=== PATIENT | female | born 1955 ===

== ENCOUNTER 2018-06-09 15:05 | Inpatient (IN) | payer OTHER ==
[2018-06-09] MEDS ORDERED: Naloxone 0.4 mg/ml Inj (Adult) ONE (15:16)
[2018-06-09 15:29] VITALS: BMI 24.1
--- NOTE | 2018-06-09 15:31 | CT ---
Date of service: 06/09/2018 PROCEDURE: CT HEAD WITHOUT CONTRAST. HISTORY: CODE STROKE COMPARISON: None available. TECHNIQUE: Axial computed tomography images were obtained through the head/brain without intravenous contrast. Radiation dose: Total exam DLP = 81.09 mGy-cm. This CT exam was performed using one or more of the following dose reduction techniques: Automated exposure control, adjustment of the mA and/or kV according to patient size, and/or use of iterative reconstruction technique. FINDINGS: HEMORRHAGE: No intracranial hemorrhage. BRAIN: No mass effect or edema. Mild diffuse atrophy. Moderate patchy and confluent periventricular and deep/subcortical white matter lucency consistent with microvascular ischemic change. Old bilateral basal ganglia lacunar infarcts. Old bilateral thalamic lacunar infarcts. Old left cerebellar hemispheric infarct. VENTRICLES: Unremarkable. No hydrocephalus. CALVARIUM: Unremarkable. PARANASAL SINUSES: Unremarkable as visualized. No significant inflammatory changes. MASTOID AIR CELLS: Unremarkable as visualized. No inflammatory changes. OTHER FINDINGS: None. IMPRESSION: No evidence of acute infarct. Old left cerebellar infarct and bilateral basal ganglia and thalamic lacunar infarcts. Moderate chronic white matter ischemic change. The findings in this report were discussed by telephone with Dr. Cruz at 3:20 p.m. on 06/09/2018.
--- NOTE | 2018-06-09 15:33 | RAD ---
Date of service: 06/09/2018 HISTORY: Code Stroke COMPARISON: No prior. FINDINGS: LUNGS: No active pulmonary disease. PLEURA: No significant pleural effusion identified, no pneumothorax apparent. CARDIOVASCULAR: Normal heart size. No congestive change. Right PICC catheter terminating in the region of the superior vena cava. OSSEOUS STRUCTURES: No significant abnormalities. VISUALIZED UPPER ABDOMEN: Normal. OTHER FINDINGS: None. IMPRESSION: No infiltrate. Right PICC catheter.
[2018-06-09 15:38] LABS: VENOUS BLOOD GAS BASE EXCESS -4.4 mmol/L (0.0-2.0); VENOUS BLOOD GAS PCO2 45 mmHg (40-60); VENOUS BLOOD GAS PO2 39 mm/Hg (30-55)
[2018-06-09 15:40] LABS: BASO # 0.1 K/uL (0.0-0.2); BASO % 0.6 % (0.0-2.0); EOS # 0.5 K/uL (0.0-0.7); EOS % 4.6 % (0.0-4.0); HEMOGLOBIN 12.5 g/dL (12.0-16.0); LYMPH # 2.2 K/uL (1.0-4.3); LYMPH % 19.4 % (20.0-40.0); MEAN CELL VOLUME 88.1 fl (81.0-99.0); MEAN CORPUSCULAR HEMOGLOBIN 28.3 pg (27.0-31.0); MEAN CORPUSCULAR HGB CONC 32.1 g/dL (33.0-37.0); MEAN PLATELET VOLUME 11.3 fl (7.2-11.7); MONO # 0.7 K/uL (0.0-0.8); MONO % 6.1 % (0.0-10.0); NEUT % 69.3 % (50.0-75.0); RBC 4.41 Mil/uL (3.80-5.20); RED CELL DISTRIBUTION WIDTH 18.2 % (11.5-14.5); WHITE BLOOD COUNT 11.5 K/uL (4.8-10.8)
[2018-06-09 15:46] LABS: INR 1.5; PROTHROMBIN TIME 17.2 Seconds (9.8-13.1)
[2018-06-09 15:48] LABS: PARTIAL THROMBOPLASTIN TIME 36.4 Seconds (25.6-37.1)
[2018-06-09] MEDS: Sodium Chloride 0.9% 1,000 ML IV SCH (15:52)
[2018-06-09 15:53] LABS: ALB/GLOB RATIO 0.8 (1.0-2.1); ALBUMIN 3.1 g/dL (3.5-5.0); ALT/SGPT 24 U/L (9-52); AST/SGOT 18 U/L (14-36); BLOOD UREA NITROGEN 16 mg/dl (7-17); GFR NON-AFRICAN AMERICAN 56; HDL CHOLESTEROL 31 MG/DL (30-70)
[2018-06-09 16:03] LABS: LDL CHOLESTEROL 45 mg/dL (0-129)
--- NOTE | 2018-06-09 16:04 | ED PDOC ---
HPI: Altered Mental Status Time Seen by Provider: 06/09/18 15:07 Chief Complaint (Nursing): Altered Mental Status Chief Complaint (Provider): Altered Mental Status History Per: EMS History/Exam Limitations: Clinical Condition Onset/Duration Of Symptoms: Hrs Onset Of Symptoms: Cannot Confirm Onset Current Symptoms Are (Timing): Still Present Additional Complaint(s): Barbara Miles is a 62 year old female with a past medical history of diabetes who was brought to the ED by EMS for evaluation of altered mental status. Patient is unable to give any history, but according to EMS, they were called to her home after she activated her life alert system. She was unable to open the door so they had to break into her apartment, where they found the patient on the ground poorly responsive. Patient at the scene was breathing with normal vital signs. PMD: Dr. Abdi (obtained later) Past Medical History Reviewed: Historical Data, Nursing Documentation, Vital Signs, Unable To Obtain Vital Signs: Last Vital Signs Temp 98.3 F 06/09/18 15:51 Pulse 67 06/09/18 15:57 Resp 20 06/09/18 15:57 BP 161/76 H 06/09/18 15:57 Pulse Ox 100 06/09/18 15:57 - Medical History PMH: CAD, Dementia, Diabetes, Deep Vein Thrombosis, GERD, HTN, Chronic Kidney Disease Other PMH: neuropathy, legally blind, recently treated osteomyelitis diabetic foot ulc - Surgical History Surgical History: Other surgeries: previous debridement of bilateral feet - Family History Family History: States: Unknown Family Hx - Social History Current smoker - smoking cessation education provided: Yes - Home Medications Home Medications: Ambulatory Orders Medication Instructions Recorded Apixaban [Eliquis] 5 mg PO Q12 06/09/18 Atorvastatin [Lipitor] 10 mg PO HS 06/09/18 Famotidine [Pepcid] 20 mg PO DAILY 06/09/18 Insulin Detemir [Levemir] 20 unit SC QAM 06/09/18 Insulin Detemir [Levemir] 30 unit SC HS 06/09/18 Insulin Lispro [humALOG] unit SC ASDIR 06/09/18 Lactobacillus Acidophilus 1 tab PO DAILY 06/09/18 [Acidophilus Probiotic] Pantoprazole Sodium [Protonix] 40 mg PO DAILY 06/09/18 RX: Aspirin [Ecotrin] 81 mg PO DAILY 06/09/18 RX: Atenolol [Tenormin] 50 mg PO DAILY 06/09/18 RX: Donepezil [Aricept] 10 mg PO DAILY 06/09/18 RX: Gabapentin [Neurontin] 400 mg PO Q8 06/09/18 RX: Losartan [Cozaar] 100 mg PO DAILY 06/09/18 RX: traMADol [Ultram] 50 mg PO Q6 PRN 06/09/18 cycloSPORINE [Restasis] 1 drop EACHEYE Q12 06/09/18 - Allergies Allergies/Adverse Reactions: Allergies Allergy/AdvReac Type Severity Reaction Status Date / Time acetaminophen [From Percocet] Allergy SWELLING Verified 06/09/18 16:17 oxycodone [From Percocet] Allergy SWELLING Verified 06/09/18 16:17 hydromorphone [From Dilaudid] AdvReac SHORTNESS Verified 06/09/18 16:17 OF BREATH Review of Systems ROS Statement: Except As Marked, All Systems Reviewed And Found Negative Review Of Systems: ROS cannot be obtained secondary to pt's inabilty to answer questions. Physical Exam - Reviewed Nursing Documentation Reviewed: Yes Vital Signs Reviewed: Yes - Physical Exam Appears: Positive for: In Acute Distress (neurologic) Head Exam: Positive for: ATRAUMATIC, NORMOCEPHALIC Skin: Positive for: Warm, Dry Eye Exam: Positive for: EOMI, PERRL, Other (no gaze deviation, abnormal light reflex in right eye possible surgical lens) ENT: Positive for: Other (dry mucus membranes) Neck: Positive for: Painless ROM, Supple Cardiovascular/Chest: Positive for: Regular Rate, Rhythm. Negative for: Murmur Respiratory: Positive for: Normal Breath Sounds. Negative for: Respiratory Distress Extremity: Positive for: Other (Picc Line in place in right upper extremity, right lower extremity BKA, left foot dressing in place, left foot edema; bilateral upper extremity: equal movement) Lymphatic: Negative for: Adenopathy Neurologic/Psych: Negative for: Other (lethargic, responsive to painful stimuli and withdrawing appropriately to pain; gag reflex intact (ontesting gag, patient coughed and suddnely said, "I want to go home"), minially verbal ) - Laboratory Results Result Diagrams: 06/10/18 04:22 06/10/18 04:22 - ECG O2 Sat by Pulse Oximetry: 100 (RA) Pulse Ox Interpretation: Normal Medical Decision Making Medical Decision Making: Time: 15:13 Impression: Altered Mental Status Differentials (including but not limited to): Stroke, Metabolic encephalopathy, drug and alcohol intoxication, sepsis, dehydration, medication adverse reaction Plan: --Blood Type and Screen --VBG Shock Panel --CT Head --EKG --Alcohol Serum --Ammonia --CMP --Drug Screen --Hemoglobin A1C --Lipid Panel --Magnesium --Phosphorous --TSH --Troponin --CBC --Coags --Chest X-ray --IV Fluids --Blood Culture --Urine Culture --Urinalysis --Patient found to be known patient to Hospital system named Barbara Miles: MR Number: [id number] --Patient has a history of: diabetes, chronic kidney disease, neuropathy, hypertension, legally blind, dementia, and recently treated osteomyelitis diabetic foot ulcer, CAD, GERD, and DVT --Surgical history: , previous debridement of bilateral --Patient is a smoker. --PMD: Dr. Abdi 15:59 --On reevaluation, patient continues to request to go home asking where her sister Graciela Miles is and her son Chidi Johnson. --Phone number available Graciela Miles: voicemail left [address] Orellana covering for Dr Abdi. Pt to be hospitalized for observation for possible syncope. Pt's family in ER. Pt now even more alert. Family in ER with patient and report that she sometimes episodes like this. No specific cause elucidated. Made aware of plan of care. Scribe Attestation: Documented by Mojgan Givens, acting as a scribe for Rebecca Cruz MD. Provider Scribe Attestation: All medical record entries made by the Scribe were at my direction and pers onally dictated by me. I have reviewed the chart and agree that the record accurately reflects my personal performance of the history, physical exam, medical decision making, and the department course for this patient. I have also personally directed, reviewed, and agree with the discharge instructions and disposition. Disposition - Clinical Impression Clinical Impression: Altered mental status - Disposition Disposition Time: 18:00 Condition: FAIR - Pt Status Changed To: Hospital Disposition Of: Observation - POA Present On Arrival: None
[2018-06-09 18:48] LABS: SQUAMOUS EPITHIAL 6 /hpf (0-5); URINE BACTERIA RARE (<OCC); URINE BILIRUBIN NEGATIVE (NEGATIVE); URINE BLOOD SMALL (NEGATIVE); URINE CLARITY SLIGHTY-CLOUDY (Clear); URINE COLOR YELLOW (YELLOW); URINE GLUCOSE (UA) 50 mg/dL (Normal); URINE LEUKOCYTE ESTERASE NEG Leu/uL (Negative); URINE PROTEIN >=500 mg/dL (NEGATIVE); URINE UROBILINOGEN 0.2-1.0 mg/dL (0.2-1.0)
[2018-06-09 19:10] LABS: BARBITURATES, UR NEGATIVE (NEGATIVE); BENZODIAZEPINES, UR NEGATIVE (NEGATIVE); OPIATES, UR NEGATIVE (NEGATIVE); PHENCYCLIDINE, UR NEGATIVE (NEGATIVE)
[2018-06-09] MEDS ORDERED: Cefepime 2 GM in Sodium Chloride 0.9% 100 ML IVPB STA (20:33)
[2018-06-10] MEDS: Sodium Chloride 0.9% 1,000 ML IV SCH ×3 (02:18→23:15)
[2018-06-10 05:33] LABS: HEMOGLOBIN 11.6 g/dL (12.0-16.0); MEAN CELL VOLUME 87.9 fl (81.0-99.0); MEAN CORPUSCULAR HEMOGLOBIN 28.1 pg (27.0-31.0); MEAN CORPUSCULAR HGB CONC 31.9 g/dL (33.0-37.0); RBC 4.14 Mil/uL (3.80-5.20); RED CELL DISTRIBUTION WIDTH 18.2 % (11.5-14.5); WHITE BLOOD COUNT 9.9 K/uL (4.8-10.8)
[2018-06-10 05:42] LABS: BLOOD UREA NITROGEN 13 mg/dl (7-17); CALCIUM 8.4 mg/dL (8.4-10.2); GFR NON-AFRICAN AMERICAN > 60
[2018-06-10] MEDS: Insulin Lispro (humaLOG) 100 Units/ml Inj SC SCH ×4 (08:56→23:09)
[2018-06-10] MEDS ORDERED: Pantoprazole 40 mg EC Tab PO SCH (09:00)
[2018-06-10] MEDS: Insulin Detemir 100 Units/ml Inj SC SCH ×2 (09:12→23:10)
--- NOTE | 2018-06-10 10:49 | CT ---
APPROVED REPORT Date of service: 06/09/2018 EKG Measurement Heart [id number] CA [id number] <Conclusion> Sinus rhythm with 1st degree AV block Otherwise normal ECG
[2018-06-10] MEDS: Lactobacillus Acidophilus 500 MU Cap PO SCH (11:13)
--- NOTE | 2018-06-10 12:58 | CP.PCM.CON ---
Addendum entered and electronically signed by Dima Nieto DPM 06/10/18 13:10: Ordered Left foot 3 views X-ray. Original Note: History of Present Illness - History of Present Illness History of Present Illness: Podiatry Consult note for Dr. Houston 62 y/o F with PMH diabetes, right BKA, and chronic left foot wounds seen and evaluated at the bedside for left heel ulcer. Patient is poor historian at this moment due to he current medical condition. Patient is oriented with persons but she looks confused. All the patient data obtained from her chart and her nurse. Patient was brought yesterday to the ED for AMS and probably CVS. Patient got admitted to ICU and Rosemarie Bates got consulted for her left heel ulcer. Patient is well known to the podiatry service for her long standing history of left foot ulcerations and PAD. Patient is currently on 6 weeks of IV ABx for her left foot acute OM and has a PICC line. Her nurse denies any overnight N/V/F/C/CP/SOB/D. PMH diabetes, right BKA, and chronic left foot wounds PSH: R leg BKA, multiple b/l foot wound debridements Allergies: Hydromorphone, shrimp Social Hx: Tobacco use with 40 pack/ year history, No Hx of ETOH/illicit drug use Review of Systems - Review of Systems Review of Systems: As per HPI Past Patient History - Past Social History Smoking Status: Former Smoker - CARDIAC Hx Cardiac Disorders: Yes (HTN, high cholesterol) Hx Hypercholesterolemia: Yes Hx Hypertension: Yes - PULMONARY Hx Respiratory Disorders: No - NEUROLOGICAL Hx Neurological Disorder: Yes (CVA) HX Cerebrovascular Accident: Yes Hx Dementia: Yes - RENAL Hx Chronic Kidney Disease: Yes - ENDOCRINE/METABOLIC Hx Endocrine Disorders: Yes (DM) Hx Diabetes Mellitus Type 2: Yes - HEMATOLOGICAL/ONCOLOGICAL Hx Blood Disorders: No - INTEGUMENTARY Hx Dermatological Problems: No - MUSCULOSKELETAL/RHEUMATOLOGICAL Hx Musculoskeletal Disorders: Yes (arthritis, RT BKA, osetomylitis left heel) Hx Arthritis: Yes Hx Falls: Yes Hx Osteomyelitis: Yes - GASTROINTESTINAL Hx Gastrointestinal Disorders: Yes Hx Gastroesophageal Reflux: Yes Hx Nausea: Yes Hx Ulcer: Yes - GENITOURINARY/GYNECOLOGICAL Hx Genitourinary Disorders: Yes (incontinence) Hx Incontinence: Yes - PSYCHIATRIC Hx Psychophysiologic Disorder: Yes (anxiety) Hx Anxiety: Yes Hx Substance Use: No - SURGICAL HISTORY Hx Surgeries: Yes (RBKA) Hx Amputation: Yes - ANESTHESIA Hx Anesthesia: Yes Hx Anesthesia Reactions: No Hx Malignant Hyperthermia: No Has any member of the family had a problem w/ anesthesia?: No Meds Allergies/Adverse Reactions: Allergies Allergy/AdvReac Type Severity Reaction Status Date / Time acetaminophen [From Percocet] Allergy SWELLING Verified 06/09/18 16:17 oxycodone [From Percocet] Allergy SWELLING Verified 06/09/18 16:17 hydromorphone [From Dilaudid] AdvReac SHORTNESS Verified 06/09/18 16:17 OF BREATH - Medications Medications: Current Medications Apixaban (Eliquis) 5 mg PO Q12 [facility]; Protocol Last Admin: 06/10/18 08:54 Dose: 5 mg Aspirin (Aspirin Chewable) 81 mg PO DAILY [facility] Last Admin: 06/10/18 11:13 Dose: 81 mg Atorvastatin Calcium (Lipitor) 10 mg PO HS [facility] Donepezil HCl (Aricept) 10 mg PO DAILY [facility] Last Admin: 06/10/18 08:52 Dose: 10 mg Famotidine (Pepcid) 20 mg PO DAILY [facility] Gabapentin (Neurontin) 400 mg PO Q8H [facility] Last Admin: 06/10/18 08:53 Dose: 400 mg Sodium Chloride (Sodium Chloride 0.9%) 1,000 mls @ 100 mls/hr IV .Q10H [facility] Last Admin: 06/10/18 12:22 Dose: 100 mls/hr Insulin Detemir (Levemir) 20 units SC QAM [facility] Last Admin: 06/10/18 09:12 Dose: Not Given Insulin Detemir (Levemir) 30 units SC [facility] Insulin Human Lispro (Humalog) 0 units SC [facility]; Protocol Last Admin: 06/10/18 08:56 Dose: Not Given Lactobacillus Acidophilus (Bacid Acidophilus) 1 cap PO DAILY [facility] Last Admin: 06/10/18 11:13 Dose: 1 cap Losartan Potassium (Cozaar) 100 mg PO DAILY [facility] Last Admin: 06/10/18 08:51 Dose: 100 mg Pantoprazole Sodium (Protonix Ec Tab) 40 mg PO DAILY [facility] Last Admin: 06/10/18 08:53 Dose: 40 mg Tramadol HCl (Ultram) 50 mg PO Q6 PRN PRN Reason: Other Last Admin: 06/10/18 08:46 Dose: 50 mg Physical Exam - Constitutional Appears: Non-toxic - Head Exam Head Exam: ATRAUMATIC, NORMOCEPHALIC - Extremities Exam Additional comments: Left LE focused exam, R LE BKA Vasc: DP/PT pulses faintly palpable 1/4. Temp gradient warm to cool from pr oximal to distal. Cap refill < 3 seconds to all digits. No edema or erythema noted. Neuro: Couldn't be assessed due to the patient current mental status. Derm: Approx. 3 cm x 2 cm X0.2 cm Oval ulceration noted to plantar/posterior left heel. Wound have fibrous and granular base 70:30.Positive probe to bone. no malodor. No drainage. No tracking, tunneling or undermining appreciated. No erythema MSK: Rigid contractures of all digits 1-5. Limited ROM at all major joints and diffuse arthritic changes. Muscle power couldn't be assessed due to the patient current mental status. No pain on palpating the abby-ulcerative area. Results - Vital Signs Recent Vital Signs: Last Vital Signs Temp 98.4 F 06/10/18 08:00 Pulse 66 06/10/18 10:00 Resp 14 06/10/18 10:00 BP 174/73 H 06/10/18 10:00 Pulse Ox 100 06/10/18 10:00 - Labs Result Diagrams: 06/10/18 04:22 06/10/18 04:22 Labs: Laboratory Results - last 24 hr 06/09/18 06/09/18 06/09/18 15:05 15:20 15:35 WBC 11.5 H RBC 4.41 Hgb 12.5 Hct 38.8 MCV 88.1 MCH 28.3 MCHC 32.1 L RDW 18.2 H Plt Count 286 MPV 11.3 Neut % (Auto) 69.3 Lymph % (Auto) 19.4 L [place] % (Auto) 6.1 Eos % (Auto) 4.6 H Baso % (Auto) 0.6 Neut # (Auto) 8.0 H Lymph # (Auto) 2.2 [place] # (Auto) 0.7 Eos # (Auto) 0.5 Baso # (Auto) 0.1 PT INR APTT pO2 39 VBG pH 7.30 L VBG pCO2 45 VBG HCO3 20.7 VBG Total CO2 23.5 VBG O2 Sat (Calc) 77.1 H VBG Base Excess -4.4 L VBG Potassium 3.8 Sodium 138.0 Chloride 109.0 H Glucose 144 H Lactate 1.7 FiO2 21.0 Potassium Carbon Dioxide Anion Gap BUN Creatinine Est GFR ( Amer) Est GFR (Non-Af Amer) POC Glucose (mg/dL) Random Glucose Hemoglobin A1c Calcium Phosphorus Magnesium Total Bilirubin AST ALT Alkaline Phosphatase Troponin I Total Protein Albumin Globulin Albumin/Globulin Ratio Triglycerides Cholesterol LDL Cholesterol Direct HDL Cholesterol TSH 3rd Generation Venous Blood Potassium 3.8 Urine Color Urine Clarity Urine pH Ur Specific [place] Urine Protein Urine Glucose (UA) Urine Ketones Urine Blood Urine Nitrate Urine Bilirubin Urine Urobilinogen Ur Leukocyte Esterase Urine RBC (Auto) Urine Microscopic WBC Ur Squamous Epith Cells Urine Bacteria Urine Opiates Screen Urine Methadone Screen Ur Barbiturates Screen Ur Phencyclidine Scrn Ur Amphetamines Screen U Benzodiazepines Scrn U Oth Cocaine Metabols U Cannabinoids Screen Alcohol, Quantitative Blood Type A POSITIVE Blood Type Confirm Antibody Screen Negative BBK History Checked No verified bt 06/09/18 06/09/18 06/09/18 15:35 15:35 15:35 WBC RBC Hgb Hct MCV MCH MCHC RDW Plt Count MPV Neut % (Auto) Lymph % (Auto) [place] % (Auto) Eos % (Auto) Baso % (Auto) Neut # (Auto) Lymph # (Auto) [place] # (Auto) Eos # (Auto) Baso # (Auto) PT 17.2 H INR 1.5 APTT 36.4 pO2 VBG pH VBG pCO2 VBG HCO3 VBG Total CO2 VBG O2 Sat (Calc) VBG Base Excess VBG Potassium Sodium 142 Chloride 113 H Glucose Lactate FiO2 Potassium 3.8 Carbon Dioxide 21 L Anion Gap 12 BUN 16 Creatinine 1.0 Est GFR ( Amer) > 60 Est GFR (Non-Af Amer) 56 POC Glucose (mg/dL) Random Glucose 134 H Hemoglobin A1c 6.5 Calcium 9.0 Phosphorus 3.0 Magnesium 1.9 Total Bilirubin 0.2 AST 18 ALT 24 Alkaline Phosphatase 117 Troponin I 0.0120 Total Protein 7.0 Albumin 3.1 L Globulin 3.9 Albumin/Globulin Ratio 0.8 L Triglycerides 199 H Cholesterol 115 LDL Cholesterol Direct 45 HDL Cholesterol 31 TSH 3rd Generation 0.74 Venous Blood Potassium Urine Color Urine Clarity Urine pH Ur Specific [place] Urine Protein Urine Glucose (UA) Urine Ketones Urine Blood Urine Nitrate Urine Bilirubin Urine Urobilinogen Ur Leukocyte Esterase Urine RBC (Auto) Urine Microscopic WBC Ur Squamous Epith Cells Urine Bacteria Urine Opiates Screen Urine Methadone Screen Ur Barbiturates Screen Ur Phencyclidine Scrn Ur Amphetamines Screen U Benzodiazepines Scrn U Oth Cocaine Metabols U Cannabinoids Screen Alcohol, Quantitative < 10 Blood Type Blood Type Confirm Antibody Screen BBK History Checked 06/09/18 06/09/18 06/09/18 17:14 18:34 18:34 WBC RBC Hgb Hct MCV MCH MCHC RDW Plt Count MPV Neut % (Auto) Lymph % (Auto) [place] % (Auto) Eos % (Auto) Baso % (Auto) Neut # (Auto) Lymph # (Auto) [place] # (Auto) Eos # (Auto) Baso # (Auto) PT INR APTT pO2 VBG pH VBG pCO2 VBG HCO3 VBG Total CO2 VBG O2 Sat (Calc) VBG Base Excess VBG Potassium Sodium Chloride Glucose Lactate FiO2 Potassium Carbon Dioxide Anion Gap BUN Creatinine Est GFR ( Amer) Est GFR (Non-Af Amer) POC Glucose (mg/dL) Random Glucose Hemoglobin A1c Calcium Phosphorus Magnesium Total Bilirubin AST ALT Alkaline Phosphatase Troponin I Total Protein Albumin Globulin Albumin/Globulin Ratio Triglycerides Cholesterol LDL Cholesterol Direct HDL Cholesterol TSH 3rd Generation Venous Blood Potassium Urine Color Yellow Urine Clarity Slighty-cloudy Urine pH 6.0 Ur Specific [place] 1.010 Urine Protein >=500 Urine Glucose (UA) 50 Urine Ketones Negative Urine Blood Small Urine Nitrate Negative Urine Bilirubin Negative Urine Urobilinogen 0.2-1.0 Ur Leukocyte Esterase Neg Urine RBC (Auto) 4 H Urine Microscopic WBC 1 Ur Squamous Epith Cells 6 H Urine Bacteria Rare Urine Opiates Screen Negative Urine Methadone Screen Negative Ur Barbiturates Screen Negative Ur Phencyclidine Scrn Negative Ur Amphetamines Screen Negative U Benzodiazepines Scrn Negative U Oth Cocaine Metabols Negative U Cannabinoids Screen Negative Alcohol, Quantitative Blood Type Blood Type Confirm A POSITIVE Antibody Screen BBK History Checked 06/10/18 06/10/18 06/10/18 01:43 04:22 04:22 WBC 9.9 RBC 4.14 Hgb 11.6 L Hct 36.4 MCV 87.9 MCH 28.1 MCHC 31.9 L RDW 18.2 H Plt Count 262 MPV Neut % (Auto) Lymph % (Auto) [place] % (Auto) Eos % (Auto) Baso % (Auto) Neut # (Auto) Lymph # (Auto) [place] # (Auto) Eos # (Auto) Baso # (Auto) PT INR APTT pO2 VBG pH VBG pCO2 VBG HCO3 VBG Total CO2 VBG O2 Sat (Calc) VBG Base Excess VBG Potassium Sodium 143 Chloride 115 H Glucose Lactate FiO2 Potassium 3.7 Carbon Dioxide 22 Anion Gap 10 BUN 13 Creatinine 0.9 Est GFR ( Amer) > 60 Est GFR (Non-Af Amer) > 60 POC Glucose (mg/dL) 149 H Random Glucose 116 H Hemoglobin A1c Calcium 8.4 Phosphorus Magnesium Total Bilirubin AST ALT Alkaline Phosphatase Troponin I Total Protein Albumin Globulin Albumin/Globulin Ratio Triglycerides Cholesterol LDL Cholesterol Direct HDL Cholesterol TSH 3rd Generation Venous Blood Potassium Urine Color Urine Clarity Urine pH Ur Specific [place] Urine Protein Urine Glucose (UA) Urine Ketones Urine Blood Urine Nitrate Urine Bilirubin Urine Urobilinogen Ur Leukocyte Esterase Urine RBC (Auto) Urine Microscopic WBC Ur Squamous Epith Cells Urine Bacteria Urine Opiates Screen Urine Methadone Screen Ur Barbiturates Screen Ur Phencyclidine Scrn Ur Amphetamines Screen U Benzodiazepines Scrn U Oth Cocaine Metabols U Cannabinoids Screen Alcohol, Quantitative Blood Type Blood Type Confirm Antibody Screen BBK History Checked Assessment & Plan - Assessment and Plan (Free Text) Assessment: 62 y/o F patient seen and evaluated for an ulcer of the L heel Plan: Patient seen and evaluated at the bedside with Dr. Houston. Plan discussed with Dr. Houston Charts, Labs and vitals reviewed: Afebrile, WBC 9.9 Patient received a stat dose of Cefepime 2 gms in the ED. LE MRI (05/02): possible early acute and or developing acute osteomyelitis with possible underlying cellulitis Multipodus boot ordered to be worn at all times while in bed Wound dressed with xeroform, DSD Ordered Bactroban to be added to the dressing starting tomorrow No plan for surgical intervention at this time Podiatry will continue to follow while patient in house. - Date & Time Date: 06/10/18 Time: 12:58
--- NOTE | 2018-06-10 14:16 | CARD ---
APPROVED REPORT Date of service: 06/10/2018 EXAM: Two-dimensional and M-mode echocardiogram with Doppler and color Doppler. Other Information Quality : AverageGoodRhythm : NSR Technically limited study due to body habitus. INDICATION BRADYCARDIA 2D DIMENSIONS IVSd1.71 (0.7-1.1cm)LVDd3.15 (3.9-5.9cm) LVOT Diameter1.69 (1.8-2.4cm)PWd0.97 (0.7-1.1cm) IVSs2.10 (0.8-1.2cm)LVDs2.23 (2.5-4.0cm) FS (%) 29.3 %PWs1.12 (0.8-1.2cm) M-Mode DIMENSIONS Left Atrium (MM)3.80 (2.5-4.0cm)Aortic Root2.40 (2.2-3.7cm) Aortic Valve AoV Peak Yqgnanyq487.5cm/sAoV VTI28.4cmAO Peak GR.5mmHg LVOT Peak Nuwtiscy23.3cm/sLVOT VTI18.62cmAO Mean GR.3mmHg MARILU (VMAX)0.84pq4HQG (VTI)0.85cm2 Mitral Valve MV E Cmqnpojb71.4cm/sMV DECEL [id number] A Reycxbpn12.0cm/s MV BDS23nyA/A ratio0.6MVA (PHT)3.16cm2 TDI Lateral E' Peak V6.60cm/sMedial E' Peak V6.17cm/sE/Lateral E'8.1 E/Medial E'8.7 Pulmonary Valve RVOT VTI21.4cm LEFT VENTRICLE The left ventricle is normal size. There is normal left ventricular wall thickness. The left ventricular systolic function is normal. The estimated ejection fraction is 60-65% No regional wall motion abnormalities noted.. Transmitral Doppler flow pattern is Grade I-abnormal relaxation pattern. No left ventricle thrombus noted on this study. There is no ventricular septal defect visualized. There is no left ventricular aneurysm. There is no mass noted in the left ventricle. RIGHT VENTRICLE The right ventricle is normal size. There is normal right ventricular wall thickness. The right ventricular systolic function is normal. ATRIA The left atrium is mildly dilated. The right atrium size is normal. The interatrial septum is intact with no evidence for an atrial septal defect. AORTIC VALVE The aortic valve is normal in structure. No aortic regurgitation is present. There is no aortic valvular stenosis. There is no aortic valvular vegetation. MITRAL VALVE The mitral valve is normal in structure. There is no evidence of mitral valve prolapse. There is no mitral valve stenosis. There is no mitral valve regurgitation noted. TRICUSPID VALVE The tricuspid valve is normal in structure. There is trace tricuspid regurgitation. There is no tricuspid valve prolapse or vegetation. There is no tricuspid valve stenosis. PULMONIC VALVE The pulmonary valve is normal in structure. There is no pulmonic valvular regurgitation. There is no pulmonic valvular stenosis. GREAT VESSELS The aortic root is normal in size. The ascending aorta is normal in size. The pulmonary artery is normal. The IVC is normal in size and collapses >50% with inspiration. PERICARDIAL EFFUSION There is no pericardial effusion. There is no pleural effusion. <Conclusion> Technically difficult study. The estimated ejection fraction is 60-65% Transmitral Doppler flow pattern is Grade I-abnormal relaxation pattern. The left atrium is mildly dilated. There is trace tricuspid regurgitation.
--- NOTE | 2018-06-10 14:29 | CP.PCM.CON ---
History of Present Illness - History of Present Illness History of Present Illness: Infectious Disease Consultation Note. asked to see this patient at the request of for high wbc and h/o OM and help with antibiotic management. HPI- History obtained from khushbu obrien her sister who is at bedside and the medical chart. Patient is a 62 year old female with pmh of HTN, DM II, CAD with recent cardiac cath , GERD, Dementia, DVT Chronic Kidney disease , Neuropathy, right BKA for OM who was recently hospitalized at [facility] and was being treated by ID doctor there for left heel diabetic nonhealing wound/ulcer and OM. reviewd the notes from [facility] and as per medical records she had debridement of her left heel nonhealing ulcer on 05/09/2018 . did not find OR bone culture or bone biopsy report( not sure if this was done or not at [facility]) pt. had pseudomonal positive wound cx and was on IV cefepime and daptomycin as per Id doctor there and she was d/c home with right arm picc line to complete her IV abx for left heel Om/pseudomoas. As pr pt. her right arm picc line was placed more than 4 weeks ago. Pt. was admitted to [facility] bc she states she slipped at home as she was going to the bathroom. Apparently pt. was initially confused when EMS brought her but currently she is awake, alert and answers all questions. Review of Systems - Review of Systems Review of Systems: ROS- denies any fever or chills, denies any NAJERA, denies any cough or sob, denies any chest pain, denies any nausea or vomiting, denies any abd. pain, denies any diarrhea , denies any dysurea, c/o itching uner b/l breasts and in the buttock region Past Patient History - Past Social History Smoking Status: Former Smoker Alcohol: None Drugs: Denies Home Situation {Lives}: Alone - CARDIAC Hx Cardiac Disorders: Yes (HTN, high cholesterol) Hx Hypercholesterolemia: Yes Hx Hypertension: Yes - PULMONARY Hx Respiratory Disorders: No - NEUROLOGICAL Hx Neurological Disorder: Yes (CVA) HX Cerebrovascular Accident: Yes Hx Dementia: Yes - RENAL Hx Chronic Kidney Disease: Yes - ENDOCRINE/METABOLIC Hx Endocrine Disorders: Yes (DM) Hx Diabetes Mellitus Type 2: Yes - HEMATOLOGICAL/ONCOLOGICAL Hx Blood Disorders: No - INTEGUMENTARY Hx Dermatological Problems: No - MUSCULOSKELETAL/RHEUMATOLOGICAL Hx Musculoskeletal Disorders: Yes (arthritis, RT BKA, osetomylitis left heel) Hx Arthritis: Yes Hx Falls: Yes Hx Osteomyelitis: Yes - GASTROINTESTINAL Hx Gastrointestinal Disorders: Yes Hx Gastroesophageal Reflux: Yes Hx Nausea: Yes Hx Ulcer: Yes - GENITOURINARY/GYNECOLOGICAL Hx Genitourinary Disorders: Yes (incontinence) Hx Incontinence: Yes - PSYCHIATRIC Hx Psychophysiologic Disorder: Yes (anxiety) Hx Anxiety: Yes Hx Substance Use: No - SURGICAL HISTORY Hx Surgeries: Yes (RBKA) Hx Amputation: Yes - ANESTHESIA Hx Anesthesia: Yes Hx Anesthesia Reactions: No Hx Malignant Hyperthermia: No Has any member of the family had a problem w/ anesthesia?: No Meds Allergies/Adverse Reactions: Allergies Allergy/AdvReac Type Severity Reaction Status Date / Time acetaminophen [From Percocet] Allergy SWELLING Verified 06/09/18 16:17 oxycodone [From Percocet] Allergy SWELLING Verified 06/09/18 16:17 hydromorphone [From Dilaudid] AdvReac SHORTNESS Verified 06/09/18 16:17 OF BREATH - Medications Medications: Current Medications Apixaban (Eliquis) 5 mg PO Q12 [facility]; Protocol Last Admin: 06/10/18 08:54 Dose: 5 mg Aspirin (Aspirin Chewable) 81 mg PO DAILY [facility] Last Admin: 06/10/18 11:13 Dose: 81 mg Atorvastatin Calcium (Lipitor) 10 mg PO HS [facility] Donepezil HCl (Aricept) 10 mg PO DAILY [facility] Last Admin: 06/10/18 08:52 Dose: 10 mg Famotidine (Pepcid) 20 mg PO DAILY [facility] Gabapentin (Neurontin) 400 mg PO Q8H [facility] Last Admin: 06/10/18 08:53 Dose: 400 mg Sodium Chloride (Sodium Chloride 0.9%) 1,000 mls @ 100 mls/hr IV .Q10H [facility] Last Admin: 06/10/18 12:22 Dose: 100 mls/hr Insulin Detemir (Levemir) 20 units SC QAM [facility] Last Admin: 06/10/18 09:12 Dose: Not Given Insulin Detemir (Levemir) 30 units SC HS [facility] Insulin Human Lispro (Humalog) 0 units SC ACHS [facility]; Protocol Last Admin: 06/10/18 13:40 Dose: 1 units Lactobacillus Acidophilus (Bacid Acidophilus) 1 cap PO DAILY [facility] Last Admin: 06/10/18 11:13 Dose: 1 cap Losartan Potassium (Cozaar) 100 mg PO DAILY [facility] Last Admin: 06/10/18 08:51 Dose: 100 mg Mupirocin (Bactroban Cream) 1 applic TOP BID [facility] Pantoprazole Sodium (Protonix Ec Tab) 40 mg PO DAILY [facility] Last Admin: 06/10/18 08:53 Dose: 40 mg Tramadol HCl (Ultram) 50 mg PO Q6 PRN PRN Reason: Other Last Admin: 06/10/18 08:46 Dose: 50 mg Physical Exam - Constitutional Appears: No Acute Distress - Head Exam Head Exam: ATRAUMATIC - ENT Exam ENT Exam: Normal Oropharynx - Neck Exam Neck exam: Positive for: Full Rom - Respiratory Exam Respiratory Exam: Clear to Auscultation Bilateral, NORMAL BREATHING PATTERN - Cardiovascular Exam Cardiovascular Exam: RRR, +S1, +S2 - GI/Abdominal Exam GI & Abdominal Exam: Normal Bowel Sounds, Soft Additional comments: NT, ND - Extremities Exam Additional comments: Right BKA site clean/dry/Intact left heel about 4 x 6 cm wound without any malodor, minimal clear/discharge no surrounding erythema - Neurological Exam Neurological exam: Alert, Oriented x3 - Skin Additional comments: fungal rash under b/l breast and b/l groin region and b/l gluteus region and b/l axilla extensive and pruritic (intertrigo) - Additional Findings Additional findings: Lines- right aarm PICC line wuth erythema in the region and minimal tenderness to palpation Results - Vital Signs Recent Vital Signs: Last Vital Signs Temp 98.4 F 06/10/18 08:00 Pulse 66 06/10/18 10:00 Resp 14 06/10/18 10:00 BP 174/73 H 06/10/18 10:00 Pulse Ox 100 06/10/18 10:00 - Labs Result Diagrams: 06/10/18 04:22 06/10/18 04:22 Labs: Laboratory Results - last 24 hr 06/09/18 06/09/18 06/09/18 15:05 15:20 15:35 WBC 11.5 H RBC 4.41 Hgb 12.5 Hct 38.8 MCV 88.1 MCH 28.3 MCHC 32.1 L RDW 18.2 H Plt Count 286 MPV 11.3 Neut % (Auto) 69.3 Lymph % (Auto) 19.4 L [place] % (Auto) 6.1 Eos % (Auto) 4.6 H Baso % (Auto) 0.6 Neut # (Auto) 8.0 H Lymph # (Auto) 2.2 [place] # (Auto) 0.7 Eos # (Auto) 0.5 Baso # (Auto) 0.1 PT INR APTT pO2 39 VBG pH 7.30 L VBG pCO2 45 VBG HCO3 20.7 VBG Total CO2 23.5 VBG O2 Sat (Calc) 77.1 H VBG Base Excess -4.4 L VBG Potassium 3.8 Sodium 138.0 Chloride 109.0 H Glucose 144 H Lactate 1.7 FiO2 21.0 Potassium Carbon Dioxide Anion Gap BUN Creatinine Est GFR ( Amer) Est GFR (Non-Af Amer) POC Glucose (mg/dL) Random Glucose Hemoglobin A1c Calcium Phosphorus Magnesium Total Bilirubin AST ALT Alkaline Phosphatase Troponin I Total Protein Albumin Globulin Albumin/Globulin Ratio Triglycerides Cholesterol LDL Cholesterol Direct HDL Cholesterol TSH 3rd Generation Venous Blood Potassium 3.8 Urine Color Urine Clarity Urine pH Ur Specific [place] Urine Protein Urine Glucose (UA) Urine Ketones Urine Blood Urine Nitrate Urine Bilirubin Urine Urobilinogen Ur Leukocyte Esterase Urine RBC (Auto) Urine Microscopic WBC Ur Squamous Epith Cells Urine Bacteria Urine Opiates Screen Urine Methadone Screen Ur Barbiturates Screen Ur Phencyclidine Scrn Ur Amphetamines Screen U Benzodiazepines Scrn U Oth Cocaine Metabols U Cannabinoids Screen Alcohol, Quantitative Blood Type A POSITIVE Blood Type Confirm Antibody Screen Negative BBK History Checked No verified bt 06/09/18 06/09/18 06/09/18 15:35 15:35 15:35 WBC RBC Hgb Hct MCV MCH MCHC RDW Plt Count MPV Neut % (Auto) Lymph % (Auto) [place] % (Auto) Eos % (Auto) Baso % (Auto) Neut # (Auto) Lymph # (Auto) [place] # (Auto) Eos # (Auto) Baso # (Auto) PT 17.2 H INR 1.5 APTT 36.4 pO2 VBG pH VBG pCO2 VBG HCO3 VBG Total CO2 VBG O2 Sat (Calc) VBG Base Excess VBG Potassium Sodium 142 Chloride 113 H Glucose Lactate FiO2 Potassium 3.8 Carbon Dioxide 21 L Anion Gap 12 BUN 16 Creatinine 1.0 Est GFR ( Amer) > 60 Est GFR (Non-Af Amer) 56 POC Glucose (mg/dL) Random Glucose 134 H Hemoglobin A1c 6.5 Calcium 9.0 Phosphorus 3.0 Magnesium 1.9 Total Bilirubin 0.2 AST 18 ALT 24 Alkaline Phosphatase 117 Troponin I 0.0120 Total Protein 7.0 Albumin 3.1 L Globulin 3.9 Albumin/Globulin Ratio 0.8 L Triglycerides 199 H Cholesterol 115 LDL Cholesterol Direct 45 HDL Cholesterol 31 TSH 3rd Generation 0.74 Venous Blood Potassium Urine Color Urine Clarity Urine pH Ur Specific [place] Urine Protein Urine Glucose (UA) Urine Ketones Urine Blood Urine Nitrate Urine Bilirubin Urine Urobilinogen Ur Leukocyte Esterase Urine RBC (Auto) Urine Microscopic WBC Ur Squamous Epith Cells Urine Bacteria Urine Opiates Screen Urine Methadone Screen Ur Barbiturates Screen Ur Phencyclidine Scrn Ur Amphetamines Screen U Benzodiazepines Scrn U Oth Cocaine Metabols U Cannabinoids Screen Alcohol, Quantitative < 10 Blood Type Blood Type Confirm Antibody Screen BBK History Checked 06/09/18 06/09/18 06/09/18 17:14 18:34 18:34 WBC RBC Hgb Hct MCV MCH MCHC RDW Plt Count MPV Neut % (Auto) Lymph % (Auto) [place] % (Auto) Eos % (Auto) Baso % (Auto) Neut # (Auto) Lymph # (Auto) [place] # (Auto) Eos # (Auto) Baso # (Auto) PT INR APTT pO2 VBG pH VBG pCO2 VBG HCO3 VBG Total CO2 VBG O2 Sat (Calc) VBG Base Excess VBG Potassium Sodium Chloride Glucose Lactate FiO2 Potassium Carbon Dioxide Anion Gap BUN Creatinine Est GFR ( Amer) Est GFR (Non-Af Amer) POC Glucose (mg/dL) Random Glucose Hemoglobin A1c Calcium Phosphorus Magnesium Total Bilirubin AST ALT Alkaline Phosphatase Troponin I Total Protein Albumin Globulin Albumin/Globulin Ratio Triglycerides Cholesterol LDL Cholesterol Direct HDL Cholesterol TSH 3rd Generation Venous Blood Potassium Urine Color Yellow Urine Clarity Slighty-cloudy Urine pH 6.0 Ur Specific [place] 1.010 Urine Protein >=500 Urine Glucose (UA) 50 Urine Ketones Negative Urine Blood Small Urine Nitrate Negative Urine Bilirubin Negative Urine Urobilinogen 0.2-1.0 Ur Leukocyte Esterase Neg Urine RBC (Auto) 4 H Urine Microscopic WBC 1 Ur Squamous Epith Cells 6 H Urine Bacteria Rare Urine Opiates Screen Negative Urine Methadone Screen Negative Ur Barbiturates Screen Negative Ur Phencyclidine Scrn Negative Ur Amphetamines Screen Negative U Benzodiazepines Scrn Negative U Oth Cocaine Metabols Negative U Cannabinoids Screen Negative Alcohol, Quantitative Blood Type Blood Type Confirm A POSITIVE Antibody Screen BBK History Checked 06/10/18 06/10/18 06/10/18 01:43 04:22 04:22 WBC 9.9 RBC 4.14 Hgb 11.6 L Hct 36.4 MCV 87.9 MCH 28.1 MCHC 31.9 L RDW 18.2 H Plt Count 262 MPV Neut % (Auto) Lymph % (Auto) [place] % (Auto) Eos % (Auto) Baso % (Auto) Neut # (Auto) Lymph # (Auto) [place] # (Auto) Eos # (Auto) Baso # (Auto) PT INR APTT pO2 VBG pH VBG pCO2 VBG HCO3 VBG Total CO2 VBG O2 Sat (Calc) VBG Base Excess VBG Potassium Sodium 143 Chloride 115 H Glucose Lactate FiO2 Potassium 3.7 Carbon Dioxide 22 Anion Gap 10 BUN 13 Creatinine 0.9 Est GFR ( Amer) > 60 Est GFR (Non-Af Amer) > 60 POC Glucose (mg/dL) 149 H Random Glucose 116 H Hemoglobin A1c Calcium 8.4 Phosphorus Magnesium Total Bilirubin AST ALT Alkaline Phosphatase Troponin I Total Protein Albumin Globulin Albumin/Globulin Ratio Triglycerides Cholesterol LDL Cholesterol Direct HDL Cholesterol TSH 3rd Generation Venous Blood Potassium Urine Color Urine Clarity Urine pH Ur Specific [place] Urine Protein Urine Glucose (UA) Urine Ketones Urine Blood Urine Nitrate Urine Bilirubin Urine Urobilinogen Ur Leukocyte Esterase Urine RBC (Auto) Urine Microscopic WBC Ur Squamous Epith Cells Urine Bacteria Urine Opiates Screen Urine Methadone Screen Ur Barbiturates Screen Ur Phencyclidine Scrn Ur Amphetamines Screen U Benzodiazepines Scrn U Oth Cocaine Metabols U Cannabinoids Screen Alcohol, Quantitative Blood Type Blood Type Confirm Antibody Screen BBK History Checked Laboratory Results - last 72 hr 06/09/18 06/09/18 06/09/18 15:05 15:20 15:35 WBC 11.5 H RBC 4.41 Hgb 12.5 Hct 38.8 MCV 88.1 MCH 28.3 MCHC 32.1 L RDW 18.2 H Plt Count 286 MPV 11.3 Neut % (Auto) 69.3 Lymph % (Auto) 19.4 L [place] % (Auto) 6.1 Eos % (Auto) 4.6 H Baso % (Auto) 0.6 Neut # (Auto) 8.0 H Lymph # (Auto) 2.2 [place] # (Auto) 0.7 Eos # (Auto) 0.5 Baso # (Auto) 0.1 PT INR APTT pO2 39 VBG pH 7.30 L VBG pCO2 45 VBG HCO3 20.7 VBG Total CO2 23.5 VBG O2 Sat (Calc) 77.1 H VBG Base Excess -4.4 L VBG Potassium 3.8 Sodium 138.0 Chloride 109.0 H Glucose 144 H Lactate 1.7 FiO2 21.0 Potassium Carbon Dioxide Anion Gap BUN Creatinine Est GFR ( Amer) Est GFR (Non-Af Amer) POC Glucose (mg/dL) Random Glucose Hemoglobin A1c Calcium Phosphorus Magnesium Total Bilirubin AST ALT Alkaline Phosphatase Troponin I Total Protein Albumin Globulin Albumin/Globulin Ratio Triglycerides Cholesterol LDL Cholesterol Direct HDL Cholesterol TSH 3rd Generation Venous Blood Potassium 3.8 Urine Color Urine Clarity Urine pH Ur Specific [place] Urine Protein Urine Glucose (UA) Urine Ketones Urine Blood Urine Nitrate Urine Bilirubin Urine Urobilinogen Ur Leukocyte Esterase Urine RBC (Auto) Urine Microscopic WBC Ur Squamous Epith Cells Urine Bacteria Urine Opiates Screen Urine Methadone Screen Ur Barbiturates Screen Ur Phencyclidine Scrn Ur Amphetamines Screen U Benzodiazepines Scrn U Oth Cocaine Metabols U Cannabinoids Screen Alcohol, Quantitative Blood Type A POSITIVE Blood Type Confirm Antibody Screen Negative BBK History Checked No verified bt 06/09/18 06/09/18 06/09/18 15:35 15:35 15:35 WBC RBC Hgb Hct MCV MCH MCHC RDW Plt Count MPV Neut % (Auto) Lymph % (Auto) [place] % (Auto) Eos % (Auto) Baso % (Auto) Neut # (Auto) Lymph # (Auto) [place] # (Auto) Eos # (Auto) Baso # (Auto) PT 17.2 H INR 1.5 APTT 36.4 pO2 VBG pH VBG pCO2 VBG HCO3 VBG Total CO2 VBG O2 Sat (Calc) VBG Base Excess VBG Potassium Sodium 142 Chloride 113 H Glucose Lactate FiO2 Potassium 3.8 Carbon Dioxide 21 L Anion Gap 12 BUN 16 Creatinine 1.0 Est GFR ( Amer) > 60 Est GFR (Non-Af Amer) 56 POC Glucose (mg/dL) Random Glucose 134 H Hemoglobin A1c 6.5 Calcium 9.0 Phosphorus 3.0 Magnesium 1.9 Total Bilirubin 0.2 AST 18 ALT 24 Alkaline Phosphatase 117 Troponin I 0.0120 Total Protein 7.0 Albumin 3.1 L Globulin 3.9 Albumin/Globulin Ratio 0.8 L Triglycerides 199 H Cholesterol 115 LDL Cholesterol Direct 45 HDL Cholesterol 31 TSH 3rd Generation 0.74 Venous Blood Potassium Urine Color Urine Clarity Urine pH Ur Specific [place] Urine Protein Urine Glucose (UA) Urine Ketones Urine Blood Urine Nitrate Urine Bilirubin Urine Urobilinogen Ur Leukocyte Esterase Urine RBC (Auto) Urine Microscopic WBC Ur Squamous Epith Cells Urine Bacteria Urine Opiates Screen Urine Methadone Screen Ur Barbiturates Screen Ur Phencyclidine Scrn Ur Amphetamines Screen U Benzodiazepines Scrn U Oth Cocaine Metabols U Cannabinoids Screen Alcohol, Quantitative < 10 Blood Type Blood Type Confirm Antibody Screen BBK History Checked 06/09/18 06/09/18 06/09/18 17:14 18:34 18:34 WBC RBC Hgb Hct MCV MCH MCHC RDW Plt Count MPV Neut % (Auto) Lymph % (Auto) [place] % (Auto) Eos % (Auto) Baso % (Auto) Neut # (Auto) Lymph # (Auto) [place] # (Auto) Eos # (Auto) Baso # (Auto) PT INR APTT pO2 VBG pH VBG pCO2 VBG HCO3 VBG Total CO2 VBG O2 Sat (Calc) VBG Base Excess VBG Potassium Sodium Chloride Glucose Lactate FiO2 Potassium Carbon Dioxide Anion Gap BUN Creatinine Est GFR ( Amer) Est GFR (Non-Af Amer) POC Glucose (mg/dL) Random Glucose Hemoglobin A1c Calcium Phosphorus Magnesium Total Bilirubin AST ALT Alkaline Phosphatase Troponin I Total Protein Albumin Globulin Albumin/Globulin Ratio Triglycerides Cholesterol LDL Cholesterol Direct HDL Cholesterol TSH 3rd Generation Venous Blood Potassium Urine Color Yellow Urine Clarity Slighty-cloudy Urine pH 6.0 Ur Specific [place] 1.010 Urine Protein >=500 Urine Glucose (UA) 50 Urine Ketones Negative Urine Blood Small Urine Nitrate Negative Urine Bilirubin Negative Urine Urobilinogen 0.2-1.0 Ur Leukocyte Esterase Neg Urine RBC (Auto) 4 H Urine Microscopic WBC 1 Ur Squamous Epith Cells 6 H Urine Bacteria Rare Urine Opiates Screen Negative Urine Methadone Screen Negative Ur Barbiturates Screen Negative Ur Phencyclidine Scrn Negative Ur Amphetamines Screen Negative U Benzodiazepines Scrn Negative U Oth Cocaine Metabols Negative U Cannabinoids Screen Negative Alcohol, Quantitative Blood Type Blood Type Confirm A POSITIVE Antibody Screen BBK History Checked 1006/10/18 06/10/18 01:43 04:22 04:22 WBC 9.9 RBC 4.14 Hgb 11.6 L Hct 36.4 MCV 87.9 MCH 28.1 MCHC 31.9 L RDW 18.2 H Plt Count 262 MPV Neut % (Auto) Lymph % (Auto) [place] % (Auto) Eos % (Auto) Baso % (Auto) Neut # (Auto) Lymph # (Auto) [place] # (Auto) Eos # (Auto) Baso # (Auto) PT INR APTT pO2 VBG pH VBG pCO2 VBG HCO3 VBG Total CO2 VBG O2 Sat (Calc) VBG Base Excess VBG Potassium Sodium 143 Chloride 115 H Glucose Lactate FiO2 Potassium 3.7 Carbon Dioxide 22 Anion Gap 10 BUN 13 Creatinine 0.9 Est GFR ( Amer) > 60 Est GFR (Non-Af Amer) > 60 POC Glucose (mg/dL) 149 H Random Glucose 116 H Hemoglobin A1c Calcium 8.4 Phosphorus Magnesium Total Bilirubin AST ALT Alkaline Phosphatase Troponin I Total Protein Albumin Globulin Albumin/Globulin Ratio Triglycerides Cholesterol LDL Cholesterol Direct HDL Cholesterol TSH 3rd Generation Venous Blood Potassium Urine Color Urine Clarity Urine pH Ur Specific [place] Urine Protein Urine Glucose (UA) Urine Ketones Urine Blood Urine Nitrate Urine Bilirubin Urine Urobilinogen Ur Leukocyte Esterase Urine RBC (Auto) Urine Microscopic WBC Ur Squamous Epith Cells Urine Bacteria Urine Opiates Screen Urine Methadone Screen Ur Barbiturates Screen Ur Phencyclidine Scrn Ur Amphetamines Screen U Benzodiazepines Scrn U Oth Cocaine Metabols U Cannabinoids Screen Alcohol, Quantitative Blood Type Blood Type Confirm Antibody Screen BBK History Checked Assessment & Plan (1) Non-healing wound of left heel Status: Acute (2) Status post below knee amputation of right lower extremity Status: Acute (3) Diabetes Status: Acute (4) Intertrigo Status: Acute (5) Intertrigo Status: Acute - Assessment and Plan (Free Text) Assessment: A/P- 62 year old female with multiple medical conditions including DM II, CAd, HTN, h/o OM of right leg s/p right leg BKA, left heel nonhealing diabetic wound s/p debridement at [facility] a month ago has been on IV abx for pseudomoal infection of the left heel wound for past month as per Id doc at the other hospital who is now admitted for ? syncopal epsiode . pt. not septic. she is afebrile minimal leukocytosis only right arm picc line site erythematous extensive intertrigo b/l groin/axailla, gluteal and Under b/l breast Plan- advise to d/c right arm picc line and place either peripheral IVL or central line for now. check blood cx x 2. advise to continue with IV cefepime as pt. has responded well to this. advise to apply nystatin powder along with clotrimazole ointment to affected areas . check ESR. advise to check MRI of left foot r/o OM. All labs and imaging and notes reviewed. all above d/w patient and she verbalizes full understanding of all above and agrees with above plan of care. Thank you for allowing me to take part in the care of this patient.
--- NOTE | 2018-06-10 14:42 | CON ---
DATE: 06/10/2018 CARDIOLOGY CONSULTATION REASON FOR CONSULTATION: Syncopal episode and symptomatic bradycardia. HISTORY OF PRESENT ILLNESS: The patient is 62-year-old female who has a history of longstanding diabetes mellitus with diabetic retinopathy, history of peripheral vascular disease, status post right below-knee amputation last year, according to the patient, at [facility]; however, no obtainable records on the [employer] database to substantiate that she was at [facility]. The patient also has chronic left heel ulcer for which the patient is receiving intravenous antibiotics at home. The patient had a PICC line for that and the patient's sister administered the antibiotics to her. The patient stated that she collapsed at home as she was trying to go to a sofa near the kitchen. She stated that she slid into the floor, did not sustain any injuries. She started to activate the emergency medical service with a pendant. Later on, apparently the police was able to come through the first floor window and the patient was brought to the emergency room. The patient does not recall the event until she was in the emergency room. In the ICU, the patient was noted to have periods of 2:1 AV block with the heart rate around 45 and at one point, she did have a complete AV block with a heart rate about 36 beats per minute. The patient denies experiencing dizziness while in the ICU. SOCIAL HISTORY: Nonsmoker. She lives with her sister. MEDICATIONS: Aricept 10 mg once a day, aspirin 81 mg once a day, lactobacillus one tablet daily, Cozaar 100 mg daily, Eliquis 500 mg twice a day, Lipitor 10 mg once a day, Pepcid 20 mg once a day, Protonix 40 mg once a day, normal saline 100 mL an hour, Ultram 50 mg every 6 hours. REVIEW OF SYSTEMS: The patient denies any fever or chills. Denies any headache or retrosternal chest pain and does not recall experiencing palpitation. PHYSICAL EXAMINATION: GENERAL: The patient is a middle-aged female, who does not appear to be in acute distress. VITAL SIGNS: On admission, blood pressure was 161/76, heart rate 66, temperature 98.3, and respirations 18. HEENT: Poor visual acuity. NECK: No JVD. CHEST: Clear. HEART: S1 and S2, regular. ABDOMEN: Soft. EXTREMITIES: Right below-knee amputation and dressings applied to the left heel. LABORATORY DATA: SMA-7: Sodium 143, potassium 3.7, chloride 115, CO2 22, glucose 116, BUN 16, creatinine 0.9. TSH level is within normal limits. Triglycerides 199 and the rest of lipid profile is within normal limits. Hemoglobin and hematocrit 11.6 and 36.4, white count and platelet count are within normal limits. Urine drug screen is negative. EKG: Sinus rhythm at the rate of 67, first-degree AV block. Head CT scan without contrast. No evidence of acute infarct or left cerebellar infarct and bilateral basal ganglia and thalamic lacunar infarcts, moderate chronic white matter ischemic changes. ASSESSMENT: 1. Syncopal episode. 2. Symptomatic bradycardia. 3. Diabetes mellitus with diabetic retinopathy and peripheral vascular disease. 4. Status post right below-knee amputation and chronic left heel ulcer, possibly osteomyelitis. 5. Questionable history of atrial fibrillation as the patient was on Eliquis. RECOMMENDATIONS: I discontinued atenolol. Continue current Aricept 10 mg once a day, Cozaar 100 mg once a day, Eliquis 5 mg twice a day, Lipitor 10 mg once a day, Neurontin 400 mg every 8 hours, normal saline 100 mL an hour. We will obtain medical history from the patient's sister when she is available. The patient's only available visit on [employer] database is this time only. I did request electrophysiology evaluation from Dr. Hoang Miller. Obtain an echocardiogram which has been already ordered. Tommy Willett MD
--- NOTE | 2018-06-10 16:02 | RAD ---
Date of service: 06/10/2018 PROCEDURE: Left Foot Radiographs. HISTORY: L heel ulcer. OM. COMPARISON: None. FINDINGS: BONES: Three views of the left foot were performed for left foot and heel pain and ulcer. No prior studies are available for comparison. No acute fracture is seen. Degenerative changes are seen in the foot. There appears to be the suggestion of some mild soft tissue ulceration along the lateral aspect of the foot posteriorly, as well as some heterogeneous soft tissue density in the heel region of the left foot. No definite periosteal reaction or bone destruction or cortical regularity is noted to suggest osteomyelitis. No periosteal reaction is seen. There appears to be evidence of prior surgery to the left 1st metatarsal distally consistent with osteotomy. JOINTS: See above SOFT TISSUES: See above OTHER FINDINGS: None. IMPRESSION: Soft tissue thickening in the heel pad region of the left foot. No definite plain film evidence of bone destruction or osteomyelitis. Further clinical follow-up is suggested. MRI may prove helpful if there is strong clinical concern.
[2018-06-10] MEDS: Mupirocin 2% Cream TOP SCH (16:55)
--- NOTE | 2018-06-10 18:07 | CP.PCM.CON ---
History of Present Illness - History of Present Illness History of Present Illness: Neurology Consultation Note: Mrs. Mcnair is a 62-year-old woman with a past medical history of CAD, Dementia, Diabetes, Deep Vein Thrombosis, GERD, HTN, Chronic Kidney Disease, neuropathy, legally blind, recently treated osteomyelitis diabetic foot, right lower extremity BKA, who had a syncopal episode while transferring from chair to bed. She was found by EMS to be confused initially. Today, she is back to baseline, pleasant and conversant. Review of Systems - Review of Systems All systems: reviewed and no additional remarkable complaints except Past Patient History - Past Social History Smoking Status: Former Smoker - CARDIAC Hx Hypertension: Yes - PULMONARY Hx Respiratory Disorders: No - NEUROLOGICAL Hx Dementia: Yes - RENAL Hx Chronic Kidney Disease: Yes - ENDOCRINE/METABOLIC Hx Endocrine Disorders: Yes (DM) Hx Diabetes Mellitus Type 2: Yes - HEMATOLOGICAL/ONCOLOGICAL Hx Blood Disorders: No - INTEGUMENTARY Hx Dermatological Problems: No - MUSCULOSKELETAL/RHEUMATOLOGICAL Hx Musculoskeletal Disorders: Yes (arthritis, RT BKA, osetomylitis left heel) Hx Arthritis: Yes Hx Falls: Yes Hx Osteomyelitis: Yes - GASTROINTESTINAL Hx Gastrointestinal Disorders: Yes Hx Gastroesophageal Reflux: Yes Hx Nausea: Yes Hx Ulcer: Yes - GENITOURINARY/GYNECOLOGICAL Hx Genitourinary Disorders: Yes (incontinence) Hx Incontinence: Yes - PSYCHIATRIC Hx Psychophysiologic Disorder: Yes (anxiety) Hx Anxiety: Yes Hx Substance Use: No - SURGICAL HISTORY Hx Surgeries: Yes (RBKA) Hx Amputation: Yes - ANESTHESIA Hx Anesthesia: Yes Hx Anesthesia Reactions: No Hx Malignant Hyperthermia: No Has any member of the family had a problem w/ anesthesia?: No Meds Allergies/Adverse Reactions: Allergies Allergy/AdvReac Type Severity Reaction Status Date / Time acetaminophen [From Percocet] Allergy SWELLING Verified 06/09/18 16:17 oxycodone [From Percocet] Allergy SWELLING Verified 06/09/18 16:17 hydromorphone [From Dilaudid] AdvReac SHORTNESS Verified 06/09/18 16:17 OF BREATH - Medications Medications: Current Medications Apixaban (Eliquis) 5 mg PO Q12 [facility]; Protocol Last Admin: 06/10/18 08:54 Dose: 5 mg Aspirin (Aspirin Chewable) 81 mg PO DAILY [facility] Last Admin: 06/10/18 11:13 Dose: 81 mg Atorvastatin Calcium (Lipitor) 10 mg PO HS [facility] Donepezil HCl (Aricept) 10 mg PO DAILY [facility] Last Admin: 06/10/18 08:52 Dose: 10 mg Famotidine (Pepcid) 20 mg PO DAILY [facility] Last Admin: 06/10/18 17:00 Dose: 20 mg Gabapentin (Neurontin) 400 mg PO Q8H [facility] Last Admin: 06/10/18 16:53 Dose: 400 mg Home Med (Cyclosporine [Restasis]) 1 drop EACHEYE Q12 [facility] Sodium Chloride (Sodium Chloride 0.9%) 1,000 mls @ 100 mls/hr IV .Q10H [facility] Last Admin: 06/10/18 12:22 Dose: 100 mls/hr Insulin Detemir (Levemir) 20 units SC QAM [facility] Last Admin: 06/10/18 09:12 Dose: Not Given Insulin Detemir (Levemir) 30 units SC [facility] Insulin Human Lispro (Humalog) 0 units SC [facility]; Protocol Last Admin: 06/10/18 16:53 Dose: 1 units Lactobacillus Acidophilus (Bacid Acidophilus) 1 cap PO DAILY [facility] Last Admin: 06/10/18 11:13 Dose: 1 cap Losartan Potassium (Cozaar) 100 mg PO DAILY [facility] Last Admin: 06/10/18 08:51 Dose: 100 mg Mupirocin (Bactroban Cream) 1 applic TOP BID [facility] Last Admin: 06/10/18 16:55 Dose: Not Given Pantoprazole Sodium (Protonix Ec Tab) 40 mg PO DAILY [facility] Last Admin: 06/10/18 08:53 Dose: 40 mg Tramadol HCl (Ultram) 50 mg PO Q6 PRN PRN Reason: Other Last Admin: 06/10/18 08:46 Dose: 50 mg Physical Exam - Constitutional Appears: Well - Head Exam Head Exam: ATRAUMATIC, NORMAL INSPECTION, NORMOCEPHALIC - Eye Exam Eye Exam: EOMI, Normal appearance, PERRL - ENT Exam ENT Exam: Mucous Membranes Moist, Normal Exam - Neck Exam Neck exam: Positive for: Normal Inspection - Respiratory Exam Respiratory Exam: Clear to Auscultation Bilateral, NORMAL BREATHING PATTERN - Cardiovascular Exam Cardiovascular Exam: REGULAR RHYTHM - GI/Abdominal Exam GI & Abdominal Exam: Normal Bowel Sounds, Soft. absent: Tenderness - Rectal Exam Rectal Exam: Deferred - Extremities Exam Additional comments: right BKA, bilateral ulcers. - Neurological Exam Neurological exam: Alert, CN II-XII Intact, Oriented x3, Reflexes Normal Additional comments: Unable to ambulate (BKA and wheelchair bound), memory deficits noted, sensation is intact. No focal deficits noted. Results - Vital Signs Recent Vital Signs: Last Vital Signs Temp 98.4 F 06/10/18 16:00 Pulse 63 06/10/18 16:00 Resp 22 06/10/18 16:00 BP 149/77 06/10/18 16:00 Pulse Ox 100 06/10/18 18:01 - Labs Result Diagrams: 06/10/18 04:22 06/10/18 04:22 Labs: Laboratory Results - last 24 hr 06/09/18 06/09/18 06/09/18 15:35 17:14 18:34 WBC RBC Hgb Hct MCV MCH MCHC RDW Plt Count Sodium Potassium Chloride Carbon Dioxide Anion Gap BUN Creatinine Est GFR ( Amer) Est GFR (Non-Af Amer) POC Glucose (mg/dL) Random Glucose Hemoglobin A1c 6.5 Calcium Urine Color Urine Clarity Urine pH Ur Specific [place] Urine Protein Urine Glucose (UA) Urine Ketones Urine Blood Urine Nitrate Urine Bilirubin Urine Urobilinogen Ur Leukocyte Esterase Urine RBC (Auto) Urine Microscopic WBC Ur Squamous Epith Cells Urine Bacteria Urine Opiates Screen Negative Urine Methadone Screen Negative Ur Barbiturates Screen Negative Ur Phencyclidine Scrn Negative Ur Amphetamines Screen Negative U Benzodiazepines Scrn Negative U Oth Cocaine Metabols Negative U Cannabinoids Screen Negative Blood Type Confirm A POSITIVE 06/09/18 06/10/18 06/10/18 18:34 01:43 04:22 WBC 9.9 RBC 4.14 Hgb 11.6 L Hct 36.4 MCV 87.9 MCH 28.1 MCHC 31.9 L RDW 18.2 H Plt Count 262 Sodium Potassium Chloride Carbon Dioxide Anion Gap BUN Creatinine Est GFR ( Amer) Est GFR (Non-Af Amer) POC Glucose (mg/dL) 149 H Random Glucose Hemoglobin A1c Calcium Urine Color Yellow Urine Clarity Slighty-cloudy Urine pH 6.0 Ur Specific [place] 1.010 Urine Protein >=500 Urine Glucose (UA) 50 Urine Ketones Negative Urine Blood Small Urine Nitrate Negative Urine Bilirubin Negative Urine Urobilinogen 0.2-1.0 Ur Leukocyte Esterase Neg Urine RBC (Auto) 4 H Urine Microscopic WBC 1 Ur Squamous Epith Cells 6 H Urine Bacteria Rare Urine Opiates Screen Urine Methadone Screen Ur Barbiturates Screen Ur Phencyclidine Scrn Ur Amphetamines Screen U Benzodiazepines Scrn U Oth Cocaine Metabols U Cannabinoids Screen Blood Type Confirm 06/10/18 04:22 WBC RBC Hgb Hct MCV MCH MCHC RDW Plt Count Sodium 143 Potassium 3.7 Chloride 115 H Carbon Dioxide 22 Anion Gap 10 BUN 13 Creatinine 0.9 Est GFR ( Amer) > 60 Est GFR (Non-Af Amer) > 60 POC Glucose (mg/dL) Random Glucose 116 H Hemoglobin A1c Calcium 8.4 Urine Color Urine Clarity Urine pH Ur Specific [place] Urine Protein Urine Glucose (UA) Urine Ketones Urine Blood Urine Nitrate Urine Bilirubin Urine Urobilinogen Ur Leukocyte Esterase Urine RBC (Auto) Urine Microscopic WBC Ur Squamous Epith Cells Urine Bacteria Urine Opiates Screen Urine Methadone Screen Ur Barbiturates Screen Ur Phencyclidine Scrn Ur Amphetamines Screen U Benzodiazepines Scrn U Oth Cocaine Metabols U Cannabinoids Screen Blood Type Confirm Assessment & Plan (1) Syncope Assessment and Plan: Likely due to bradycardia as the patient's heart rate had dropped to 37 earlier with heart block. Will defer to cardiology. Status: Acute (2) Altered mental status Assessment and Plan: Likely due to toxic-metabolic causes based on infections and history of DM, etc. Currently she is at baseline. No further neurological recommendations at this time. Thank you for this consultation. Status: Acute
[2018-06-10] MEDS: Cefepime 1 GM in Sodium Chloride 0.9% 100 ML IVPB SCH (22:06)
[2018-06-10] MEDS: Patient's Own Med (Cyclosporine [Restasis] 1 DROP) EACHEYE SCH (22:07)
--- NOTE | 2018-06-11 02:17 | HP ---
HISTORY OF PRESENT ILLNESS: This is a 62-year-old female with history of multiple medical problems including type 2 diabetes mellitus, peripheral vascular disease, status post right BKA, and left foot ulcer. The patient is currently on IV antibiotics, treating right foot ulcer infection and diabetic foot. On the day of admission, the patient has pressed the alert system after a fall. The patient does not recall if she lost consciousness or not. Ambulance came and they entered through the door, and found the patient in the floor. The patient was brought to emergency room for evaluation and admitted for further management. Overnight, the patient had high-grade AV block and beta-alexa was stopped and electrophysiology consult was called. Other review of systems is negative. ALLERGIES: POSITIVE FOR ACETAMINOPHEN, OXYCODONE, AND HYDROMORPHONE. PAST MEDICAL HISTORY: As above. SOCIAL HISTORY: No history of smoking, EtOH, or substance abuse. FAMILY HISTORY: Noncontributory. PHYSICAL EXAMINATION: GENERAL: The patient is in bed, not in any cardiopulmonary distress. VITAL SIGNS: Blood pressure 159/86, temperature 98.6, respiratory rate 20, and pulse 63. HEENT: Pupils equal and reactive to light. Normal appearing mucosa of the conjunctivae, oropharynx, and nasal membrane mucosa. NECK: Supple. No JVD. No carotid bruit. No lymph node. No thyromegaly. CHEST AND LUNGS: Bilateral symmetrical expansion. Good air exchange. No rales, no rhonchi. CARDIOVASCULAR SYSTEM: PMI not localized. S1, S2. No additional sounds. ABDOMEN: Normoactive bowel sounds. No tenderness. No organomegaly. No masses. EXTREMITIES: No cyanosis, no clubbing. There is a left foot ulcer, status post right below-knee amputation. PIPE JEEPER: Alert, awake, oriented x3; and moves all extremities equally. ASSESSMENT: Fall with undetermined etiology, possible syncope; type 2 diabetes mellitus; diabetic neuropathy; peripheral vascular disease, status post right below knee amputation; diabetic foot, currently on intravenous antibiotics. PLAN: Continue the IV antibiotics and cardiology consult and follow recommendations. Resume the patient's home medications including the anticoagulant. Continue IV antibiotics. Cyndie Orellana MD [facility] # [id number]
[2018-06-11 06:01] LABS: BLOOD UREA NITROGEN 13 mg/dl (7-17); CALCIUM 8.3 mg/dL (8.4-10.2); GFR NON-AFRICAN AMERICAN 56
[2018-06-11] MEDS ORDERED: Potassium Chloride 20 mEq ER Tab PO ONE (07:22)
[2018-06-11] MEDS: Insulin Lispro (humaLOG) 100 Units/ml Inj SC SCH ×4 (08:26→22:00)
[2018-06-11] MEDS: Sodium Chloride 0.9% 1,000 ML IV SCH ×2 (08:28→19:01)
[2018-06-11] MEDS: Insulin Detemir 100 Units/ml Inj SC SCH ×3 (08:34→21:40)
[2018-06-11] MEDS: Patient's Own Med (Cyclosporine [Restasis] 1 DROP) EACHEYE SCH ×2 (08:37→21:40)
[2018-06-11] MEDS: Lactobacillus Acidophilus 500 MU Cap PO SCH (08:37)
[2018-06-11] MEDS: Cefepime 1 GM in Sodium Chloride 0.9% 100 ML IVPB SCH ×2 (09:00→20:40)
[2018-06-11 10:42] LABS: HEMOGLOBIN 10.9 g/dL (12.0-16.0); MEAN CELL VOLUME 87.4 fl (81.0-99.0); RBC 3.82 Mil/uL (3.80-5.20); WHITE BLOOD COUNT 8.4 K/uL (4.8-10.8)
[2018-06-11 10:43] LABS: MEAN CORPUSCULAR HEMOGLOBIN 28.6 pg (27.0-31.0); MEAN CORPUSCULAR HGB CONC 32.7 g/dL (33.0-37.0); RED CELL DISTRIBUTION WIDTH 17.9 % (11.5-14.5)
[2018-06-11] MEDS: Mupirocin 2% Cream TOP SCH (11:12)
--- NOTE | 2018-06-11 12:34 | CP.PCM.PN ---
Subjective - Date & Time of Evaluation Date of Evaluation: 06/11/18 Time of Evaluation: 12:27 - Subjective Subjective: Podiatry progress note for Dr. Houston 62 y/o F patient seen and evaluated at the bedside for left heel ulcer. Patient still confused but her level of consciousness is better than yesterday. Patient states that she has pain in her left leg. Patient denies any pain in her heel ulceration. Patient denies any other pedal complaint at this time.. Patient is currently on 6 weeks of IV ABx for her left foot acute OM and has a PICC line. Patient denies any overnight N/V/F/C or SOB. Objective - Vital Signs/Intake and Output Vital Signs (last 24 hours): Temp Pulse Resp BP Pulse Ox 97.7 F 63 14 171/69 H 100 06/11/18 08:00 06/11/18 08:38 06/11/18 08:00 06/11/18 08:38 06/11/18 08:00 Intake and Output: 06/11/18 06/11/18 06:59 18:59 Intake Total 1200 300 Output Total 900 500 Balance 300 -200 - Medications Medications: Current Medications Apixaban (Eliquis) 5 mg PO Q12 [facility]; Protocol Last Admin: 06/11/18 08:39 Dose: 5 mg Aspirin (Aspirin Chewable) 81 mg PO DAILY [facility] Last Admin: 06/11/18 08:33 Dose: 81 mg Atorvastatin Calcium (Lipitor) 10 mg PO HS [facility] Last Admin: 06/10/18 23:08 Dose: 10 mg Clotrimazole (Lotrimin Af 1%) 1 applic TOP BID [facility] Last Admin: 06/11/18 08:34 Dose: 1 applic Donepezil HCl (Aricept) 10 mg PO DAILY [facility] Last Admin: 06/11/18 08:33 Dose: 10 mg Famotidine (Pepcid) 20 mg PO DAILY [facility] Last Admin: 06/11/18 08:36 Dose: 20 mg Gabapentin (Neurontin) 400 mg PO Q8H [facility] Last Admin: 06/11/18 08:36 Dose: 400 mg Home Med (Cyclosporine [Restasis]) 1 drop EACHEYE Q12 [facility] Last Admin: 06/11/18 08:37 Dose: 1 drop Sodium Chloride (Sodium Chloride 0.9%) 1,000 mls @ 100 mls/hr IV .Q10H [facility] Last Admin: 06/11/18 08:28 Dose: 100 mls/hr Cefepime HCl 1 gm/ Sodium (Chloride) 100 mls @ 100 mls/hr IVPB Q12 [facility]; Protocol Last Admin: 06/11/18 09:00 Dose: 100 mls/hr Insulin Detemir (Levemir) 20 units SC QAM [facility] Last Admin: 06/11/18 09:02 Dose: 20 units Insulin Detemir (Levemir) 30 units SC HS [facility] Last Admin: 06/10/18 23:10 Dose: 30 units Insulin Human Lispro (Humalog) 0 units SC ACHS [facility]; Protocol Last Admin: 06/11/18 11:47 Dose: Not Given Lactobacillus Acidophilus (Bacid Acidophilus) 1 cap PO DAILY [facility] Last Admin: 06/11/18 08:37 Dose: 1 cap Losartan Potassium (Cozaar) 100 mg PO DAILY [facility] Last Admin: 06/11/18 08:38 Dose: 100 mg Mupirocin (Bactroban Cream) 1 applic TOP BID [facility] Last Admin: 06/11/18 11:12 Dose: Not Given Tramadol HCl (Ultram) 50 mg PO Q6 PRN PRN Reason: Other Last Admin: 06/11/18 11:15 Dose: 50 mg - Labs Labs: 06/11/18 04:25 06/11/18 04:25 PT 17.2 Seconds (9.8-13.1) H 06/09/18 15:35 INR 1.5 06/09/18 15:35 APTT 36.4 Seconds (25.6-37.1) 06/09/18 15:35 - Constitutional Appears: Well, Non-toxic, No Acute Distress - Head Exam Head Exam: ATRAUMATIC, NORMOCEPHALIC - Extremities Exam Additional comments: Left LE focused exam, R LE BKA Vasc: DP/PT pulses faintly palpable 1/4. Temp gradient warm to cool from proximal to distal. Cap refill < 3 seconds to all digits. No edema or erythema noted. Neuro: Protective sensation grossly diminished. Derm: Approximatly 3 cm x 2 cm X0.2 cm Oval ulceration noted to plantar/po sterior left heel. Wound have fibrous and granular base 70:30.Positive probe to bone. no malodor. No drainage. No tracking, tunneling or undermining appreciated. No erythema MSK: Rigid contractures of all digits 1-5. Limited ROM at all major joints and diffuse arthritic changes. Muscle power 5/5 in all groups. No pain on palpating the abby-ulcerative area. - Neurological Exam Neurological Exam: Alert, Awake Assessment and Plan - Assessment and Plan (Free Text) Assessment: 62 y/o F patient seen and evaluated for an ulcer of the L heel Plan: Patient seen and evaluated at the bedside. Plan discussed with Dr. Houston Charts, Labs and vitals reviewed: Afebrile, WBC 8.4 LE MRI (05/02): possible early acute and or developing acute osteomyelitis with possible underlying cellulitis Multipodus boot to be worn at all times while in bed Wound dressed with bactroban, DSD No plan for surgical intervention at this time. According her ty doctor chart the caus of her confusion might be a metabolic cause. Her CT didn't show signs suggestive of recent stroke. Patient might be discharged soon from the hospital. Patient to follow up with Dr. Houston in his office center upon discharge. Podiatry will continue to follow while patient in house.
--- NOTE | 2018-06-11 19:03 | PN ---
DATE: 06/11/2018 SUBJECTIVE: The patient denies any dizziness, no reported bradycardia and denies chest pain. PHYSICAL EXAMINATION: VITAL SIGNS: Blood pressure 171/69, heart rate 63, temperature 97.7, and respiration 14. HEENT: Normocephalic. CHEST: Clear. HEART: S1 and S2 regular. EXTREMITIES: Right below-knee amputation and dressing is applied today. Left heel ulcer. LABORATORY DATA: Hemoglobin and hematocrit 10.9 and 33.4. White count and platelet count are within normal limits. SMA-7: Sodium 140, potassium 3.4, chloride 115, CO2 of 22, glucose 136, BUN 13, creatinine 1. Blood culture is negative after 24 hours. Echocardiographic study revealed no normal ejection fraction, grade 1 abnormal relaxation pattern and mildly elevated left atrium. ASSESSMENT: 1. bradycardia. 2. Status post syncopal episode. 3. Peripheral vascular disease, status post right below-knee amputation. 4. Left heel cellulitis and osteomyelitis. 5. Uncontrolled diabetes. 6. History of deep vein thrombosis. RECOMMENDATIONS: Continue Aricept mg once day, aspirin 81 mg once a day, IV cefepime at 1 g every 12 hours, Cozaar 100 mg once a day, Eliquis at 5 mg twice a day, Lipitor 80 mg once a day. The patient did receive K-Dur 20 mEq as a single dose today for her hypokalemia and we will follow up with the electrophysiology evaluation by Dr. Miller. Tommy Willett MD
--- NOTE | 2018-06-11 21:36 | CARD ---
APPROVED REPORT Date of service: 06/09/2018 EKG Measurement Heart [id number] <Conclusion> Sinus rhythm with 1st degree AV block Otherwise normal ECG
--- NOTE | 2018-06-12 02:33 | CON ---
DATE: 06/11/2018 INPATIENT ELECTROPHYSIOLOGY CONSULTATION REFERRING PHYSICIAN: Tommy Willett MD REASON FOR EVALUATION: 1. Heart block. 2. Bradycardia. 3. Fall. Thank you very much for this consult. HISTORY OF PRESENT ILLNESS: Mrs. Barbara Mcnair is a very pleasant 62-year-old female with past medical history significant for diabetes; diabetic neuropathy; severe peripheral vascular disease, status post right [id number] amputation last year; left heel ulcer, on IV antibiotics at home, who was brought in after she "collapsed" at home trying to go to a sofa near the kitchen. The patient did not sustain any injuries. She was subsequently brought to [facility] for further evaluation and management. The patient was noted to have episodic heart rates in the 40s as a result of what is documented as 2:1 heart block. The patient does have a history of dementia. Therefore, available history is limited. She denies any dizziness, lightheadedness, or syncope. PAST MEDICAL HISTORY: As mentioned in the history of present illness. PAST SURGICAL HISTORY: As mentioned in the history of present illness. SOCIAL HISTORY: The patient is a nonsmoker and lives with her sister. MEDICATIONS: At the time of admission include, Aricept 10 mg p.o. daily, aspirin 81 mg p.o. daily, Cozaar 100 mg p.o. b.i.d., Eliquis 5 mg twice a day, Lipitor 10 mg p.o. daily, Pepcid 20 mg p.o. daily. REVIEW OF SYSTEMS: Pertinent positives as I had mentioned in the history of present illness. PHYSICAL EXAMINATION: GENERAL: The patient is a middle-aged female in no acute distress, able to speak in complete sentences, did not appear significantly altered at this time. VITAL SIGNS: As follows, temperature is 98.3, pulse is 65, blood pressure is 148/72, this is last evening. This morning, pulse is 63, blood pressure is 171/69. HEENT: Head is normocephalic, atraumatic. There is no dennis facial asymmetry. Mucous membranes appear moist. She does have some degree of loss of visual acuity. NECK: Supple. No jugular venous distention. CHEST: Clear to auscultation bilaterally. CARDIOVASCULAR: Regular rate and rhythm. S1, S2. No S3 or S4. ABDOMEN: Soft, nontender, nondistended. Positive for bowel sounds. LABORATORY DATA: On review of relevant lab work, the patient has a white count of 8.4, H and H of 10.9 and 33.4, platelets of 227. Potassium is somewhat low at 3.4, BUN and creatinine are 13 and 1, calcium is 8.3. Review of echocardiogram shows left ventricle of normal size, normal wall thickness, ejection fraction was 60% to 65%. No evidence of thrombus. RV is also of normal size and function. Atrium on the left side appears mildly dilated, right atrium is within normal limits. Pulmonic valve is normal in structure. Aortic valve also appears to be normal. Pericardial effusion is not noted. Study overall is technically limited in terms of image quality. On review of telemetry, the patient currently is in normal sinus rhythm without any significant disturbance. Telemetry strips from 06/09/2018 at 11:23 p.m. did show initially periods of 2:1 block, which is more consistent with Wenckebach physiology with fixed conduction of conducted waves. There is also some degree of sinus slowing indicative of increased vagus tone as well. ASSESSMENT AND PLAN: 1. Heart block which appeared to be transient in the setting of beta-alexa therapy. Beta-blockers have been held. There has been no recurrence of heart block, 2:1 conduction was less consistent with infranodal conduction issues than more atrioventricular floridalma conduction issues. At this point, the patient has poor functional status. If there is recurrence of bradycardia with related symptoms, the patient may be a candidate for further evaluation, management, and possible permanent pacemaker implantation. At this point, there has been no evidence of such episodes. 2. Bradycardia which at this point may have caused some of her unclear symptoms. At this point, the patient appears to be asymptomatic. 3. Status post falls, unclear if this represents any change in mentation or rather secondary to her overall condition/neuropathy. 4. Hypokalemia which should be replaced if potassium greater than 4. Thank you for allowing me to participate in the care of your patient. Please do not hesitate to call if you have any questions in regards to her care or if there is any significant recurrent symptomatic bradycardia. Hoang Miller MD [facility] # [id number]
[2018-06-12 05:55] LABS: BASO # 0.1 K/uL (0.0-0.2); BASO % 0.7 % (0.0-2.0); EOS # 0.5 K/uL (0.0-0.7); EOS % 5.5 % (0.0-4.0); HEMOGLOBIN 11.3 g/dL (12.0-16.0); LYMPH # 2.2 K/uL (1.0-4.3); LYMPH % 25.8 % (20.0-40.0); MEAN CELL VOLUME 87.1 fl (81.0-99.0); MEAN CORPUSCULAR HGB CONC 32.2 g/dL (33.0-37.0); MEAN PLATELET VOLUME 11.5 fl (7.2-11.7); MONO # 0.5 K/uL (0.0-0.8); MONO % 5.4 % (0.0-10.0); NEUT # 5.4 K/uL (1.8-7.0); NEUT % 62.6 % (50.0-75.0); NRBC % 0.1 % (0.0-0.0); RBC 4.05 Mil/uL (3.80-5.20); RED CELL DISTRIBUTION WIDTH 17.8 % (11.5-14.5); WHITE BLOOD COUNT 8.6 K/uL (4.8-10.8)
--- NOTE | 2018-06-12 06:09 | CP.PCM.PN ---
Subjective - Date & Time of Evaluation Date of Evaluation: 06/12/18 Time of Evaluation: 10:49 - Subjective Subjective: Podiatry progress note for Dr. Houston 62 y/o F patient seen and evaluated at the bedside for left heel ulcer. Patient still confused but her level of consciousness is better than yesterday. Patient states that her pain in the left leg is worse today. She states that she has headache today. Patient denies any pain in her heel ulceration. Patient denies any other pedal complaint at this time.. Patient is currently on 6 weeks of IV ABx for her left foot acute OM and has a PICC line. Patient denies any overnight N/V/F/C or SOB. Objective - Vital Signs/Intake and Output Vital Signs (last 24 hours): Temp Pulse Resp BP Pulse Ox 98.4 F 64 17 149/67 100 06/12/18 01:00 06/12/18 01:00 06/12/18 01:00 06/12/18 01:00 06/12/18 01:00 Intake and Output: 06/11/18 06/12/18 18:59 06:59 Intake Total 690 500 Output Total 1350 950 Balance -660 -450 - Medications Medications: Current Medications Apixaban (Eliquis) 5 mg PO Q12 [facility]; Protocol Last Admin: 06/11/18 21:40 Dose: 5 mg Aspirin (Aspirin Chewable) 81 mg PO DAILY [facility] Last Admin: 06/11/18 08:33 Dose: 81 mg Atorvastatin Calcium (Lipitor) 10 mg PO HS [facility] Last Admin: 06/11/18 21:40 Dose: 10 mg Clotrimazole (Lotrimin Af 1%) 1 applic TOP BID [facility] Last Admin: 06/11/18 16:31 Dose: 1 applic Donepezil HCl (Aricept) 10 mg PO DAILY [facility] Last Admin: 06/11/18 08:33 Dose: 10 mg Famotidine (Pepcid) 20 mg PO DAILY [facility] Last Admin: 06/11/18 08:36 Dose: 20 mg Gabapentin (Neurontin) 400 mg PO Q8H [facility] Last Admin: 06/12/18 01:48 Dose: 400 mg Home Med (Cyclosporine [Restasis]) 1 drop EACHEYE Q12 [facility] Last Admin: 06/11/18 21:40 Dose: 1 drop Sodium Chloride (Sodium Chloride 0.9%) 1,000 mls @ 100 mls/hr IV .Q10H [facility] Last Admin: 06/11/18 19:01 Dose: 100 mls/hr Cefepime HCl 1 gm/ Sodium (Chloride) 100 mls @ 100 mls/hr IVPB Q12 [facility]; Protocol Last Admin: 06/11/18 20:40 Dose: 100 mls/hr Insulin Detemir (Levemir) 20 units SC QAM [facility] Last Admin: 06/11/18 09:02 Dose: 20 units Insulin Detemir (Levemir) 30 units SC HS [facility] Last Admin: 06/11/18 21:40 Dose: 30 units Insulin Human Lispro (Humalog) 0 units SC ACHS [facility]; Protocol Last Admin: 06/11/18 22:00 Dose: Not Given Lactobacillus Acidophilus (Bacid Acidophilus) 1 cap PO DAILY [facility] Last Admin: 06/11/18 08:37 Dose: 1 cap Losartan Potassium (Cozaar) 100 mg PO DAILY [facility] Last Admin: 06/11/18 08:38 Dose: 100 mg Mupirocin (Bactroban Cream) 1 applic TOP BID [facility] Last Admin: 06/11/18 11:12 Dose: Not Given Mupirocin (Bactroban Ointment) 1 applic TOP BID [facility] Stop: 06/14/18 09:01 Last Admin: 06/11/18 20:43 Dose: 1 applic Tramadol HCl (Ultram) 50 mg PO Q6 PRN PRN Reason: Other Last Admin: 06/11/18 23:45 Dose: 50 mg - Labs Labs: 06/12/18 04:20 06/11/18 04:25 PT 17.2 Seconds (9.8-13.1) H 06/09/18 15:35 INR 1.5 06/09/18 15:35 APTT 36.4 Seconds (25.6-37.1) 06/09/18 15:35 - Constitutional Appears: Well, Non-toxic, No Acute Distress - Head Exam Head Exam: ATRAUMATIC, NORMOCEPHALIC - Extremities Exam Additional comments: Left LE focused exam, R LE BKA Vasc: DP/PT pulses faintly palpable 1/4. Temp gradient warm to cool from proximal to distal. Cap refill < 3 seconds to all digits. No edema or erythema noted. Neuro: Protective sensation grossly diminished. Derm: Approximatly 3 cm x 2 cm X0.2 cm Oval ulceration noted to plantar/post erior left heel. Wound have fibrous and granular base 70:30.Positive probe to bone. no malodor. No drainage. No tracking, tunneling or undermining appreciated. No erythema MSK: Rigid contractures of all digits 1-5. Limited ROM at all major joints and diffuse arthritic changes. Muscle power 5/5 in all groups. No pain on palpating the abby-ulcerative area. - Neurological Exam Neurological Exam: Alert, Awake Assessment and Plan - Assessment and Plan (Free Text) Assessment: 62 y/o F patient seen and evaluated for an ulcer of the L heel Plan: Patient seen and evaluated at the bedside with Dr. Houston. Plan discussed with Dr. Houston Charts, Labs and vitals reviewed: Afebrile, WBC 8.6 LE MRI (05/02): possible early acute and or developing acute osteomyelitis with possible underlying cellulitis Multipodus boot to be worn at all times while in bed Wound dressed with bactroban, DSD No plan for surgical intervention at this time. According her ty doctor chart the caus of her confusion might be a metabolic cause. Her CT didn't show signs suggestive of recent stroke. Orderd Vascular consult. Orderd Morphine 2 mg IV Q4 PRN Patient to follow up with Dr. Houston in his office center upon discharge. Podiatry will continue to follow while patient in house.
[2018-06-12 06:19] LABS: BLOOD UREA NITROGEN 11 mg/dl (7-17); CALCIUM 8.6 mg/dL (8.4-10.2); GFR NON-AFRICAN AMERICAN > 60
[2018-06-12] MEDS: Sodium Chloride 0.9% 1,000 ML IV SCH (06:21)
[2018-06-12] MEDS: Insulin Lispro (humaLOG) 100 Units/ml Inj SC SCH ×4 (06:52→21:13)
--- NOTE | 2018-06-12 07:51 | PN ---
DATE: 06/11/2018 SUBJECTIVE: The patient is seen today on 06/11/2018. She is not in any cardiopulmonary distress. PHYSICAL EXAMINATION: VITAL SIGNS: Blood pressure 144/69, temperature 97.7, respiratory rate 14, and pulse 16. HEENT: Pupils equal and reactive to light. Normoactive mucosa of the conjunctivae, oropharyngeal and nasal membrane mucosa. NECK: Supple. No JVD. No carotid bruit. No lymph node. No thyromegaly. CHEST AND LUNGS: Bilateral symmetrical expansion. Quick air exchange. No rales. No rhonchi. CARDIOVASCULAR SYSTEM: PMI not localized. S1 and S2. No additional sounds. ABDOMEN: Normoactive bowel sounds. No tenderness. No organomegaly. No masses. EXTREMITIES: Right BKA and left foot ulcer. [employer] OPERATOR: Alert, awake, and oriented x2. No neurological deficit could be appreciated. ASSESSMENT: 1. Status post fall with paroxysmal syncope. 2. Hypertension. 3. Type 2 diabetes mellitus. 4. Bradycardia likely secondary to beta blockers. PLAN: Beta blockers were stopped by Cardiology, and we are still monitoring the patient on telemetry, and continue IV antibiotics, treating diabetic foot. Cyndie Orellana MD
[2018-06-12] MEDS: Cefepime 1 GM in Sodium Chloride 0.9% 100 ML IVPB SCH ×2 (09:51→21:25)
[2018-06-12] MEDS: Patient's Own Med (Cyclosporine [Restasis] 1 DROP) EACHEYE SCH ×2 (09:51→21:26)
[2018-06-12] MEDS: Lactobacillus Acidophilus 500 MU Cap PO SCH (09:56)
--- NOTE | 2018-06-12 10:03 | CP.PCM.PN ---
Subjective - Date & Time of Evaluation Date of Evaluation: 06/12/18 Time of Evaluation: 10:03 - Subjective Subjective: ID Note- Pt. seen and examined today. pt. awake and answers all questions. She denies any fever or chills. states her itching from her intertrigo rashes have improved. no diarrhea as per nurse. she also denies any pain at her right arm pic line now . Objective - Vital Signs/Intake and Output Vital Signs (last 24 hours): Temp Pulse Resp BP Pulse Ox 98 F 68 15 147/77 100 06/12/18 05:00 06/12/18 09:47 06/12/18 05:00 06/12/18 09:47 06/12/18 05:00 Intake and Output: 06/12/18 06/12/18 06:59 18:59 Intake Total 1100 Output Total 1425 Balance -325 - Medications Medications: Current Medications Apixaban (Eliquis) 5 mg PO Q12 [facility]; Protocol Last Admin: 06/12/18 09:50 Dose: 5 mg Aspirin (Aspirin Chewable) 81 mg PO DAILY [facility] Last Admin: 06/12/18 09:51 Dose: 81 mg Atorvastatin Calcium (Lipitor) 10 mg PO HS [facility] Last Admin: 06/11/18 21:40 Dose: 10 mg Clotrimazole (Lotrimin Af 1%) 1 applic TOP BID [facility] Last Admin: 06/11/18 16:31 Dose: 1 applic Donepezil HCl (Aricept) 10 mg PO DAILY [facility] Last Admin: 06/12/18 09:50 Dose: 10 mg Famotidine (Pepcid) 20 mg PO DAILY [facility] Last Admin: 06/12/18 09:47 Dose: 20 mg Gabapentin (Neurontin) 400 mg PO Q8H [facility] Last Admin: 06/12/18 09:50 Dose: 400 mg Home Med (Cyclosporine [Restasis]) 1 drop EACHEYE Q12 [facility] Last Admin: 06/12/18 09:51 Dose: 1 drop Sodium Chloride (Sodium Chloride 0.9%) 1,000 mls @ 100 mls/hr IV .Q10H [facility] Last Admin: 06/12/18 06:21 Dose: 100 mls/hr Cefepime HCl 1 gm/ Sodium (Chloride) 100 mls @ 100 mls/hr IVPB Q12 [facility]; Protocol Last Admin: 06/12/18 09:51 Dose: 100 mls/hr Insulin Detemir (Levemir) 20 units SC QAM [facility] Last Admin: 06/11/18 09:02 Dose: 20 units Insulin Detemir (Levemir) 30 units SC HS [facility] Last Admin: 06/11/18 21:40 Dose: 30 units Insulin Human Lispro (Humalog) 0 units SC ACHS [facility]; Protocol Last Admin: 06/12/18 06:52 Dose: Not Given Lactobacillus Acidophilus (Bacid Acidophilus) 1 cap PO DAILY [facility] Last Admin: 06/11/18 08:37 Dose: 1 cap Losartan Potassium (Cozaar) 100 mg PO DAILY [facility] Last Admin: 06/12/18 09:47 Dose: 100 mg Mupirocin (Bactroban Cream) 1 applic TOP BID [facility] Last Admin: 06/11/18 11:12 Dose: Not Given Mupirocin (Bactroban Ointment) 1 applic TOP BID [facility] Stop: 06/14/18 09:01 Last Admin: 06/12/18 09:49 Dose: 1 applic Tramadol HCl (Ultram) 50 mg PO Q6 PRN PRN Reason: Other Last Admin: 06/12/18 09:43 Dose: 50 mg - Labs Labs: - Additional Findings Additional findings: - Constitutional Appears: No Acute Distress - Head Exam Head Exam: ATRAUMATIC - ENT Exam ENT Exam: Normal Oropharynx - Neck Exam Neck exam: Positive for: Full Rom - Respiratory Exam Respiratory Exam: Clear to Auscultation Bilateral, NORMAL BREATHING PATTERN - Cardiovascular Exam Cardiovascular Exam: RRR, +S1, +S2 - GI/Abdominal Exam GI & Abdominal Exam: Normal Bowel Sounds, Soft Additional comments: NT, ND - Extremities Exam Additional comments: Right BKA site clean/dry/Intact left heel about 4 x 6 cm wound without any malodor, minimal clear/discharge no surrounding erythema - Neurological Exam Neurological exam: Alert, Oriented x3 - Skin Additional comments: fungal rash under b/l breast and b/l groin region and b/l gluteus region and b/l axilla extensive but less indurated now and much less pruritic as per pt. (intertrigo) - Additional Findings Additional findings: Lines- right aarm PICC line without any tenderness, no swelling, erythema much less and as per nurse seemed like rash from the tape and is less now. Laboratory Results - last 72 hr 06/09/18 06/09/18 06/09/18 15:05 15:20 15:35 WBC 11.5 H RBC 4.41 Hgb 12.5 Hct 38.8 MCV 88.1 MCH 28.3 MCHC 32.1 L RDW 18.2 H Plt Count 286 MPV 11.3 Neut % (Auto) 69.3 Lymph % (Auto) 19.4 L Toombs % (Auto) 6.1 Eos % (Auto) 4.6 H Baso % (Auto) 0.6 Neut # (Auto) 8.0 H Lymph # (Auto) 2.2 Toombs # (Auto) 0.7 Eos # (Auto) 0.5 Baso # (Auto) 0.1 ESR PT INR APTT pO2 39 VBG pH 7.30 L VBG pCO2 45 VBG HCO3 20.7 VBG Total CO2 23.5 VBG O2 Sat (Calc) 77.1 H VBG Base Excess -4.4 L VBG Potassium 3.8 Sodium 138.0 Chloride 109.0 H Glucose 144 H Lactate 1.7 FiO2 21.0 Potassium Carbon Dioxide Anion Gap BUN Creatinine Est GFR ( Amer) Est GFR (Non-Af Amer) POC Glucose (mg/dL) Random Glucose Hemoglobin A1c Calcium Phosphorus Magnesium Total Bilirubin AST ALT Alkaline Phosphatase Troponin I Total Protein Albumin Globulin Albumin/Globulin Ratio Triglycerides Cholesterol LDL Cholesterol Direct HDL Cholesterol TSH 3rd Generation Venous Blood Potassium 3.8 Urine Color Urine Clarity Urine pH Ur Specific Brea Urine Protein Urine Glucose (UA) Urine Ketones Urine Blood Urine Nitrate Urine Bilirubin Urine Urobilinogen Ur Leukocyte Esterase Urine RBC (Auto) Urine Microscopic WBC Ur Squamous Epith Cells Urine Bacteria Urine Opiates Screen Urine Methadone Screen Ur Barbiturates Screen Ur Phencyclidine Scrn Ur Amphetamines Screen U Benzodiazepines Scrn U Oth Cocaine Metabols U Cannabinoids Screen Alcohol, Quantitative Blood Type A POSITIVE Blood Type Confirm Antibody Screen Negative BBK History Checked No verified bt 06/09/18 06/09/18 06/09/18 15:35 15:35 15:35 WBC RBC Hgb Hct MCV MCH MCHC RDW Plt Count MPV Neut % (Auto) Lymph % (Auto) Toombs % (Auto) Eos % (Auto) Baso % (Auto) Neut # (Auto) Lymph # (Auto) [place]ombs # (Auto) Eos # (Auto) Baso # (Auto) ESR PT 17.2 H INR 1.5 APTT 36.4 pO2 VBG pH VBG pCO2 VBG HCO3 VBG Total CO2 VBG O2 Sat (Calc) VBG Base Excess VBG Potassium Sodium 142 Chloride 113 H Glucose Lactate FiO2 Potassium 3.8 Carbon Dioxide 21 L Anion Gap 12 BUN 16 Creatinine 1.0 Est GFR ( Amer) > 60 Est GFR (Non-Af Amer) 56 POC Glucose (mg/dL) Random Glucose 134 H Hemoglobin A1c 6.5 Calcium 9.0 Phosphorus 3.0 Magnesium 1.9 Total Bilirubin 0.2 AST 18 ALT 24 Alkaline Phosphatase 117 Troponin I 0.0120 Total Protein 7.0 Albumin 3.1 L Globulin 3.9 Albumin/Globulin Ratio 0.8 L Triglycerides 199 H Cholesterol 115 LDL Cholesterol Direct 45 HDL Cholesterol 31 TSH 3rd Generation 0.74 Venous Blood Potassium Urine Color Urine Clarity Urine pH Ur Specific Brea Urine Protein Urine Glucose (UA) Urine Ketones Urine Blood Urine Nitrate Urine Bilirubin Urine Urobilinogen Ur Leukocyte Esterase Urine RBC (Auto) Urine Microscopic WBC Ur Squamous Epith Cells Urine Bacteria Urine Opiates Screen Urine Methadone Screen Ur Barbiturates Screen Ur Phencyclidine Scrn Ur Amphetamines Screen U Benzodiazepines Scrn U Oth Cocaine Metabols U Cannabinoids Screen Alcohol, Quantitative < 10 Blood Type Blood Type Confirm Antibody Screen BBK History Checked 06/09/18 06/09/18 06/09/18 17:14 18:34 18:34 WBC RBC Hgb Hct MCV MCH MCHC RDW Plt Count MPV Neut % (Auto) Lymph % (Auto) [place]ombs % (Auto) Eos % (Auto) Baso % (Auto) Neut # (Auto) Lymph # (Auto) [place]ombs # (Auto) Eos # (Auto) Baso # (Auto) ESR PT INR APTT pO2 VBG pH VBG pCO2 VBG HCO3 VBG Total CO2 VBG O2 Sat (Calc) VBG Base Excess VBG Potassium Sodium Chloride Glucose Lactate FiO2 Potassium Carbon Dioxide Anion Gap BUN Creatinine Est GFR ( Amer) Est GFR (Non-Af Amer) POC Glucose (mg/dL) Random Glucose Hemoglobin A1c Calcium Phosphorus Magnesium Total Bilirubin AST ALT Alkaline Phosphatase Troponin I Total Protein Albumin Globulin Albumin/Globulin Ratio Triglycerides Cholesterol LDL Cholesterol Direct HDL Cholesterol TSH 3rd Generation Venous Blood Potassium Urine Color Yellow Urine Clarity Slighty-cloudy Urine pH 6.0 Ur Specific Brea 1.010 Urine Protein >=500 Urine Glucose (UA) 50 Urine Ketones Negative Urine Blood Small Urine Nitrate Negative Urine Bilirubin Negative Urine Urobilinogen 0.2-1.0 Ur Leukocyte Esterase Neg Urine RBC (Auto) 4 H Urine Microscopic WBC 1 Ur Squamous Epith Cells 6 H Urine Bacteria Rare Urine Opiates Screen Negative Urine Methadone Screen Negative Ur Barbiturates Screen Negative Ur Phencyclidine Scrn Negative Ur Amphetamines Screen Negative U Benzodiazepines Scrn Negative U Oth Cocaine Metabols Negative U Cannabinoids Screen Negative Alcohol, Quantitative Blood Type Blood Type Confirm A POSITIVE Antibody Screen BBK History Checked 06/10/18 06/10/18 06/10/18 01:43 04:22 04:22 WBC 9.9 RBC 4.14 Hgb 11.6 L Hct 36.4 MCV 87.9 MCH 28.1 MCHC 31.9 L RDW 18.2 H Plt Count 262 MPV Neut % (Auto) Lymph % (Auto) [place]ombs % (Auto) Eos % (Auto) Baso % (Auto) Neut # (Auto) Lymph # (Auto) [place]ombs # (Auto) Eos # (Auto) Baso # (Auto) ESR PT INR APTT pO2 VBG pH VBG pCO2 VBG HCO3 VBG Total CO2 VBG O2 Sat (Calc) VBG Base Excess VBG Potassium Sodium 143 Chloride 115 H Glucose Lactate FiO2 Potassium 3.7 Carbon Dioxide 22 Anion Gap 10 BUN 13 Creatinine 0.9 Est GFR ( Amer) > 60 Est GFR (Non-Af Amer) > 60 POC Glucose (mg/dL) 149 H Random Glucose 116 H Hemoglobin A1c Calcium 8.4 Phosphorus Magnesium Total Bilirubin AST ALT Alkaline Phosphatase Troponin I Total Protein Albumin Globulin Albumin/Globulin Ratio Triglycerides Cholesterol LDL Cholesterol Direct HDL Cholesterol TSH 3rd Generation Venous Blood Potassium Urine Color Urine Clarity Urine pH Ur Specific Brea Urine Protein Urine Glucose (UA) Urine Ketones Urine Blood Urine Nitrate Urine Bilirubin Urine Urobilinogen Ur Leukocyte Esterase Urine RBC (Auto) Urine Microscopic WBC Ur Squamous Epith Cells Urine Bacteria Urine Opiates Screen Urine Methadone Screen Ur Barbiturates Screen Ur Phencyclidine Scrn Ur Amphetamines Screen U Benzodiazepines Scrn U Oth Cocaine Metabols U Cannabinoids Screen Alcohol, Quantitative Blood Type Blood Type Confirm Antibody Screen BBK History Checked 06/10/18 06/10/18 06/10/18 06:33 11:42 16:44 WBC RBC Hgb Hct MCV MCH MCHC RDW Plt Count MPV Neut % (Auto) Lymph % (Auto) [place]ombs % (Auto) Eos % (Auto) Baso % (Auto) Neut # (Auto) Lymph # (Auto) [place]ombs # (Auto) Eos # (Auto) Baso # (Auto) ESR PT INR APTT pO2 VBG pH VBG pCO2 VBG HCO3 VBG Total CO2 VBG O2 Sat (Calc) VBG Base Excess VBG Potassium Sodium Chloride Glucose Lactate FiO2 Potassium Carbon Dioxide Anion Gap BUN Creatinine Est GFR ( Amer) Est GFR (Non-Af Amer) POC Glucose (mg/dL) 120 H 170 H 175 H Random Glucose Hemoglobin A1c Calcium Phosphorus Magnesium Total Bilirubin AST ALT Alkaline Phosphatase Troponin I Total Protein Albumin Globulin Albumin/Globulin Ratio Triglycerides Cholesterol LDL Cholesterol Direct HDL Cholesterol TSH 3rd Generation Venous Blood Potassium Urine Color Urine Clarity Urine pH Ur Specific Brea Urine Protein Urine Glucose (UA) Urine Ketones Urine Blood Urine Nitrate Urine Bilirubin Urine Urobilinogen Ur Leukocyte Esterase Urine RBC (Auto) Urine Microscopic WBC Ur Squamous Epith Cells Urine Bacteria Urine Opiates Screen Urine Methadone Screen Ur Barbiturates Screen Ur Phencyclidine Scrn Ur Amphetamines Screen U Benzodiazepines Scrn U Oth Cocaine Metabols U Cannabinoids Screen Alcohol, Quantitative Blood Type Blood Type Confirm Antibody Screen BBK History Checked 06/10/18 06/11/18 06/11/18 22:57 04:25 04:25 WBC 8.4 RBC 3.82 Hgb 10.9 L Hct 33.4 L MCV 87.4 MCH 28.6 MCHC 32.7 L RDW 17.9 H Plt Count 227 MPV Neut % (Auto) Lymph % (Auto) [place]ombs % (Auto) Eos % (Auto) Baso % (Auto) Neut # (Auto) Lymph # (Auto) [place]ombs # (Auto) Eos # (Auto) Baso # (Auto) ESR 78 H PT INR APTT pO2 VBG pH VBG pCO2 VBG HCO3 VBG Total CO2 VBG O2 Sat (Calc) VBG Base Excess VBG Potassium Sodium Chloride Glucose Lactate FiO2 Potassium Carbon Dioxide Anion Gap BUN Creatinine Est GFR ( Amer) Est GFR (Non-Af Amer) POC Glucose (mg/dL) 92 Random Glucose Hemoglobin A1c Calcium Phosphorus Magnesium Total Bilirubin AST ALT Alkaline Phosphatase Troponin I Total Protein Albumin Globulin Albumin/Globulin Ratio Triglycerides Cholesterol LDL Cholesterol Direct HDL Cholesterol TSH 3rd Generation Venous Blood Potassium Urine Color Urine Clarity Urine pH Ur Specific Brea Urine Protein Urine Glucose (UA) Urine Ketones Urine Blood Urine Nitrate Urine Bilirubin Urine Urobilinogen Ur Leukocyte Esterase Urine RBC (Auto) Urine Microscopic WBC Ur Squamous Epith Cells Urine Bacteria Urine Opiates Screen Urine Methadone Screen Ur Barbiturates Screen Ur Phencyclidine Scrn Ur Amphetamines Screen U Benzodiazepines Scrn U Oth Cocaine Metabols U Cannabinoids Screen Alcohol, Quantitative Blood Type Blood Type Confirm Antibody Screen BBK History Checked 06/11/18 06/11/18 06/11/18 04:25 05:56 08:22 WBC RBC Hgb Hct MCV MCH MCHC RDW Plt Count MPV Neut % (Auto) Lymph % (Auto) [place]ombs % (Auto) Eos % (Auto) Baso % (Auto) Neut # (Auto) Lymph # (Auto) [place]ombs # (Auto) Eos # (Auto) Baso # (Auto) ESR PT INR APTT pO2 VBG pH VBG pCO2 VBG HCO3 VBG Total CO2 VBG O2 Sat (Calc) VBG Base Excess VBG Potassium Sodium 140 Chloride 115 H Glucose Lactate FiO2 Potassium 3.4 L Carbon Dioxide 22 Anion Gap 6 L BUN 13 Creatinine 1.0 Est GFR ( Amer) > 60 Est GFR (Non-Af Amer) 56 POC Glucose (mg/dL) 98 70 Random Glucose 136 H Hemoglobin A1c Calcium 8.3 L Phosphorus Magnesium Total Bilirubin AST ALT Alkaline Phosphatase Troponin I Total Protein Albumin Globulin Albumin/Globulin Ratio Triglycerides Cholesterol LDL Cholesterol Direct HDL Cholesterol TSH 3rd Generation Venous Blood Potassium Urine Color Urine Clarity Urine pH Ur Specific Brea Urine Protein Urine Glucose (UA) Urine Ketones Urine Blood Urine Nitrate Urine Bilirubin Urine Urobilinogen Ur Leukocyte Esterase Urine RBC (Auto) Urine Microscopic WBC Ur Squamous Epith Cells Urine Bacteria Urine Opiates Screen Urine Methadone Screen Ur Barbiturates Screen Ur Phencyclidine Scrn Ur Amphetamines Screen U Benzodiazepines Scrn U Oth Cocaine Metabols U Cannabinoids Screen Alcohol, Quantitative Blood Type Blood Type Confirm Antibody Screen BBK History Checked 06/11/18 06/11/18 06/11/18 11:20 16:02 21:39 WBC RBC Hgb Hct MCV MCH MCHC RDW Plt Count MPV Neut % (Auto) Lymph % (Auto) [place]ombs % (Auto) Eos % (Auto) Baso % (Auto) Neut # (Auto) Lymph # (Auto) [place]ombs # (Auto) Eos # (Auto) Baso # (Auto) ESR PT INR APTT pO2 VBG pH VBG pCO2 VBG HCO3 VBG Total CO2 VBG O2 Sat (Calc) VBG Base Excess VBG Potassium Sodium Chloride Glucose Lactate FiO2 Potassium Carbon Dioxide Anion Gap BUN Creatinine Est GFR ( Amer) Est GFR (Non-Af Amer) POC Glucose (mg/dL) 99 126 H 143 H Random Glucose Hemoglobin A1c Calcium Phosphorus Magnesium Total Bilirubin AST ALT Alkaline Phosphatase Troponin I Total Protein Albumin Globulin Albumin/Globulin Ratio Triglycerides Cholesterol LDL Cholesterol Direct HDL Cholesterol TSH 3rd Generation Venous Blood Potassium Urine Color Urine Clarity Urine pH Ur Specific Brea Urine Protein Urine Glucose (UA) Urine Ketones Urine Blood Urine Nitrate Urine Bilirubin Urine Urobilinogen Ur Leukocyte Esterase Urine RBC (Auto) Urine Microscopic WBC Ur Squamous Epith Cells Urine Bacteria Urine Opiates Screen Urine Methadone Screen Ur Barbiturates Screen Ur Phencyclidine Scrn Ur Amphetamines Screen U Benzodiazepines Scrn U Oth Cocaine Metabols U Cannabinoids Screen Alcohol, Quantitative Blood Type Blood Type Confirm Antibody Screen BBK History Checked 06/12/18 06/12/18 06/12/18 04:20 04:20 06:12 WBC 8.6 RBC 4.05 Hgb 11.3 L Hct 35.3 MCV 87.1 MCH 28.0 MCHC 32.2 L RDW 17.8 H Plt Count 236 MPV 11.5 Neut % (Auto) 62.6 Lymph % (Auto) 25.8 Toombs % (Auto) 5.4 Eos % (Auto) 5.5 H Baso % (Auto) 0.7 Neut # (Auto) 5.4 Lymph # (Auto) 2.2 [place]ombs # (Auto) 0.5 Eos # (Auto) 0.5 Baso # (Auto) 0.1 ESR PT INR APTT pO2 VBG pH VBG pCO2 VBG HCO3 VBG Total CO2 VBG O2 Sat (Calc) VBG Base Excess VBG Potassium Sodium 142 Chloride 113 H Glucose Lactate FiO2 Potassium 3.5 L Carbon Dioxide 27 Anion Gap 6 L BUN 11 Creatinine 0.9 Est GFR ( Amer) > 60 Est GFR (Non-Af Amer) > 60 POC Glucose (mg/dL) 76 Random Glucose 79 Hemoglobin A1c Calcium 8.6 Phosphorus Magnesium Total Bilirubin AST ALT Alkaline Phosphatase Troponin I Total Protein Albumin Globulin Albumin/Globulin Ratio Triglycerides Cholesterol LDL Cholesterol Direct HDL Cholesterol TSH 3rd Generation Venous Blood Potassium Urine Color Urine Clarity Urine pH Ur Specific Brea Urine Protein Urine Glucose (UA) Urine Ketones Urine Blood Urine Nitrate Urine Bilirubin Urine Urobilinogen Ur Leukocyte Esterase Urine RBC (Auto) Urine Microscopic WBC Ur Squamous Epith Cells Urine Bacteria Urine Opiates Screen Urine Methadone Screen Ur Barbiturates Screen Ur Phencyclidine Scrn Ur Amphetamines Screen U Benzodiazepines Scrn U Oth Cocaine Metabols U Cannabinoids Screen Alcohol, Quantitative Blood Type Blood Type Confirm Antibody Screen BBK History Checked Microbiology 06/09/18 15:05 Blood Blood Culture - Preliminary NO GROWTH AFTER 48 HOURS 06/09/18 15:20 Blood Blood Culture - Preliminary NO GROWTH AFTER 48 HOURS 06/10/18 05:00 Naris MRSA Culture (Admit) - Final MRSA DETECTED 06/09/18 18:34 Urine,Catheterized Urine Culture - Final No Growth (<1,000 CFU/ML) Assessment and Plan (1) Non-healing wound of left heel Status: Acute (2) Status post below knee amputation of right lower extremity Status: Acute (3) Diabetes Status: Acute (4) Intertrigo Status: Acute (5) Intertrigo Status: Acute - Assessment and Plan (Free Text) Assessment: A/P- 62 year old female with multiple medical conditions including DM II, CAd, HTN, h/o OM of right leg s/p right leg BKA, left heel nonhealing diabetic wound s/p debridement at [facility], [place] a month ago has been on IV abx for pseudomoal infection of the left heel wound for past month as per Id doc at the other hospital who is now admitted for ? syncopal epsiode . pt. not septic. she remains afebrile minimal leukocytosis has resolved. right arm picc line site erythema much less. extensive intertrigo b/l groin/axailla, gluteal and Under b/l breast improving. MRSA on nasal screening blood cx- neg x 2 urien cx- neg high ESR Plan- advise to continue with IV cefepime as pt. has responded well to this for the treatmen tof the left heel pseudomonas infection. has been on this for the past 4 weeks already. advise to continue to apply nystatin powder along with clotrimazole ointment to affected areas . advise to check MRI of the left foot heal and r/o OM since there is no evidence of bone biopsy from her last admission at . if patient develops any fever would advise to d/c the picc line. intranasl mupiricin ointment BID for 3 days + nares MRSA All labs and imaging and notes reviewed.
[2018-06-12] MEDS: Mupirocin 2% Cream TOP SCH (10:50)
[2018-06-12] MEDS: Insulin Detemir 100 Units/ml Inj SC SCH ×2 (11:16→21:26)
--- NOTE | 2018-06-12 13:41 | CP.PCM.CON ---
<Casey Ruiz - Last Filed: 06/12/18 14:08> History of Present Illness - History of Present Illness History of Present Illness: Cardiology Consult Note Casey Ruiz, PGY1 note for Dr. Israel This is a 62 year old female with PMH of DM, chronic left foot ulcers, right BKA, HTN, GERD, CAD, dementia, legally blind, and chronic kidney disease presenting with AMS and possible syncopal episode. Cardiology consulted for evaluation of left leg claudication. She is on 6 week antibiotic treatment for left foot osteomyelitis. She is now approximately in week 5 of treatment. Patient currently admits to left leg pain. She denies CP, SOB, numbness, tingling, and dizziness. 12 point ROS noted here, otherwise unremarkable. PMD: Dr. Abdi SH: extensive smoking history, no alcohol or drug use Sx: R leg BKA All: acetominophe, oxycodone, hydromorphone Past Patient History - Past Social History Smoking Status: Former Smoker Alcohol: None Drugs: Denies Home Situation {Lives}: Alone - CARDIAC Hx Cardiac Disorders: Yes (HTN, high cholesterol) Hx Hypercholesterolemia: Yes Hx Hypertension: Yes - PULMONARY Hx Respiratory Disorders: No - NEUROLOGICAL Hx Neurological Disorder: Yes (CVA) HX Cerebrovascular Accident: Yes Hx Dementia: Yes - RENAL Hx Chronic Kidney Disease: Yes - ENDOCRINE/METABOLIC Hx Endocrine Disorders: Yes (DM) Hx Diabetes Mellitus Type 2: Yes - HEMATOLOGICAL/ONCOLOGICAL Hx Blood Disorders: No - INTEGUMENTARY Hx Dermatological Problems: No - MUSCULOSKELETAL/RHEUMATOLOGICAL Hx Musculoskeletal Disorders: Yes (arthritis, RT BKA, osetomylitis left heel) Hx Arthritis: Yes Hx Falls: Yes Hx Osteomyelitis: Yes - GASTROINTESTINAL Hx Gastrointestinal Disorders: Yes Hx Gastroesophageal Reflux: Yes Hx Nausea: Yes Hx Ulcer: Yes - GENITOURINARY/GYNECOLOGICAL Hx Genitourinary Disorders: Yes (incontinence) Hx Incontinence: Yes - PSYCHIATRIC Hx Psychophysiologic Disorder: Yes (anxiety) Hx Anxiety: Yes Hx Substance Use: No - SURGICAL HISTORY Hx Surgeries: Yes (RBKA) Hx Amputation: Yes - ANESTHESIA Hx Anesthesia: Yes Hx Anesthesia Reactions: No Hx Malignant Hyperthermia: No Has any member of the family had a problem w/ anesthesia?: No Meds Allergies/Adverse Reactions: Allergies Allergy/AdvReac Type Severity Reaction Status Date / Time acetaminophen [From Percocet] Allergy SWELLING Verified 06/09/18 16:17 oxycodone [From Percocet] Allergy SWELLING Verified 06/09/18 16:17 hydromorphone [From Dilaudid] AdvReac SHORTNESS Verified 06/09/18 16:17 OF BREATH - Medications Medications: Current Medications Apixaban (Eliquis) 5 mg PO Q12 [facility]; Protocol Last Admin: 06/12/18 09:50 Dose: 5 mg Aspirin (Aspirin Chewable) 81 mg PO DAILY [facility] Last Admin: 06/12/18 09:51 Dose: 81 mg Atorvastatin Calcium (Lipitor) 10 mg PO HS [facility] Last Admin: 06/11/18 21:40 Dose: 10 mg Clotrimazole (Lotrimin Af 1%) 1 applic TOP BID [facility] Last Admin: 06/11/18 16:31 Dose: 1 applic Donepezil HCl (Aricept) 10 mg PO DAILY [facility] Last Admin: 06/12/18 09:50 Dose: 10 mg Famotidine (Pepcid) 20 mg PO DAILY [facility] Last Admin: 06/12/18 09:47 Dose: 20 mg Gabapentin (Neurontin) 400 mg PO Q8H [facility] Last Admin: 06/12/18 09:50 Dose: 400 mg Home Med (Cyclosporine [Restasis]) 1 drop EACHEYE Q12 [facility] Last Admin: 06/12/18 09:51 Dose: 1 drop Sodium Chloride (Sodium Chloride 0.9%) 1,000 mls @ 100 mls/hr IV .Q10H [facility] Last Admin: 06/12/18 06:21 Dose: 100 mls/hr Cefepime HCl 1 gm/ Sodium (Chloride) 100 mls @ 100 mls/hr IVPB Q12 [facility]; Protocol Last Admin: 06/12/18 09:51 Dose: 100 mls/hr Insulin Detemir (Levemir) 20 units SC QAM [facility] Last Admin: 06/12/18 11:16 Dose: Not Given Insulin Detemir (Levemir) 30 units SC HS [facility] Last Admin: 06/11/18 21:40 Dose: 30 units Insulin Human Lispro (Humalog) 0 units SC ACHS [facility]; Protocol Last Admin: 06/12/18 11:16 Dose: Not Given Lactobacillus Acidophilus (Bacid Acidophilus) 1 cap PO DAILY [facility] Last Admin: 06/12/18 09:56 Dose: 1 cap Losartan Potassium (Cozaar) 100 mg PO DAILY [facility] Last Admin: 06/12/18 09:47 Dose: 100 mg Morphine Sulfate (Morphine) 2 mg IVP Q4 PRN PRN Reason: Pain, severe (8-10) Last Admin: 06/12/18 11:17 Dose: 2 mg Mupirocin (Bactroban Cream) 1 applic TOP BID [facility] Last Admin: 06/12/18 10:50 Dose: 1 applic Mupirocin (Bactroban Ointment) 1 applic TOP BID [facility] Stop: 06/14/18 09:01 Last Admin: 06/12/18 09:49 Dose: 1 applic Tramadol HCl (Ultram) 50 mg PO Q6 PRN PRN Reason: Other Last Admin: 06/12/18 09:43 Dose: 50 mg Physical Exam - Constitutional Appears: No Acute Distress - Head Exam Head Exam: ATRAUMATIC - Eye Exam Eye Exam: EOMI Pupil Exam: PERRL - ENT Exam ENT Exam: Mucous Membranes Moist - Respiratory Exam Respiratory Exam: Clear to Auscultation Bilateral. absent: Respiratory Distress - Cardiovascular Exam Cardiovascular Exam: REGULAR RHYTHM, +S1, +S2 - GI/Abdominal Exam GI & Abdominal Exam: Normal Bowel Sounds. absent: Distended, Firm - Extremities Exam Additional comments: Right BKA area is non bleeding, no puss appreciated Left heel has wound present measuring approximately 5x5 cm, no erythematous borders noted. Pedal Pulse in left leg is +2. - Neurological Exam Neurological exam: Alert - Skin Skin Exam: Warm Additional comments: fungal rash under breasts, axilla and groin appreciated Results - Vital Signs Recent Vital Signs: Last Vital Signs Temp 98.3 F 06/12/18 09:00 Pulse 68 06/12/18 09:47 Resp 13 06/12/18 09:00 BP 147/77 06/12/18 09:47 Pulse Ox 100 06/12/18 09:00 - Labs Result Diagrams: 06/12/18 04:20 06/12/18 04:20 Labs: Laboratory Results - last 24 hr 06/11/18 06/11/18 06/11/18 05:56 08:22 11:20 WBC RBC Hgb Hct MCV MCH MCHC RDW Plt Count MPV Neut % (Auto) Lymph % (Auto) [place] % (Auto) Eos % (Auto) Baso % (Auto) Neut # (Auto) Lymph # (Auto) [place] # (Auto) Eos # (Auto) Baso # (Auto) Sodium Potassium Chloride Carbon Dioxide Anion Gap BUN Creatinine Est GFR ( Amer) Est GFR (Non-Af Amer) POC Glucose (mg/dL) 98 70 99 Random Glucose Calcium 06/11/18 06/11/18 06/12/18 16:02 21:39 04:20 WBC 8.6 RBC 4.05 Hgb 11.3 L Hct 35.3 MCV 87.1 MCH 28.0 MCHC 32.2 L RDW 17.8 H Plt Count 236 MPV 11.5 Neut % (Auto) 62.6 Lymph % (Auto) 25.8 [place] % (Auto) 5.4 Eos % (Auto) 5.5 H Baso % (Auto) 0.7 Neut # (Auto) 5.4 Lymph # (Auto) 2.2 [place] # (Auto) 0.5 Eos # (Auto) 0.5 Baso # (Auto) 0.1 Sodium Potassium Chloride Carbon Dioxide Anion Gap BUN Creatinine Est GFR ( Amer) Est GFR (Non-Af Amer) POC Glucose (mg/dL) 126 H 143 H Random Glucose Calcium 06/12/18 06/12/18 04:20 06:12 WBC RBC Hgb Hct MCV MCH MCHC RDW Plt Count MPV Neut % (Auto) Lymph % (Auto) [place] % (Auto) Eos % (Auto) Baso % (Auto) Neut # (Auto) Lymph # (Auto) [place] # (Auto) Eos # (Auto) Baso # (Auto) Sodium 142 Potassium 3.5 L Chloride 113 H Carbon Dioxide 27 Anion Gap 6 L BUN 11 Creatinine 0.9 Est GFR ( Amer) > 60 Est GFR (Non-Af Amer) > 60 POC Glucose (mg/dL) 76 Random Glucose 79 Calcium 8.6 Assessment & Plan - Assessment and Plan (Free Text) Assessment: This is a 62 year old female with PMH of DM, chronic left foot ulcers, right BKA, HTN, GERD, CAD, dementia, legally blind, and chronic kidney disease presenting with AMS and possible syncopal episode. Plan: Left foot Osteomyelitis/claudication -cardiology consulted for left leg pain and claudication -angiography abdomen ileofemoral CT pending -on 6 weeks antibiotic treatment for left foot osteomyelitis -history of chronic leg wounds and right leg BKA -continue ASA, lipitor, neurontin, cozaar -continue cefepime, clotrimazole Case reviewed with attending, further recommendations per Dr. Israel <Murali Israel - Last Filed: 06/19/18 10:02> Meds - Medications Medications: Current Medications Apixaban (Eliquis) 5 mg PO Q12 [facility]; Protocol Last Admin: 06/18/18 21:46 Dose: 5 mg Aspirin (Aspirin Chewable) 81 mg PO DAILY [facility] Last Admin: 06/18/18 10:25 Dose: 81 mg Atorvastatin Calcium (Lipitor) 10 mg PO HS [facility] Last Admin: 06/18/18 21:46 Dose: 10 mg Bacitracin (Bacitracin) 1 ea TOP TID [facility] Last Admin: 06/18/18 17:03 Dose: 1 ea Donepezil HCl (Aricept) 10 mg PO DAILY [facility] Last Admin: 06/18/18 10:25 Dose: 10 mg Famotidine (Pepcid) 20 mg PO DAILY [facility] Last Admin: 06/18/18 10:31 Dose: 20 mg Gabapentin (Neurontin) 400 mg PO Q8H [facility] Last Admin: 06/19/18 00:08 Dose: 400 mg Home Med (Cyclosporine [Restasis]) 1 drop EACHEYE Q12 [facility] Last Admin: 06/18/18 22:00 Dose: 1 drop Cefepime HCl 1 gm/ Sodium (Chloride) 100 mls @ 100 mls/hr IVPB Q12 [facility]; Protocol Last Admin: 06/18/18 21:43 Dose: 100 mls/hr Insulin Detemir (Levemir) 15 units SC HS [facility] Last Admin: 06/18/18 21:47 Dose: 15 units Insulin Detemir (Levemir) 10 units SC QAM [facility] Last Admin: 06/18/18 17:06 Dose: Not Given Insulin Human Lispro (Humalog) 0 units SC ACHS [facility]; Protocol Last Admin: 06/18/18 21:47 Dose: Not Given Ketorolac Tromethamine (Toradol) 15 mg IVP Q6 PRN PRN Reason: Pain, moderate (4-7) Last Admin: 06/18/18 18:20 Dose: 15 mg Lactobacillus Acidophilus (Bacid Acidophilus) 1 cap PO DAILY [facility] Last Admin: 06/18/18 10:44 Dose: 1 cap Losartan Potassium (Cozaar) 100 mg PO DAILY [facility] Last Admin: 06/18/18 10:28 Dose: 100 mg Mupirocin (Bactroban Ointment) 1 applic TOP BID [facility] Last Admin: 06/18/18 17:03 Dose: 1 applic Nystatin (Nystop Topical Powder) 1 applic TOP TID [facility] Last Admin: 06/18/18 17:07 Dose: 1 applic Potassium Chloride (Klor-Con 10) 10 meq PO DAILY [facility] Last Admin: 06/18/18 10:44 Dose: 10 meq Results - Vital Signs Recent Vital Signs: Last Vital Signs Temp 97.5 F L 06/19/18 08:13 Pulse 68 06/19/18 08:13 Resp 18 06/19/18 08:13 BP 180/85 H 06/19/18 08:13 Pulse Ox 100 06/19/18 08:13 - Labs Result Diagrams: 06/16/18 04:20 06/16/18 04:20 Labs: Laboratory Results - last 24 hr 06/18/18 06/18/18 06/18/18 12:22 16:16 21:39 POC Glucose (mg/dL) 377 H 204 H 180 H 06/19/18 05:28 POC Glucose (mg/dL) 134 H Assessment & Plan (1) PVD (peripheral vascular disease) Status: Acute (2) Gangrene of lower extremity Status: Acute (3) Non-healing wound of left heel Status: Acute (4) Status post below knee amputation of right lower extremity Status: Acute Attending/Attestation - Attestation I have personally seen and examined this patient.: Yes I have fully participated in the care of the patient.: Yes I have reviewed all pertinent clinical information: Yes Notes (Text): 06/19/18 10:00 CTA of b/l LE GDMT for PVD further titration based on results of CTA
[2018-06-12] MEDS ORDERED: Iodixanol 320 MG/ML 100 ML BOTTLE IV ONE (15:03)
[2018-06-12] MEDS ORDERED: Sodium Chloride 0.9% 100 ML ONE (15:03)
[2018-06-12] MEDS ORDERED: Iodixanol 320 mg/ml 50 ml Sol IV ONE (15:03)
[2018-06-12] MEDS: Potassium Chloride 10 mEq ER Tab PO SCH (18:10)
--- NOTE | 2018-06-12 19:57 | PN ---
DATE: 06/12/2018 SUBJECTIVE: No reported bradyarrhythmia. The patient denied any dizziness or palpitation. The patient has no shortness of breath or chest pain. PHYSICAL EXAMINATION: VITAL SIGNS: Blood pressure 150/78, heart rate 68, temperature 98.5, and respirations 19. HEENT: Normocephalic. CHEST: Clear. HEART: S1 and S2 regular. EXTREMITIES: Right below-knee amputation and dressings applied to the left heel. LABORATORY DATA: CBC: WBC 8.6, hemoglobin 11.3, hematocrit 35.3, platelet count 136,000. SMA-7: Sodium 142, potassium 3.5, chloride 115, CO2 27, glucose 79, BUN 11, and creatinine 0.9. Blood culture is negative after 24 hours. Abdominal angiography was performed; however, the report is still pending. ASSESSMENT: 1. Symptomatic bradycardia. 2. Status post syncopal episode. 3. Peripheral vascular disease with chronic left foot ulcer and right below-knee amputation. 4. History of coronary artery disease. RECOMMENDATIONS: Continue Aricept 10 mg once a day, aspirin 81 mg once a day, IV cefepime at 1 g every 12 hours, Cozaar at 100 mg daily, Eliquis 5 mg twice a day, Levemir 30 units subcutaneously nightly and 20 units in the a.m., Lipitor at 10 mg once a day, morphine sulfate 2 mg intravenously every 4 hours p.r.n., Neurontin 100 mg p.o. every 8 hours, normal saline at 100 mL an hour, Ultram at 50 mg every 6 hours. I will follow. Abnormal angiography report. Tommy Willett MD
--- NOTE | 2018-06-12 23:44 | PN ---
DATE: 06/12/2018 DAILY PROGRESS NOTE SUBJECTIVE: The patient is seen today, 06/12/2018. She was complaining of pain on the left foot as well as occasional headaches. PHYSICAL EXAMINATION: VITAL SIGNS: Blood pressure 150/74, temperature 98.5, respiratory rate 19, and pulse 68. HEENT: The patient is blind on the left eye. NECK: Supple. No JVD. No carotid bruit. No lymph node. No thyromegaly. CHEST AND LUNGS: Bilateral symmetrical expansion. Good air exchange. No rales. No rhonchi. CARDIOVASCULAR SYSTEM: PMI not localized. S1 and S2. No additional sounds. ABDOMEN: Normoactive bowel sounds. No tenderness. No organomegaly. No masses. EXTREMITIES: No cyanosis, no clubbing, no edema. The patient has right BKA and left foot ulcer. CENTRAL NERVOUS SYSTEM: Alert, awake, oriented x2. No neurological deficit could be appreciated. ASSESSMENT: 1. Status post fall with possible syncope. 2. Bradycardia, likely secondary to beta blockers which was stopped. 3. Complicated type 2 diabetes mellitus. 4. Diabetic foot. PLAN: Continue current antibiotics, podiatry consult and follow recommendations. Pain management. Accu-Cheks with insulin coverage. Cyndie Orellana MD
[2018-06-13] MEDS: Sodium Chloride 0.9% 1,000 ML IV SCH ×2 (03:28→22:38)
[2018-06-13 05:42] LABS: BASO # 0.1 K/uL (0.0-0.2); BASO % 0.6 % (0.0-2.0); EOS # 0.4 K/uL (0.0-0.7); EOS % 4.3 % (0.0-4.0); HEMOGLOBIN 11.2 g/dL (12.0-16.0); LYMPH # 2.3 K/uL (1.0-4.3); LYMPH % 24.7 % (20.0-40.0); MEAN CELL VOLUME 87.4 fl (81.0-99.0); MEAN CORPUSCULAR HEMOGLOBIN 28.3 pg (27.0-31.0); MEAN CORPUSCULAR HGB CONC 32.4 g/dL (33.0-37.0); MEAN PLATELET VOLUME 11.4 fl (7.2-11.7); MONO # 0.6 K/uL (0.0-0.8); MONO % 6.7 % (0.0-10.0); NEUT % 63.7 % (50.0-75.0); RBC 3.96 Mil/uL (3.80-5.20); RED CELL DISTRIBUTION WIDTH 17.5 % (11.5-14.5); WHITE BLOOD COUNT 9.4 K/uL (4.8-10.8)
[2018-06-13 05:48] LABS: ALB/GLOB RATIO 0.8 (1.0-2.1); ALBUMIN 2.6 g/dL (3.5-5.0); ALT/SGPT 23 U/L (9-52); AST/SGOT 17 U/L (14-36); BLOOD UREA NITROGEN 11 mg/dl (7-17); CALCIUM 8.3 mg/dL (8.4-10.2); GFR NON-AFRICAN AMERICAN 56
[2018-06-13] MEDS: Insulin Lispro (humaLOG) 100 Units/ml Inj SC SCH ×4 (06:32→22:31)
--- NOTE | 2018-06-13 07:26 | CP.PCM.PN ---
Subjective - Date & Time of Evaluation Date of Evaluation: 06/13/18 Time of Evaluation: 10:50 - Subjective Subjective: Podiatry progress note for Dr. Houston 62 y/o F patient seen and evaluated at the bedside for left heel ulcer. Patient still confused but her level of consciousness s getting better. Patient states that she doesn't have leg pain today. Patient denies any pain in her heel ulceration. Patient denies any other pedal complaint at this time. Patient is currently on 6 weeks of IV ABx for her left foot acute OM and has a PICC line. Patient denies any overnight N/V/F/C or SOB. Objective - Vital Signs/Intake and Output Vital Signs (last 24 hours): Temp Pulse Resp BP Pulse Ox 98.5 F 61 12 151/55 H 98 06/13/18 01:00 06/13/18 05:00 06/13/18 05:00 06/13/18 05:00 06/13/18 05:00 Intake and Output: 06/13/18 06/13/18 06:59 18:59 Intake Total 600 Output Total 400 Balance 200 - Medications Medications: Current Medications Apixaban (Eliquis) 5 mg PO Q12 [facility]; Protocol Last Admin: 06/12/18 21:26 Dose: 5 mg Aspirin (Aspirin Chewable) 81 mg PO DAILY [facility] Last Admin: 06/12/18 09:51 Dose: 81 mg Atorvastatin Calcium (Lipitor) 10 mg PO HS [facility] Last Admin: 06/12/18 21:26 Dose: 10 mg Clotrimazole (Lotrimin Af 1%) 1 applic TOP BID [facility] Last Admin: 06/12/18 18:11 Dose: 1 applic Donepezil HCl (Aricept) 10 mg PO DAILY [facility] Last Admin: 06/12/18 09:50 Dose: 10 mg Famotidine (Pepcid) 20 mg PO DAILY [facility] Last Admin: 06/12/18 09:47 Dose: 20 mg Gabapentin (Neurontin) 400 mg PO Q8H [facility] Last Admin: 06/13/18 00:15 Dose: 400 mg Home Med (Cyclosporine [Restasis]) 1 drop EACHEYE Q12 [facility] Last Admin: 06/12/18 21:26 Dose: 1 drop Sodium Chloride (Sodium Chloride 0.9%) 1,000 mls @ 100 mls/hr IV .Q10H [facility] Last Admin: 06/13/18 03:28 Dose: 100 mls/hr Cefepime HCl 1 gm/ Sodium (Chloride) 100 mls @ 100 mls/hr IVPB Q12 [facility]; Protocol Last Admin: 06/12/18 21:25 Dose: 100 mls/hr Insulin Detemir (Levemir) 20 units SC QAM [facility] Last Admin: 06/12/18 11:16 Dose: Not Given Insulin Detemir (Levemir) 30 units SC HS [facility] Last Admin: 06/12/18 21:26 Dose: Not Given Insulin Human Lispro (Humalog) 0 units SC ACHS [facility]; Protocol Last Admin: 06/13/18 06:32 Dose: Not Given Lactobacillus Acidophilus (Bacid Acidophilus) 1 cap PO DAILY [facility] Last Admin: 06/12/18 09:56 Dose: 1 cap Losartan Potassium (Cozaar) 100 mg PO DAILY [facility] Last Admin: 06/12/18 09:47 Dose: 100 mg Morphine Sulfate (Morphine) 2 mg IVP Q4 PRN PRN Reason: Pain, severe (8-10) Last Admin: 06/12/18 11:17 Dose: 2 mg Mupirocin (Bactroban Cream) 1 applic TOP BID [facility] Last Admin: 06/12/18 10:50 Dose: 1 applic Mupirocin (Bactroban Ointment) 1 applic TOP BID [facility] Stop: 06/14/18 09:01 Last Admin: 06/12/18 18:12 Dose: 1 applic Potassium Chloride (Klor-Con 10) 10 meq PO DAILY [facility] Last Admin: 06/12/18 18:10 Dose: 10 meq - Labs Labs: 06/13/18 04:45 06/13/18 04:45 PT 17.2 Seconds (9.8-13.1) H 06/09/18 15:35 INR 1.5 06/09/18 15:35 APTT 36.4 Seconds (25.6-37.1) 06/09/18 15:35 - Constitutional Appears: Well, Non-toxic, No Acute Distress - Head Exam Head Exam: ATRAUMATIC, NORMOCEPHALIC - Extremities Exam Additional comments: Left LE focused exam, R LE BKA Vasc: DP/PT pulses faintly palpable 1/4. Temp gradient warm to cool from proximal to distal. Cap refill < 3 seconds to all digits. No edema or erythema noted. Neuro: Protective sensation grossly diminished. Derm: Approximatly 2.8 cm x 2 cm X0.2 cm Oval ulceration noted to plantar/posterior left heel. Wound have fibrous and granular base 70:30.Positive probe to bone. no malodor. No drainage. No tracking, tunneling or undermining appreciated. No erythema MSK: Rigid contractures of all digits 1-5. Limited ROM at all major joints and diffuse arthritic changes. Muscle power 5/5 in all groups. No pain on palpating the abby-ulcerative area. - Neurological Exam Neurological Exam: Alert, Awake Assessment and Plan - Assessment and Plan (Free Text) Assessment: 62 y/o F patient seen and evaluated for an ulcer of the L heel Plan: Patient seen and evaluated at the bedside. Plan discussed with Dr. Houston. Charts, Labs and vitals reviewed: Afebrile, WBC 9.4 LE MRI (05/02): possible early acute and or developing acute osteomyelitis with possible underlying cellulitis Multipodus boot to be worn at all times while in bed Wound dressed with bactroban, DSD No plan for surgical intervention at this time.+ Vascular are onboard, Recommendations appreciated. LE CT angio ordered by the interventional vascular Pending official report. Patient to follow up with Dr. Houston in his office upon discharge. Podiatry will continue to follow while patient in house.
[2018-06-13] MEDS: Patient's Own Med (Cyclosporine [Restasis] 1 DROP) EACHEYE SCH ×2 (08:33→21:19)
[2018-06-13] MEDS: Insulin Detemir 100 Units/ml Inj SC SCH ×2 (08:34→22:39)
[2018-06-13] MEDS: Potassium Chloride 10 mEq ER Tab PO SCH (08:34)
[2018-06-13] MEDS: Cefepime 1 GM in Sodium Chloride 0.9% 100 ML IVPB SCH ×2 (08:35→21:33)
[2018-06-13] MEDS: Lactobacillus Acidophilus 500 MU Cap PO SCH (08:39)
--- NOTE | 2018-06-13 13:32 | CT ---
Date of service: 06/12/2018 PROCEDURE: CT Angiography Abdomen, Pelvis and Lower Extremity with Contrast HISTORY: left leg occlusion COMPARISON: None available. TECHNIQUE: Technique: CT angiography of the abdomen, pelvis and bilateral lower extremities performed in the arterial phase of enhancement. Coronal and sagittal reformats, and well as rotating MIP images of the vessels generated at the workstation. Intravenous contrast dose: Visipaque 320, 145 cc Radiation dose: Total exam DLP = 1434.94 mGy-cm. This CT exam was performed using one or more of the following dose reduction techniques: Automated exposure control, adjustment of the mA and/or kV according to patient size, and/or use of iterative reconstruction technique. FINDINGS: CT ANGIOGRAPHY: ABDOMINAL AORTA:: The abdominal aorta is widely patent from the diaphragmatic hiatus to its bifurcation only limited calcified atherosclerosis identified. MAJOR AORTIC BRANCHES: Celiac [place]: Widely patent. Superior mesenteric artery: Widely patent. Inferior mesenteric artery: Patent. Renal arteries: Patent, with solitary bilateral renal arteries identified PELVIC ARTERIES: Right Common Iliac: Fibc-rt-lazjqaad calcified atherosclerosis without significant stenosis, patent. Right External Iliac: Minimally atherosclerotic without significant stenosis appreciated. Right Internal Iliac: Mildly atherosclerotic with mild distal stenoses identified. Left Common Iliac: Knfe-fi-pkmppkdv calcified atherosclerosis without significant stenosis, widely patent. Left External Iliac: Widely patent without significant stenosis. Left Internal Iliac: Mild to moderately atherosclerotic with moderate proximal stenosis and otherwise widely patent. RIGHT LOWER EXTREMITY ARTERIES: Right Common Femoral: Widely patent without significant stenosis. Right Superficial Femoral: Moderate stenosis at its origin with multifocal partially calcified plaques scattered diffusely resulting and infrequent lhrh-rx-mpohbcmn stenoses with multiple segmental high-grade stenoses identified at the adductor canal level without definite occlusion. Right Profunda Femoris: Patent. Right Popliteal:Mild proximal stenosis with moderate mid and distal segmental stenoses with ultimate apparent occlusion distally, related to kkpda-apx-yfje amputation. Runoff not applicable. LEFT LOWER EXTREMITY ARTERIES: Left Common Femoral: Limited noncalcified atherosclerosis with minimal distal stenosis but patent to its bifurcation. Left Superficial Femoral: Infrequent mild a solitary moderate mid stenosis appreciate with variable predominantly noncalcified plaque identified along its course. Mild distal segmental stenoses are encountered as well though the artery is patent to its popliteal junction. Left Profunda Femoris: Patent. Left Popliteal: Bnng-xi-htoovfoo proximal stenosis with moderate to severe distal stenosis. Left Anterior Tibial: Appears patent to the ankle although high-grade stenosis is identified near the junction with the dorsalis pedis artery. Left Tibioperoneal Trunk: Patent. Left Posterior Tibial: Appears patent with segmental moderate stenoses scattered at its mid and distal segment with the overall caliber appearing somewhat small overall. Left Peroneal: Short segmental occlusions are identified at the proximal segment with complete occlusion noted at the mid leg level without distal reconstitution apparent. Left Dorsalis pedis: Appears patent. NON-ANGIOGRAPHIC ASPECT OF THE EXAM: (As seen in arterial phase of enhancement) LOWER THORAX: Hiatal hernia appreciated. LIVER: Dilatation of the central intrahepatic bile ducts is identified including common hepatic duct up to 18 mm. GALLBLADDER AND BILE DUCTS: Prior cholecystectomy apparent. Common bile duct is dilated left 25 mm proximally 12 mm at the mid segment a 9 mm distally without radiodense choledocholithiasis appreciated this is likely a function of prior cholecystectomy. Clinically correlate nevertheless. PANCREAS: Unremarkable. No gross lesion or ductal dilatation. SPLEEN: Unremarkable. ADRENALS: Unremarkable. No mass. KIDNEYS AND URETERS: No obstructive uropathy bilaterally. Small cortical defect identified at the mid and lower pole left kidney suspicious for small chronic infarcts. A cyst is seen at the upper pole left kidney measure 1.8 cm with several tiny cortical lucencies identified mid lower pole cyst too small to characterize. Similar tiny foci are also seen the upper pole right kidney. STOMACH AND BOWEL: No bowel obstruction appreciable. The stomach is mildly distend with fluid and retained air. Limited retained fecal material scattered throughout various large-bowel segments. APPENDIX: No CT evidence of appendicitis. PERITONEUM: Unremarkable. No free fluid. No free air. LYMPH NODES: Unremarkable. No enlarged lymph nodes. BLADDER: Largely collapsed urinary bladder difficult to evaluate. No radiodense urolithiasis in the lumen. REPRODUCTIVE: Unremarkable. BONES: No acute fracture. OTHER FINDINGS: Status post inferior vena cava filter placement. IMPRESSION: 1. Widely patent abdominal aorta and and bilateral iliac arterial system with tqfn-uo-knodmfln atherosclerotic changes partially calcified. 2. Moderate arterial disease right SFA and proximal and mid segments with moderate to severe distal disease. Only patent popliteal artery up to below the knee amputation. 3. Mild arterial disease left SFA with the vessel patent through its junction with the popliteal artery. Ezrk-nm-euiwxqtc proximal and moderate to severe distal popliteal artery stenoses. 4. 2 vessel left lower extremity runoff with the perineal occluded at its mid segment.
--- NOTE | 2018-06-13 13:37 | CP.PCM.PN ---
Subjective - Date & Time of Evaluation Date of Evaluation: 06/13/18 Time of Evaluation: 13:37 - Subjective Subjective: ID note- Pt. seen and examined today in med-surg floor. Patient in good spirits and denies any fever or chills. states her itchy rash under her breast and axilla is improving. Objective - Vital Signs/Intake and Output Vital Signs (last 24 hours): Temp Pulse Resp BP Pulse Ox 98.5 F 83 16 151/55 H 100 06/13/18 13:00 06/13/18 13:00 06/13/18 13:00 06/13/18 13:00 06/13/18 13:00 Intake and Output: 06/13/18 06/13/18 06:59 18:59 Intake Total 600 880 Output Total 400 900 Balance 200 -20 - Medications Medications: Current Medications Apixaban (Eliquis) 5 mg PO Q12 [facility]; Protocol Last Admin: 06/13/18 08:33 Dose: 5 mg Aspirin (Aspirin Chewable) 81 mg PO DAILY [facility] Last Admin: 06/13/18 08:31 Dose: 81 mg Atorvastatin Calcium (Lipitor) 10 mg PO HS [facility] Last Admin: 06/12/18 21:26 Dose: 10 mg Donepezil HCl (Aricept) 10 mg PO DAILY [facility] Last Admin: 06/13/18 08:31 Dose: 10 mg Famotidine (Pepcid) 20 mg PO DAILY [facility] Last Admin: 06/13/18 08:39 Dose: 20 mg Gabapentin (Neurontin) 400 mg PO Q8H [facility] Last Admin: 06/13/18 11:59 Dose: 400 mg Home Med (Cyclosporine [Restasis]) 1 drop EACHEYE Q12 [facility] Last Admin: 06/13/18 08:33 Dose: 1 drop Sodium Chloride (Sodium Chloride 0.9%) 1,000 mls @ 100 mls/hr IV .Q10H [facility] Last Admin: 06/13/18 03:28 Dose: 100 mls/hr Cefepime HCl 1 gm/ Sodium (Chloride) 100 mls @ 100 mls/hr IVPB Q12 [facility]; Protocol Last Admin: 06/13/18 08:35 Dose: 100 mls/hr Insulin Detemir (Levemir) 20 units SC QAM [facility] Last Admin: 06/13/18 08:34 Dose: Not Given Insulin Detemir (Levemir) 30 units SC [facility] Last Admin: 06/12/18 21:26 Dose: Not Given Insulin Human Lispro (Humalog) 0 units SC [facility]; Protocol Last Admin: 06/13/18 11:55 Dose: Not Given Lactobacillus Acidophilus (Bacid Acidophilus) 1 cap PO DAILY [facility] Last Admin: 06/13/18 08:39 Dose: 1 cap Losartan Potassium (Cozaar) 100 mg PO DAILY [facility] Last Admin: 06/13/18 08:32 Dose: 100 mg Morphine Sulfate (Morphine) 2 mg IVP Q4 PRN PRN Reason: Pain, severe (8-10) Last Admin: 06/13/18 11:59 Dose: 2 mg Mupirocin (Bactroban Cream) 1 applic TOP BID [facility] Last Admin: 06/12/18 10:50 Dose: 1 applic Mupirocin (Bactroban Ointment) 1 applic TOP BID [facility] Stop: 06/14/18 09:01 Last Admin: 06/13/18 08:32 Dose: 1 applic Nystatin (Nystop Topical Powder) 1 applic TOP TID [facility] Potassium Chloride (Klor-Con 10) 10 meq PO DAILY [facility] Last Admin: 06/13/18 08:34 Dose: 10 meq - Labs Labs: - Additional Findings Additional findings: - Constitutional Appears: No Acute Distress - Head Exam Head Exam: ATRAUMATIC - ENT Exam ENT Exam: Normal Oropharynx - Neck Exam Neck exam: Positive for: Full Rom - Respiratory Exam Respiratory Exam: Clear to Auscultation Bilateral, NORMAL BREATHING PATTERN - Cardiovascular Exam Cardiovascular Exam: RRR, +S1, +S2 - GI/Abdominal Exam GI & Abdominal Exam: Normal Bowel Sounds, Soft Additional comments: NT, ND - Extremities Exam Additional comments: Right BKA site clean/dry/Intact left heel about 4 x 6 cm wound without any malodor, minimal clear/discharge no surrounding erythema - Neurological Exam Neurological exam: Alert, Oriented x3 - Skin Additional comments: fungal rash under b/l breast and b/l groin region and b/l gluteus region and b/l axilla extensive but much less erythematous now and much less pruritic as per pt. (intertrigo) - Additional Findings Additional findings: Lines- right arm PICC line without any tenderness, no swelling, erythema almost resolved. Laboratory Results - last 72 hr 06/10/18 06/10/18 06/10/18 06:33 11:42 16:44 WBC RBC Hgb Hct MCV MCH MCHC RDW Plt Count MPV Neut % (Auto) Lymph % (Auto) Moca % (Auto) Eos % (Auto) Baso % (Auto) Neut # (Auto) Lymph # (Auto) Moca # (Auto) Eos # (Auto) Baso # (Auto) ESR Sodium Potassium Chloride Carbon Dioxide Anion Gap BUN Creatinine Est GFR ( Amer) Est GFR (Non-Af Amer) POC Glucose (mg/dL) 120 H 170 H 175 H Random Glucose Calcium Total Bilirubin AST ALT Alkaline Phosphatase Total Protein Albumin Globulin Albumin/Globulin Ratio 06/10/18 06/11/18 06/11/18 22:57 04:25 04:25 WBC 8.4 RBC 3.82 Hgb 10.9 L Hct 33.4 L MCV 87.4 MCH 28.6 MCHC 32.7 L RDW 17.9 H Plt Count 227 MPV Neut % (Auto) Lymph % (Auto) Moca % (Auto) Eos % (Auto) Baso % (Auto) Neut # (Auto) Lymph # (Auto) Moca # (Auto) Eos # (Auto) Baso # (Auto) ESR 78 H Sodium Potassium Chloride Carbon Dioxide Anion Gap BUN Creatinine Est GFR ( Amer) Est GFR (Non-Af Amer) POC Glucose (mg/dL) 92 Random Glucose Calcium Total Bilirubin AST ALT Alkaline Phosphatase Total Protein Albumin Globulin Albumin/Globulin Ratio 06/11/18 06/11/18 06/11/18 04:25 05:56 08:22 WBC RBC Hgb Hct MCV MCH MCHC RDW Plt Count MPV Neut % (Auto) Lymph % (Auto) Moca % (Auto) Eos % (Auto) Baso % (Auto) Neut # (Auto) Lymph # (Auto) Moca # (Auto) Eos # (Auto) Baso # (Auto) ESR Sodium 140 Potassium 3.4 L Chloride 115 H Carbon Dioxide 22 Anion Gap 6 L BUN 13 Creatinine 1.0 Est GFR ( Amer) > 60 Est GFR (Non-Af Amer) 56 POC Glucose (mg/dL) 98 70 Random Glucose 136 H Calcium 8.3 L Total Bilirubin AST ALT Alkaline Phosphatase Total Protein Albumin Globulin Albumin/Globulin Ratio 06/11/18 06/11/18 06/11/18 11:20 16:02 21:39 WBC RBC Hgb Hct MCV MCH MCHC RDW Plt Count MPV Neut % (Auto) Lymph % (Auto) Moca % (Auto) Eos % (Auto) Baso % (Auto) Neut # (Auto) Lymph # (Auto) Moca # (Auto) Eos # (Auto) Baso # (Auto) ESR Sodium Potassium Chloride Carbon Dioxide Anion Gap BUN Creatinine Est GFR ( Amer) Est GFR (Non-Af Amer) POC Glucose (mg/dL) 99 126 H 143 H Random Glucose Calcium Total Bilirubin AST ALT Alkaline Phosphatase Total Protein Albumin Globulin Albumin/Globulin Ratio 06/12/18 06/12/18 06/12/18 04:20 04:20 06:12 WBC 8.6 RBC 4.05 Hgb 11.3 L Hct 35.3 MCV 87.1 MCH 28.0 MCHC 32.2 L RDW 17.8 H Plt Count 236 MPV 11.5 Neut % (Auto) 62.6 Lymph % (Auto) 25.8 Moca % (Auto) 5.4 Eos % (Auto) 5.5 H Baso % (Auto) 0.7 Neut # (Auto) 5.4 Lymph # (Auto) 2.2 Moca # (Auto) 0.5 Eos # (Auto) 0.5 Baso # (Auto) 0.1 ESR Sodium 142 Potassium 3.5 L Chloride 113 H Carbon Dioxide 27 Anion Gap 6 L BUN 11 Creatinine 0.9 Est GFR ( Amer) > 60 Est GFR (Non-Af Amer) > 60 POC Glucose (mg/dL) 76 Random Glucose 79 Calcium 8.6 Total Bilirubin AST ALT Alkaline Phosphatase Total Protein Albumin Globulin Albumin/Globulin Ratio 06/12/18 06/12/18 06/12/18 11:09 16:52 20:58 WBC RBC Hgb Hct MCV MCH MCHC RDW Plt Count MPV Neut % (Auto) Lymph % (Auto) Moca % (Auto) Eos % (Auto) Baso % (Auto) Neut # (Auto) Lymph # (Auto) Moca # (Auto) Eos # (Auto) Baso # (Auto) ESR Sodium Potassium Chloride Carbon Dioxide Anion Gap BUN Creatinine Est GFR ( Amer) Est GFR (Non-Af Amer) POC Glucose (mg/dL) 110 82 110 Random Glucose Calcium Total Bilirubin AST ALT Alkaline Phosphatase Total Protein Albumin Globulin Albumin/Globulin Ratio 06/13/18 06/13/18 06/13/18 04:45 04:45 06:26 WBC 9.4 RBC 3.96 Hgb 11.2 L Hct 34.6 MCV 87.4 MCH 28.3 MCHC 32.4 L RDW 17.5 H Plt Count 242 MPV 11.4 Neut % (Auto) 63.7 Lymph % (Auto) 24.7 Moca % (Auto) 6.7 Eos % (Auto) 4.3 H Baso % (Auto) 0.6 Neut # (Auto) 6.0 Lymph # (Auto) 2.3 Moca # (Auto) 0.6 Eos # (Auto) 0.4 Baso # (Auto) 0.1 ESR Sodium 140 Potassium 3.7 Chloride 113 H Carbon Dioxide 22 Anion Gap 9 L BUN 11 Creatinine 1.0 Est GFR ( Amer) > 60 Est GFR (Non-Af Amer) 56 POC Glucose (mg/dL) 92 Random Glucose 87 Calcium 8.3 L Total Bilirubin 0.1 L AST 17 ALT 23 Alkaline Phosphatase 96 Total Protein 6.0 L Albumin 2.6 L Globulin 3.4 Albumin/Globulin Ratio 0.8 L 06/13/18 15:32 WBC RBC Hgb Hct MCV MCH MCHC RDW Plt Count MPV Neut % (Auto) Lymph % (Auto) Moca % (Auto) Eos % (Auto) Baso % (Auto) Neut # (Auto) Lymph # (Auto) Moca # (Auto) Eos # (Auto) Baso # (Auto) ESR Sodium Potassium Chloride Carbon Dioxide Anion Gap BUN Creatinine Est GFR ( Amer) Est GFR (Non-Af Amer) POC Glucose (mg/dL) 160 H Random Glucose Calcium Total Bilirubin AST ALT Alkaline Phosphatase Total Protein Albumin Globulin Albumin/Globulin Ratio Microbiology 06/09/18 15:05 Blood Blood Culture - Preliminary NO GROWTH AFTER 4 DAYS 06/09/18 15:20 Blood Blood Culture - Preliminary NO GROWTH AFTER 4 DAYS 06/10/18 05:00 Naris MRSA Culture (Admit) - Final MRSA DETECTED 06/09/18 18:34 Urine,Catheterized Urine Culture - Final No Growth (<1,000 CFU/ML) Assessment and Plan (1) Non-healing wound of left heel Status: Acute (2) Status post below knee amputation of right lower extremity Status: Acute (3) Diabetes Status: Acute (4) Intertrigo Status: Acute (5) Intertrigo Status: Acute - Assessment and Plan (Free Text) Assessment: A/P- 62 year old female with multiple medical conditions including DM II, CAd, HTN, h/o OM of right leg s/p right leg BKA, left heel nonhealing diabetic wound s/p debridement at [facility] a month ago has been on IV abx for pseudomoal infection of the left heel wound for past month as per Id doc at the other hospital who is now admitted for ? syncopal epsiode . she remains afebrile minimal leukocytosis has resolved. extensive intertrigo b/l groin/axailla, gluteal and Under b/l breast improving. MRSA on nasal screening blood cx- neg x 2 urien cx- neg high ESR Plan- advise to continue with IV cefepime as pt. has responded well to this for the treatment of the left heel pseudomonas infection. ? OM has been on this for the past 4 weeks already. advise to continue to apply nystatin powder along with clotrimazole ointment to affected areas . await vascular consult recs. All labs and imaging and notes reviewed.
[2018-06-13] MEDS: Mupirocin 2% Cream TOP SCH (16:32)
[2018-06-13] MEDS: Bacitracin 500 Units/gm Oint Foilpak UD TOP SCH (23:45)
--- NOTE | 2018-06-14 00:03 | PN ---
DATE: 06/13/2018 DAILY PROGRESS NOTE SUBJECTIVE: The patient is seen today, 06/13/2018. She is complaining of burning pain in the suprapubic area as well as in the gluteal areas and lower back. PHYSICAL EXAMINATION: VITAL SIGNS: Blood pressure 168/82, temperature 98, respiratory rate 20, and pulse 62. HEENT: Pupils equal and reactive to light. Normal-appearing mucosa of the conjunctivae. Positive blindness of the left eye. NECK: Supple. No JVD. No carotid bruit. No lymph node. No thyromegaly. CHEST AND LUNGS: Bilateral symmetrical expansion. Good air exchange. No rales. No rhonchi. CARDIOVASCULAR SYSTEM: PMI not localized. S1 and S2. No additional sounds. ABDOMEN: Normoactive bowel sounds. No tenderness. No organomegaly. No masses. EXTREMITIES: There is right BKA and left foot ulcer. SKIN: Suprapubic area, there are chronic skin changes with scales and suggestive of chronic fungal infection. ASSESSMENT: 1. Status post fall with possible syncope secondary to symptomatic bradycardia due to beta blockers. 2. Infected left foot (diabetic foot), on Maxipime. 3. 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 4. Type 2 diabetes mellitus. 5. Hypertension. PLAN: We will start the patient topical antifungal treatment. Continue the antibiotics. Follow vascular study that was done and interventional vascular specialist recommendations. Cyndie Orellana MD
[2018-06-14] MEDS ORDERED: Naloxone 0.4 mg/ml Inj (Adult) IVP ONE (01:43)
[2018-06-14] MEDS ORDERED: Naloxone 0.4 mg/ml Inj (Adult) IVP STA (01:52)
[2018-06-14 02:01] LABS: VENOUS BLOOD GAS PCO2 40 mmHg (40-60); VENOUS BLOOD GAS PO2 38 mm/Hg (30-55); VENOUS BLOOD PH 7.37 (7.32-7.43)
[2018-06-14 02:02] LABS: HEMOGLOBIN 10.8 g/dL (12.0-16.0); MEAN CELL VOLUME 86.4 fl (81.0-99.0); MEAN CORPUSCULAR HEMOGLOBIN 28.5 pg (27.0-31.0); RBC 3.8 Mil/uL (3.80-5.20); RED CELL DISTRIBUTION WIDTH 16.9 % (11.5-14.5); WHITE BLOOD COUNT 8.4 K/uL (4.8-10.8)
[2018-06-14 02:08] LABS: INR 1.6; PROTHROMBIN TIME 17.8 Seconds (9.8-13.1)
[2018-06-14 02:13] LABS: ALB/GLOB RATIO 0.7 (1.0-2.1); ALBUMIN 2.5 g/dL (3.5-5.0); ALT/SGPT 10 U/L (9-52); AST/SGOT 15 U/L (14-36); BLOOD UREA NITROGEN 14 mg/dl (7-17); CALCIUM 8.3 mg/dL (8.4-10.2); GFR NON-AFRICAN AMERICAN 56
--- NOTE | 2018-06-14 02:21 | PCM.RRT ---
<Thea Grubbs - Last Filed: 06/14/18 02:51> PROSTHETIST Nurse Assessment - Situation PROSTHETIST Responder Arrival Time: 12:06 Location: [facility] Room Number: 659 PROSTHETIST Reason for Call: Change in Mental Status PROSTHETIST Called By: RN - Respiratory Oxygen Delivery Method: Room Air - Diagnostic Test Ordered EKG: Yes (1:55am: 1st degree AVB, sinus rhythm, unchanged from previous) Chest X-Ray: No CT Scan: Yes (pending) - Stat Labs Ordered PROSTHETIST Stat Labs Ordered: CBC, BMP, PT/PTT, TROPONIN, LACTIC ACID PROSTHETIST Other Labs Ordered: VBG, prolactin CPR started during PROSTHETIST?: No - Recommendations PROSTHETIST Level of Care Recommendations: Transfer to Telemetry I.Reason for PROSTHETIST - A) Acute Change in Patient: (Select all that apply): Staff member or family is worried about patient, Acute change in mental status - Constitutional Appears: Non-toxic - Head Head Exam: ATRAUMATIC - Eyes Eye Exam: Normal appearance - Respiratory Exam Respiratory Exam: NORMAL BREATHING PATTERN - Cardiovascular Exam Cardiovascular Exam: REGULAR RHYTHM - Neurological Exam Neurological Exam: Altered. absent: Oriented x3 Plan - Assessment of Findings&Treatment Plan PROSTHETIST Time: 1:20 am 06/14 PROSTHETIST Location: Room 659 PROSTHETIST Arrival: 1:22 am 06/14 PROSTHETIST Reason: Nurse noticed acute altered mental status in patient S: Patient received morphine 2mg @ 12:13am and was at baseline prior. Nurse noticed bedside patient had an acute alteration of mental status - lethargic and unresponsive to verbal commands. O: PROSTHETIST Vitals: Arrival T: 98.3F BP: 185/72 HR: 65 RR: 20 Glucose: 149 General: Lethargic, non-responsive to verbal commands, responds to sternal rub HEENT: pupils reactive to light, patient legally blind Cardiac: RRR, EKG shows 1 degree AV block, sinus rhythm, unchanged since previous Resp: no labored breathing, no respiratory distress Extremities: no motor deficit, strength intact bilaterally A/P: 62-year-old woman with a past medical history of CAD, Dementia, Diabetes, Deep Vein Thrombosis, GERD, HTN, Chronic Kidney Disease, neuropathy, legally blind, recently treated osteomyelitis diabetic foot, and right lower extremity BKA was admitted on 06/09 (5 days prior to PROSTHETIST) for AMS/syncopal episode at home. She is currently receiving IV cefepime via PICC for treatment of a left heel pseudomonas infection (4 weeks completed). Earlier this evening she was alert and oriented x2 (as per RN) prior to the 2mg morphine she received at 12:13am. Nurse noticed shortly after that patient was lethargic and unresponsive and called PROSTHETIST at 1:20am. Upon arrival patient was responsive only to sternal rub until 1:32 when she became slightly more awake but still unable to answer questions. Narcan 0.4 mg given at 1:44am which made her more alert but still unable to answer any questions. Patient then complained of chest pain and an EKG was ordered STAT; showed no change from previous (1d AVB, sinus rhythm). Second dose of Narcan 0.4mg was given at 1:56am. Patient did not deteriorate any further and although was alert still remained oriented x0 and not at mental baseline. Able to answer minimal questions, continuously repeated that she wants to go home. No focal deficits noted. Patient strength and movement remained intact, at baseline. PROSTHETIST intervention: -Narcan 0.4mg 1:44 am -EKG 1:55 am -Narcan 0.4mg 1:56 am -CBC, CMP, CoAg, PT/INR, Troponin I, VBG, Prolactin -CT head with contrast pending -Transfer to telemetry for continuous monitoring -Aspiration precautions -EEG in am PROSTHETIST Outcome: Patient remained vitally stable throughout PROSTHETIST. She is improved since PROSTHETIST arrival but not yet back to baseline (as per RN). Alert, but not oriented. Not clear that morphine was cause of AMS as patient did not return to baseline after Narcan (2x 0.[address] CT head pending. EEG to be completed in am. Patient being transferred to telemetry for constant monitoring. Aspiration precautions. Follow up labs (CBC, CMP, CoAg, PT/INR, Troponin I, VBG, Prolactin) PROSTHETIST vitals: End: BP: 172/102 HR: 65 RR: 20 PROSTHETIST end: 2:05 am PROSTHETIST Leader: Dr. Quinn Romero MD PROSTHETIST residents: Dr. Pryor, Dr. Grubbs <Quinn Romero P - Last Filed: 06/14/18 07:03> PROSTHETIST Nurse Assessment - Vital Signs Vital Signs: Rapid Response Vital Sign Blood Pressure 172/102 Pulse Rate 63 Respiratory Rate 25 Temperature 98.2 F Oxygen Saturation 100 - Vital Signs at end of PROSTHETIST Vital Signs at end of PROSTHETIST: Rapid Response End Vital Sign Blood Pressure 184/62 Pulse Rate 64 Respiratory Rate 14 Temperature 98.4 F O2 Sat by Pulse Oximetry 100 Attending/Attestation - Attestation I have personally seen and examined this patient.: Yes I have fully participated in the care of the patient.: Yes I have reviewed all pertinent clinical information, including history, physical exam and plan: Yes Notes (Text): 06/14/18 06:59 Agree with above note, CT head reviewed by me no acute changes, suspect seizure activity, prolactin, EEG ordered, a posterior circulation evaluation may also be indicated, clinically unlikely form the morphine as no clear reversal with norcan. Patient already had neurology on consult would be notified by nursing in the morning, suspect similar event happened at home as cause of presentation.
[2018-06-14] MEDS: Sodium Chloride 0.9% 1,000 ML IV SCH (02:30)
--- NOTE | 2018-06-14 06:48 | CP.PCM.PN ---
<Dima Nieto - Last Filed: 06/14/18 11:27> Subjective - Date & Time of Evaluation Date of Evaluation: 06/14/18 Time of Evaluation: 11:27 - Subjective Subjective: Podiatry progress note for Dr. Houston 62 y/o F patient seen and evaluated at the bedside for left heel ulcer. Patient still confused but her level of consciousness s getting better. Patient states that she has some leg pain today. Patient denies any pain in her heel ulceration. Patient denies any other pedal complaint at this time. Patient is currently on 6 weeks of IV ABx for her left foot acute OM and has a PICC line. Patient denies any overnight N/V/F/C or SOB. Patient transferred from ICU to the floor. Objective - Vital Signs/Intake and Output Vital Signs (last 24 hours): Temp Pulse Resp BP Pulse Ox 98.1 F 63 20 157/69 H 99 06/14/18 05:25 06/14/18 05:25 06/14/18 05:25 06/14/18 05:25 06/14/18 05:25 Intake and Output: 06/13/18 06/14/18 18:59 06:59 Intake Total 880 Output Total 900 Balance -20 - Medications Medications: Current Medications Apixaban (Eliquis) 5 mg PO Q12 [facility]; Protocol Last Admin: 06/13/18 21:20 Dose: 5 mg Aspirin (Aspirin Chewable) 81 mg PO DAILY [facility] Last Admin: 06/13/18 08:31 Dose: 81 mg Atorvastatin Calcium (Lipitor) 10 mg PO HS [facility] Last Admin: 06/13/18 21:20 Dose: 10 mg Bacitracin (Bacitracin) 1 ea TOP TID [facility] Last Admin: 06/13/18 23:45 Dose: 1 ea Donepezil HCl (Aricept) 10 mg PO DAILY [facility] Last Admin: 06/13/18 08:31 Dose: 10 mg Famotidine (Pepcid) 20 mg PO DAILY [facility] Last Admin: 06/13/18 08:39 Dose: 20 mg Gabapentin (Neurontin) 400 mg PO Q8H [facility] Last Admin: 06/13/18 23:46 Dose: 400 mg Home Med (Cyclosporine [Restasis]) 1 drop EACHEYE Q12 [facility] Last Admin: 06/13/18 21:19 Dose: 1 drop Sodium Chloride (Sodium Chloride 0.9%) 1,000 mls @ 100 mls/hr IV .Q10H [facility] Last Admin: 06/14/18 02:30 Dose: 100 mls/hr Cefepime HCl 1 gm/ Sodium (Chloride) 100 mls @ 100 mls/hr IVPB Q12 [facility]; Protocol Last Admin: 06/13/18 21:33 Dose: 100 mls/hr Insulin Detemir (Levemir) 20 units SC QAM [facility] Last Admin: 06/13/18 08:34 Dose: Not Given Insulin Detemir (Levemir) 30 units SC HS [facility] Last Admin: 06/13/18 22:39 Dose: 30 units Insulin Human Lispro (Humalog) 0 units SC ACHS [facility]; Protocol Last Admin: 06/13/18 22:31 Dose: Not Given Lactobacillus Acidophilus (Bacid Acidophilus) 1 cap PO DAILY [facility] Last Admin: 06/13/18 08:39 Dose: 1 cap Losartan Potassium (Cozaar) 100 mg PO DAILY [facility] Last Admin: 06/13/18 08:32 Dose: 100 mg Morphine Sulfate (Morphine) 2 mg IVP Q4 PRN PRN Reason: Pain, severe (8-10) Last Admin: 06/14/18 00:10 Dose: 2 mg Mupirocin (Bactroban Cream) 1 applic TOP BID [facility] Last Admin: 06/13/18 16:32 Dose: Not Given Mupirocin (Bactroban Ointment) 1 applic TOP BID [facility] Stop: 06/14/18 09:01 Last Admin: 06/13/18 16:35 Dose: 1 applic Nystatin (Nystop Topical Powder) 1 applic TOP TID [facility] Last Admin: 06/13/18 16:34 Dose: 1 applic Potassium Chloride (Klor-Con 10) 10 meq PO DAILY [facility] Last Admin: 06/13/18 08:34 Dose: 10 meq - Labs Labs: 06/14/18 01:50 06/14/18 01:50 PT 17.8 Seconds (9.8-13.1) H 06/14/18 01:50 INR 1.6 06/14/18 01:50 APTT 36.4 Seconds (25.6-37.1) 06/09/18 15:35 - Constitutional Appears: Non-toxic - Head Exam Head Exam: ATRAUMATIC, NORMOCEPHALIC - Extremities Exam Additional comments: Left LE focused exam, R LE BKA Vasc: DP/PT pulses faintly palpable 1/4. Temp gradient warm to cool from proximal to distal. Cap refill < 3 seconds to all digits. No edema or erythema noted. Neuro: Protective sensation grossly diminished. Derm: Approximatly 2.8 cm x 2 cm X0.2 cm Oval ulceration noted to plantar/posterior left heel. Wound have fibrous and granular base 70:30. Positive probe to bone. no malodor. No drainage. No tracking, tunneling or undermining appreciated. No erythema MSK: Rigid contractures of all digits 1-5. Limited ROM at all major joints and diffuse arthritic changes. Muscle power 5/5 in all groups. No pain on palpating the abby-ulcerative area. - Neurological Exam Neurological Exam: Awake Assessment and Plan - Assessment and Plan (Free Text) Assessment: 62 y/o F patient seen and evaluated for an ulcer of the L heel Plan: Patient seen and evaluated at the bedside. Plan discussed with Dr. Houston. Charts, Labs and vitals reviewed: Afebrile, WBC 8.4 LE MRI (05/02): possible early acute and or developing acute osteomyelitis with possible underlying cellulitis Multipodus boot to be worn at all times while in bed Wound dressed with bactroban, DSD No plan for surgical intervention at this time.+ Vascular are onboard, Recommendations appreciated. CTA abdomen and LE: atent abd aorta. Iliacs patient with mild to moderate atherosclerotic changes. Moderta arterial disease proximal and midsegment in SFA, SeveModerated to sever distal segment. Mild to moderated distal poplital A disease. 2 vessel L LE runoff with perineal occluded at the midsegment Patient to follow up with Dr. Houston in his office upon discharge. Podiatry will continue to follow while patient in house. <Angel Houston - Last Filed: 06/15/18 08:49> Objective - Vital Signs/Intake and Output Vital Signs (last 24 hours): Temp Pulse Resp BP Pulse Ox 98.2 F 67 20 155/80 H 100 06/15/18 08:13 06/15/18 08:13 06/15/18 08:13 06/15/18 08:13 06/15/18 08:13 - Medications Medications: Current Medications Apixaban (Eliquis) 5 mg PO Q12 [facility]; Protocol Last Admin: 06/14/18 21:13 Dose: 5 mg Aspirin (Aspirin Chewable) 81 mg PO DAILY [facility] Last Admin: 06/14/18 09:31 Dose: 81 mg Atorvastatin Calcium (Lipitor) 10 mg PO HS [facility] Last Admin: 06/14/18 21:17 Dose: 10 mg Bacitracin (Bacitracin) 1 ea TOP TID [facility] Last Admin: 06/14/18 16:36 Dose: 1 ea Donepezil HCl (Aricept) 10 mg PO DAILY [facility] Last Admin: 06/14/18 09:31 Dose: 10 mg Famotidine (Pepcid) 20 mg PO DAILY [facility] Last Admin: 06/14/18 09:37 Dose: 20 mg Gabapentin (Neurontin) 400 mg PO Q8H [facility] Last Admin: 06/15/18 00:47 Dose: 400 mg Home Med (Cyclosporine [Restasis]) 1 drop EACHEYE Q12 [facility] Last Admin: 06/14/18 21:12 Dose: 1 drop Sodium Chloride (Sodium Chloride 0.9%) 1,000 mls @ 100 mls/hr IV .Q10H [facility] Last Admin: 06/14/18 02:30 Dose: 100 mls/hr Cefepime HCl 1 gm/ Sodium (Chloride) 100 mls @ 100 mls/hr IVPB Q12 [facility]; Protocol Last Admin: 06/14/18 21:12 Dose: 100 mls/hr Insulin Detemir (Levemir) 20 units SC QAM [facility] Last Admin: 06/14/18 09:34 Dose: Not Given Insulin Detemir (Levemir) 30 units SC HS [facility] Last Admin: 06/14/18 21:49 Dose: 30 units Insulin Human Lispro (Humalog) 0 units SC ACHS [facility]; Protocol Last Admin: 06/14/18 21:51 Dose: Not Given Lactobacillus Acidophilus (Bacid Acidophilus) 1 cap PO DAILY [facility] Last Admin: 06/14/18 09:31 Dose: 1 cap Losartan Potassium (Cozaar) 100 mg PO DAILY [facility] Last Admin: 06/14/18 09:32 Dose: 100 mg Mupirocin (Bactroban Ointment) 1 applic TOP BID [facility] Last Admin: 06/14/18 16:36 Dose: 1 applic Nystatin (Nystop Topical Powder) 1 applic TOP TID [facility] Last Admin: 06/14/18 16:38 Dose: 1 applic Potassium Chloride (Klor-Con 10) 10 meq PO DAILY [facility] Last Admin: 06/14/18 09:33 Dose: 10 meq - Labs Labs: 06/15/18 05:19 06/15/18 05:19 PT 17.8 Seconds (9.8-13.1) H 06/14/18 01:50 INR 1.6 06/14/18 01:50 APTT 36.4 Seconds (25.6-37.1) 06/09/18 15:35 Assessment and Plan - Assessment and Plan (Free Text) Plan: patient seen at bedside with resident .agree with above findings. We wll follow for local wound care at bedside /Dr Payton Houston 06/14/18
[2018-06-14] MEDS: Insulin Lispro (humaLOG) 100 Units/ml Inj SC SCH ×4 (07:35→21:51)
--- NOTE | 2018-06-14 08:02 | CT ---
Date of service: 06/14/2018 PROCEDURE: CT HEAD WITHOUT CONTRAST. HISTORY: ams COMPARISON: 06/09/2018 TECHNIQUE: Axial computed tomography images were obtained through the head/brain without intravenous contrast. Radiation dose: Total exam DLP = 890 mGy-cm. This CT exam was performed using one or more of the following dose reduction techniques: Automated exposure control, adjustment of the mA and/or kV according to patient size, and/or use of iterative reconstruction technique. FINDINGS: HEMORRHAGE: No intracranial hemorrhage. BRAIN: No mass effect or edema. Mild diffuse atrophy. Moderate patchy and confluent periventricular and deep/subcortical white matter lucency consistent with microvascular ischemic change. Old bilateral basal ganglia lacunar infarcts. Old bilateral thalamic lacunar infarcts. Old left cerebellar hemispheric infarct. No interval change here noted VENTRICLES: Unremarkable. No hydrocephalus. CALVARIUM: Unremarkable. PARANASAL SINUSES: Unremarkable as visualized. No significant inflammatory changes. MASTOID AIR CELLS: Unremarkable as visualized. No inflammatory changes. OTHER FINDINGS: None. IMPRESSION: No interval mass effect or hemorrhage. Prior findings listed below are all similar: Mild diffuse atrophy. Moderate patchy and confluent periventricular and deep/subcortical white matter lucency consistent with microvascular ischemic change. Old bilateral basal ganglia lacunar infarcts. Old bilateral thalamic lacunar infarcts. Old left cerebellar hemispheric infarct. No interval pathology noted
--- NOTE | 2018-06-14 08:05 | PN ---
DATE: 06/13/2018 SUBJECTIVE: The patient has no reported bradyarrhythmia. She denies any dizziness or chest pain. PHYSICAL EXAMINATION: VITAL SIGNS: Blood pressure 151/55, heart rate 83, temperature 98.5, and respiration 16. HEENT: Normocephalic. CHEST: Clear. HEART: S1, S2, regular. EXTREMITIES: Right below-knee amputation and dressings applied to the left heel ulcer. LABORATORY DATA: Today's hemoglobin and hematocrit are 11.2 and 34.6, white count and platelet count are within normal limits. SMA-7: Sodium 140, potassium 3.7, chloride 113, CO2 of 22, glucose 87, BUN 11, and creatinine 1. Abdominal angiography revealed widely patent abdominal aorta and bilateral iliac arteries with [id number] atherosclerotic changes, partially calcified. Moderate arterial disease, right superficial femoral artery and mid segment with moderate to severe distal disease, only patent popliteal artery up to the below-knee amputation, mild arterial disease left superficial femoral artery with vessel patent through it's junction with popliteal artery, [id number] proximal and [id number] distal popliteal artery stenosis, two-vessel left lower extremity runoff with cranially occluded at it's mid segment. ASSESSMENT: 1. Symptomatic bradycardia, most likely atherogenic. The patient is currently off beta blockers and no recurrence of bradycardia. 2. Peripheral vascular disease. 3. Chronic left heel ulcer. 4. Status post right below-knee amputation. RECOMMENDATIONS: Continue current aspirin 81 mg once a day, IV cefepime at 1 g every 12 hours, Cozaar 100 mg once a day, Eliquis 5 mg twice a day. The patient can be transferred to [facility] from the cardiac point. Tommy Willett MD
[2018-06-14] MEDS: Lactobacillus Acidophilus 500 MU Cap PO SCH (09:31)
[2018-06-14] MEDS: Bacitracin 500 Units/gm Oint Foilpak UD TOP SCH ×3 (09:31→16:36)
[2018-06-14] MEDS: Patient's Own Med (Cyclosporine [Restasis] 1 DROP) EACHEYE SCH ×2 (09:32→21:12)
[2018-06-14] MEDS: Potassium Chloride 10 mEq ER Tab PO SCH (09:33)
[2018-06-14] MEDS: Insulin Detemir 100 Units/ml Inj SC SCH ×2 (09:34→21:49)
[2018-06-14] MEDS: Cefepime 1 GM in Sodium Chloride 0.9% 100 ML IVPB SCH ×2 (13:07→21:12)
--- NOTE | 2018-06-14 13:51 | CARD ---
APPROVED REPORT Date of service: 06/14/2018 EKG Measurement Heart [id number] <Conclusion> Sinus rhythm with 1st degree AV block Otherwise normal ECG
--- NOTE | 2018-06-14 19:31 | PN ---
DATE: 06/14/2018 SUBJECTIVE: The patient denies any chest pain, dizziness, or shortness of breath. No reported tachycardia. PHYSICAL EXAMINATION: VITAL SIGNS: Blood pressure , heart rate 95, temperature 97.7, respirations 20. HEENT: Normocephalic. CHEST: Clear. HEART: S1 and S2 regular. EXTREMITIES: Right below-knee amputation and dressing is applied to the left heel ulcer. LABORATORY DATA: Today's blood sugars are 106, 71, and 86 respectively. The blood sugar on the SMA-7 today was 155, chloride 111, and carbon dioxide 21. The rest of BMP was within normal limits. Calcium was below normal at 8.3. Today head CT scan performed revealed no . ASSESSMENT: 1. Status post syncopal episode. 2. Documented high-grade atrioventricular block on admission, most likely iatrogenic and no recurrence. 3. Uncontrolled diabetes mellitus. 4. Peripheral vascular disease, status post right below-knee amputation. 5. Chronic left heel ulcer. 6. Mild anemia. RECOMMENDATIONS: Continue current Aricept 10 mg once a day, Lactobacillus one tablet daily, IV cefepime 1 g every 12 hours, Cozaar 100 mg once a day, Eliquis 5 mg twice a day, Lipitor 10 mg once a day, Neurontin 400 mg every 8 hours, nystatin topical powder for widespread skin fungal infection. Tommy Wileltt MD
--- NOTE | 2018-06-15 02:42 | PN ---
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 The patient was transferred from med/surg floor to telemetry floor. PHYSICAL EXAMINATION: VITAL SIGNS: Blood pressure was 172/102 that came down during the course of the day to 161/69, temperature 98.4, respiratory rate 20, and pulse 61. HEENT: The patient has blindness in the left eye. NECK: Supple. No JVD. No carotid bruits. No lymph node. No thyromegaly. CHEST AND LUNGS: Bilateral symmetrical expansion. Good air exchange. No rales. No rhonchi. CARDIOVASCULAR SYSTEM: PMI not localized. S1 and S2. No additional sounds. ABDOMEN: Normoactive bowel sounds. No tenderness. No organomegaly. No masses. There are chronic skin changes in the suprapubic area as well as lower back area. EXTREMITIES: Right BKA and left foot ulcer. CENTRAL NERVOUS SYSTEM: The patient is awake but lethargic and moves all extremities equally. DIAGNOSTIC DATA: CAT scan of the head done that did not show any acute infarction. ASSESSMENT: 1. Acute change of mental status, likely secondary to pain medication side effects. 2. Hypertension. 3. Diabetic foot with infected ulcer, currently on antibiotics. 4. Complicated type 2 diabetes mellitus. 5. Uncontrolled hypertension. PLAN: Adjust antihypertensive medication. Continue current IV antibiotics. Monitor on telemetry. Follow with Infectious Disease. Neurology consult. Cyndie Orellana MD
[2018-06-15 05:28] LABS: HEMOGLOBIN 10.2 g/dL (12.0-16.0); MEAN CELL VOLUME 87.4 fl (81.0-99.0); MEAN CORPUSCULAR HEMOGLOBIN 28.9 pg (27.0-31.0); RBC 3.55 Mil/uL (3.80-5.20); RED CELL DISTRIBUTION WIDTH 17.2 % (11.5-14.5); WHITE BLOOD COUNT 7.3 K/uL (4.8-10.8)
[2018-06-15 05:50] LABS: BLOOD UREA NITROGEN 11 mg/dl (7-17); CALCIUM 7.8 mg/dL (8.4-10.2); GFR NON-AFRICAN AMERICAN > 60
--- NOTE | 2018-06-15 07:15 | CP.PCM.PN ---
Subjective - Date & Time of Evaluation Date of Evaluation: 06/15/18 Time of Evaluation: 10:07 - Subjective Subjective: Podiatry progress note for Dr. Houston 62 y/o F patient seen and evaluated at the bedside for left heel ulcer. Patient still confused but her level of consciousness s getting better. Patient states that she didn't have any overnight leg pain. Patient denies any pain in her heel ulceration. Patient denies any other pedal complaint at this time. Patient is currently on 6 weeks of IV ABx for her left foot acute OM and has a PICC line. Patient denies any overnight N/V/F/C or SOB. Patient transferred from ICU to the floor. Objective - Vital Signs/Intake and Output Vital Signs (last 24 hours): Temp Pulse Resp BP Pulse Ox 98.9 F 70 16 164/80 H 100 06/15/18 06:14 06/15/18 06:14 06/15/18 06:14 06/15/18 06:14 06/15/18 06:14 - Medications Medications: Current Medications Apixaban (Eliquis) 5 mg PO Q12 [facility]; Protocol Last Admin: 06/14/18 21:13 Dose: 5 mg Aspirin (Aspirin Chewable) 81 mg PO DAILY [facility] Last Admin: 06/14/18 09:31 Dose: 81 mg Atorvastatin Calcium (Lipitor) 10 mg PO HS [facility] Last Admin: 06/14/18 21:17 Dose: 10 mg Bacitracin (Bacitracin) 1 ea TOP TID [facility] Last Admin: 06/14/18 16:36 Dose: 1 ea Donepezil HCl (Aricept) 10 mg PO DAILY [facility] Last Admin: 06/14/18 09:31 Dose: 10 mg Famotidine (Pepcid) 20 mg PO DAILY [facility] Last Admin: 06/14/18 09:37 Dose: 20 mg Gabapentin (Neurontin) 400 mg PO Q8H [facility] Last Admin: 06/15/18 00:47 Dose: 400 mg Home Med (Cyclosporine [Restasis]) 1 drop EACHEYE Q12 [facility] Last Admin: 06/14/18 21:12 Dose: 1 drop Sodium Chloride (Sodium Chloride 0.9%) 1,000 mls @ 100 mls/hr IV .Q10H [facility] Last Admin: 06/14/18 02:30 Dose: 100 mls/hr Cefepime HCl 1 gm/ Sodium (Chloride) 100 mls @ 100 mls/hr IVPB Q12 [facility]; Protocol Last Admin: 06/14/18 21:12 Dose: 100 mls/hr Insulin Detemir (Levemir) 20 units SC QAM [facility] Last Admin: 06/14/18 09:34 Dose: Not Given Insulin Detemir (Levemir) 30 units SC HS [facility] Last Admin: 06/14/18 21:49 Dose: 30 units Insulin Human Lispro (Humalog) 0 units SC ACHS [facility]; Protocol Last Admin: 06/14/18 21:51 Dose: Not Given Lactobacillus Acidophilus (Bacid Acidophilus) 1 cap PO DAILY [facility] Last Admin: 06/14/18 09:31 Dose: 1 cap Losartan Potassium (Cozaar) 100 mg PO DAILY [facility] Last Admin: 06/14/18 09:32 Dose: 100 mg Mupirocin (Bactroban Ointment) 1 applic TOP BID [facility] Last Admin: 06/14/18 16:36 Dose: 1 applic Nystatin (Nystop Topical Powder) 1 applic TOP TID [facility] Last Admin: 06/14/18 16:38 Dose: 1 applic Potassium Chloride (Klor-Con 10) 10 meq PO DAILY [facility] Last Admin: 06/14/18 09:33 Dose: 10 meq - Labs Labs: 06/15/18 05:19 06/15/18 05:19 PT 17.8 Seconds (9.8-13.1) H 06/14/18 01:50 INR 1.6 06/14/18 01:50 APTT 36.4 Seconds (25.6-37.1) 06/09/18 15:35 - Constitutional Appears: Well, Non-toxic, No Acute Distress - Head Exam Head Exam: ATRAUMATIC, NORMOCEPHALIC - Extremities Exam Additional comments: Left LE focused exam, R LE BKA Vasc: DP/PT pulses faintly palpable 1/4. Temp gradient warm to cool from pro ximal to distal. Cap refill < 3 seconds to all digits. No edema or erythema noted. Neuro: Protective sensation grossly diminished. Derm: Approximatly 2.8 cm x 2 cm X0.2 cm Oval ulceration noted to p lantar/posterior left heel. Wound have fibrous and granular base 70:30. No probe to bone. no malodor. No drainage. No tracking, tunneling or undermining appreciated. No erythema MSK: Rigid contractures of all digits 1-5. Limited ROM at all major joints and diffuse arthritic changes. Muscle power 5/5 in all groups. No pain on palpating the abby-ulcerative area. - Neurological Exam Neurological Exam: Alert, Awake, Oriented x3 - Psychiatric Exam Psychiatric exam: Normal Affect, Normal Mood Assessment and Plan - Assessment and Plan (Free Text) Assessment: 62 y/o F patient seen and evaluated for an ulcer of the L heel Plan: Patient seen and evaluated at the bedside. Plan discussed with Dr. Houston. Charts, Labs and vitals reviewed: Afebrile, WBC 7.3 LE MRI (05/02): possible early acute and or developing acute osteomyelitis with p ossible underlying cellulitis Multipodus boot to be worn at all times while in bed Wound dressed with bactroban, DSD No plan for surgical intervention at this time. Vascular are onboard, Recommendations appreciated. CTA abdomen and LE: atent abd aorta. Iliacs patient with mild to moderate atherosclerotic changes. Moderta arterial disease proximal and midsegment in SFA, SeveModerated to sever distal segment. Mild to moderated distal poplital A disease. 2 vessel L LE runoff with perineal occluded at the midsegment Patient to follow up with Dr. Houston in his office upon discharge. Podiatry will continue to follow while patient in house.
[2018-06-15] MEDS: Bacitracin 500 Units/gm Oint Foilpak UD TOP SCH ×3 (09:00→16:51)
[2018-06-15] MEDS ORDERED: Potassium Chloride 20 mEq ER Tab PO SCH (09:30)
[2018-06-15] MEDS: Patient's Own Med (Cyclosporine [Restasis] 1 DROP) EACHEYE SCH ×2 (09:46→21:51)
[2018-06-15] MEDS: Insulin Lispro (humaLOG) 100 Units/ml Inj SC SCH ×4 (09:50→21:50)
[2018-06-15] MEDS: Insulin Detemir 100 Units/ml Inj SC SCH ×2 (09:52→21:48)
[2018-06-15] MEDS: Potassium Chloride 10 mEq ER Tab PO SCH (09:57)
[2018-06-15] MEDS: Cefepime 1 GM in Sodium Chloride 0.9% 100 ML IVPB SCH ×2 (09:58→21:47)
--- NOTE | 2018-06-15 11:40 | CP.PCM.PN ---
Subjective - Date & Time of Evaluation Date of Evaluation: 06/15/18 Time of Evaluation: 11:40 - Subjective Subjective: Id note- Pt. seen and examined today in tele floor. apparently pt. had regulator tester the other day for confusion. She does not recall this. currently she denies any complaints but as per nurse she is confused. Objective - Vital Signs/Intake and Output Vital Signs (last 24 hours): Temp Pulse Resp BP Pulse Ox 98.2 F 67 20 155/80 H 100 06/15/18 08:13 06/15/18 09:45 06/15/18 08:13 06/15/18 09:45 06/15/18 08:13 - Medications Medications: Current Medications Apixaban (Eliquis) 5 mg PO Q12 [facility]; Protocol Last Admin: 06/15/18 09:49 Dose: 5 mg Aspirin (Aspirin Chewable) 81 mg PO DAILY [facility] Last Admin: 06/15/18 09:44 Dose: 81 mg Atorvastatin Calcium (Lipitor) 10 mg PO HS [facility] Last Admin: 06/14/18 21:17 Dose: 10 mg Bacitracin (Bacitracin) 1 ea TOP TID [facility] Last Admin: 06/14/18 16:36 Dose: 1 ea Donepezil HCl (Aricept) 10 mg PO DAILY [facility] Last Admin: 06/15/18 09:44 Dose: 10 mg Famotidine (Pepcid) 20 mg PO DAILY [facility] Last Admin: 06/15/18 10:00 Dose: 20 mg Gabapentin (Neurontin) 400 mg PO Q8H [facility] Last Admin: 06/15/18 10:00 Dose: 400 mg Home Med (Cyclosporine [Restasis]) 1 drop EACHEYE Q12 [facility] Last Admin: 06/15/18 09:46 Dose: 1 drop Sodium Chloride (Sodium Chloride 0.9%) 1,000 mls @ 100 mls/hr IV .Q10H [facility] Last Admin: 06/14/18 02:30 Dose: 100 mls/hr Cefepime HCl 1 gm/ Sodium (Chloride) 100 mls @ 100 mls/hr IVPB Q12 [facility]; Protocol Last Admin: 06/15/18 09:58 Dose: 100 mls/hr Insulin Detemir (Levemir) 15 units SC HS [facility] Insulin Detemir (Levemir) 10 units SC QAM [facility] Insulin Human Lispro (Humalog) 0 units SC ACHS [facility]; Protocol Last Admin: 06/15/18 09:50 Dose: Not Given Lactobacillus Acidophilus (Bacid Acidophilus) 1 cap PO DAILY [facility] Last Admin: 06/14/18 09:31 Dose: 1 cap Losartan Potassium (Cozaar) 100 mg PO DAILY [facility] Last Admin: 06/15/18 09:45 Dose: 100 mg Mupirocin (Bactroban Ointment) 1 applic TOP BID [facility] Last Admin: 06/15/18 09:45 Dose: 1 applic Nystatin (Nystop Topical Powder) 1 applic TOP TID [facility] Last Admin: 06/15/18 09:53 Dose: 1 applic Potassium Chloride (Klor-Con 10) 10 meq PO DAILY [facility] Last Admin: 06/15/18 09:57 Dose: 10 meq Potassium Chloride (K-Dur 20 Meq Er Tab) 20 meq PO BID [facility] Last Admin: 06/15/18 09:56 Dose: 20 meq - Labs Labs: - Additional Findings Additional findings: - Constitutional Appears: No Acute Distress - Head Exam Head Exam: ATRAUMATIC - ENT Exam ENT Exam: Normal Oropharynx - Neck Exam Neck exam: Positive for: Full Rom - Respiratory Exam Respiratory Exam: Clear to Auscultation Bilateral, NORMAL BREATHING PATTERN - Cardiovascular Exam Cardiovascular Exam: RRR, +S1, +S2 - GI/Abdominal Exam GI & Abdominal Exam: Normal Bowel Sounds, Soft Additional comments: NT, ND - Extremities Exam Additional comments: Right BKA site clean/dry/Intact left heel about 4 x 6 cm wound without any malodor, minimal clear/discharge no surrounding erythema - Neurological Exam Neurological exam: Alert, Oriented x3 - Skin Additional comments: fungal rash under b/l breast and b/l groin region and b/l gluteus region and b/l axilla extensive but much less erythematous now and much less pruritic as per pt. (intertrigo) Laboratory Results - last 72 hr 06/12/18 06/12/18 06/12/18 11:09 16:52 20:58 WBC RBC Hgb Hct MCV MCH MCHC RDW Plt Count MPV Neut % (Auto) Lymph % (Auto) [place] % (Auto) Eos % (Auto) Baso % (Auto) Neut # (Auto) Lymph # (Auto) [place] # (Auto) Eos # (Auto) Baso # (Auto) PT INR pO2 VBG pH VBG pCO2 VBG HCO3 VBG Total CO2 VBG O2 Sat (Calc) VBG Base Excess VBG Potassium Glucose Lactate FiO2 Sodium Potassium Chloride Carbon Dioxide Anion Gap BUN Creatinine Est GFR ( Amer) Est GFR (Non-Af Amer) POC Glucose (mg/dL) 110 82 110 Random Glucose Lactic Acid Calcium Total Bilirubin AST ALT Alkaline Phosphatase Troponin I Total Protein Albumin Globulin Albumin/Globulin Ratio Prolactin Venous Blood Potassium 06/13/18 06/13/18 06/13/18 04:45 04:45 06:26 WBC 9.4 RBC 3.96 Hgb 11.2 L Hct 34.6 MCV 87.4 MCH 28.3 MCHC 32.4 L RDW 17.5 H Plt Count 242 MPV 11.4 Neut % (Auto) 63.7 Lymph % (Auto) 24.7 [place] % (Auto) 6.7 Eos % (Auto) 4.3 H Baso % (Auto) 0.6 Neut # (Auto) 6.0 Lymph # (Auto) 2.3 [place] # (Auto) 0.6 Eos # (Auto) 0.4 Baso # (Auto) 0.1 PT INR pO2 VBG pH VBG pCO2 VBG HCO3 VBG Total CO2 VBG O2 Sat (Calc) VBG Base Excess VBG Potassium Glucose Lactate FiO2 Sodium 140 Potassium 3.7 Chloride 113 H Carbon Dioxide 22 Anion Gap 9 L BUN 11 Creatinine 1.0 Est GFR ( Amer) > 60 Est GFR (Non-Af Amer) 56 POC Glucose (mg/dL) 92 Random Glucose 87 Lactic Acid Calcium 8.3 L Total Bilirubin 0.1 L AST 17 ALT 23 Alkaline Phosphatase 96 Troponin I Total Protein 6.0 L Albumin 2.6 L Globulin 3.4 Albumin/Globulin Ratio 0.8 L Prolactin Venous Blood Potassium 06/13/18 06/13/18 06/13/18 11:22 15:32 21:31 WBC RBC Hgb Hct MCV MCH MCHC RDW Plt Count MPV Neut % (Auto) Lymph % (Auto) [place] % (Auto) Eos % (Auto) Baso % (Auto) Neut # (Auto) Lymph # (Auto) [place] # (Auto) Eos # (Auto) Baso # (Auto) PT INR pO2 VBG pH VBG pCO2 VBG HCO3 VBG Total CO2 VBG O2 Sat (Calc) VBG Base Excess VBG Potassium Glucose Lactate FiO2 Sodium Potassium Chloride Carbon Dioxide Anion Gap BUN Creatinine Est GFR ( Amer) Est GFR (Non-Af Amer) POC Glucose (mg/dL) 162 H 160 H 191 H Random Glucose Lactic Acid Calcium Total Bilirubin AST ALT Alkaline Phosphatase Troponin I Total Protein Albumin Globulin Albumin/Globulin Ratio Prolactin Venous Blood Potassium 06/14/18 06/14/18 06/14/18 01:30 01:50 01:50 WBC 8.4 RBC 3.80 Hgb 10.8 L Hct 32.9 L MCV 86.4 MCH 28.5 MCHC 33.0 RDW 16.9 H Plt Count 211 MPV Neut % (Auto) Lymph % (Auto) [place] % (Auto) Eos % (Auto) Baso % (Auto) Neut # (Auto) Lymph # (Auto) [place] # (Auto) Eos # (Auto) Baso # (Auto) PT 17.8 H INR 1.6 pO2 VBG pH VBG pCO2 VBG HCO3 VBG Total CO2 VBG O2 Sat (Calc) VBG Base Excess VBG Potassium Glucose Lactate FiO2 Sodium Potassium Chloride Carbon Dioxide Anion Gap BUN Creatinine Est GFR ( Amer) Est GFR (Non-Af Amer) POC Glucose (mg/dL) 149 H Random Glucose Lactic Acid Calcium Total Bilirubin AST ALT Alkaline Phosphatase Troponin I Total Protein Albumin Globulin Albumin/Globulin Ratio Prolactin Venous Blood Potassium 06/14/18 06/14/18 06/14/18 01:50 01:50 01:58 WBC RBC Hgb Hct MCV MCH MCHC RDW Plt Count MPV Neut % (Auto) Lymph % (Auto) [place] % (Auto) Eos % (Auto) Baso % (Auto) Neut # (Auto) Lymph # (Auto) [place] # (Auto) Eos # (Auto) Baso # (Auto) PT INR pO2 38 VBG pH 7.37 VBG pCO2 40 VBG HCO3 22.6 VBG Total CO2 24.3 VBG O2 Sat (Calc) 78.6 H VBG Base Excess -2.0 L VBG Potassium 3.7 Glucose 155 H Lactate 0.9 FiO2 21.0 Sodium 138 139.0 Potassium 3.7 Chloride 111 H 111.0 H Carbon Dioxide 21 L Anion Gap 10 BUN 14 Creatinine 1.0 Est GFR ( Amer) > 60 Est GFR (Non-Af Amer) 56 POC Glucose (mg/dL) Random Glucose 155 H Lactic Acid 0.8 Calcium 8.3 L Total Bilirubin 0.2 AST 15 ALT 10 Alkaline Phosphatase 88 Troponin I < 0.0120 Total Protein 5.9 L Albumin 2.5 L Globulin 3.4 Albumin/Globulin Ratio 0.7 L Prolactin Venous Blood Potassium 3.7 06/14/18 06/14/18 06/14/18 06:03 06:52 12:17 WBC RBC Hgb Hct MCV MCH MCHC RDW Plt Count MPV Neut % (Auto) Lymph % (Auto) [place] % (Auto) Eos % (Auto) Baso % (Auto) Neut # (Auto) Lymph # (Auto) [place] # (Auto) Eos # (Auto) Baso # (Auto) PT INR pO2 VBG pH VBG pCO2 VBG HCO3 VBG Total CO2 VBG O2 Sat (Calc) VBG Base Excess VBG Potassium Glucose Lactate FiO2 Sodium Potassium Chloride Carbon Dioxide Anion Gap BUN Creatinine Est GFR ( Amer) Est GFR (Non-Af Amer) POC Glucose (mg/dL) 106 71 Random Glucose Lactic Acid Calcium Total Bilirubin AST ALT Alkaline Phosphatase Troponin I Total Protein Albumin Globulin Albumin/Globulin Ratio Prolactin 11.7 Venous Blood Potassium 06/14/18 06/14/18 06/14/18 13:16 16:08 21:40 WBC RBC Hgb Hct MCV MCH MCHC RDW Plt Count MPV Neut % (Auto) Lymph % (Auto) [place] % (Auto) Eos % (Auto) Baso % (Auto) Neut # (Auto) Lymph # (Auto) [place] # (Auto) Eos # (Auto) Baso # (Auto) PT INR pO2 VBG pH VBG pCO2 VBG HCO3 VBG Total CO2 VBG O2 Sat (Calc) VBG Base Excess VBG Potassium Glucose Lactate FiO2 Sodium Potassium Chloride Carbon Dioxide Anion Gap BUN Creatinine Est GFR ( Amer) Est GFR (Non-Af Amer) POC Glucose (mg/dL) 86 137 H 101 Random Glucose Lactic Acid Calcium Total Bilirubin AST ALT Alkaline Phosphatase Troponin I Total Protein Albumin Globulin Albumin/Globulin Ratio Prolactin Venous Blood Potassium 06/15/18 06/15/18 06/15/18 00:06 05:19 05:19 WBC 7.3 RBC 3.55 L Hgb 10.2 L Hct 31.0 L MCV 87.4 MCH 28.9 MCHC 33.0 RDW 17.2 H Plt Count 200 MPV Neut % (Auto) Lymph % (Auto) [place] % (Auto) Eos % (Auto) Baso % (Auto) Neut # (Auto) Lymph # (Auto) [place] # (Auto) Eos # (Auto) Baso # (Auto) PT INR pO2 VBG pH VBG pCO2 VBG HCO3 VBG Total CO2 VBG O2 Sat (Calc) VBG Base Excess VBG Potassium Glucose Lactate FiO2 Sodium 145 Potassium 3.1 L Chloride 120 H Carbon Dioxide 20 L Anion Gap 8 L BUN 11 Creatinine 0.8 Est GFR ( Amer) > 60 Est GFR (Non-Af Amer) > 60 POC Glucose (mg/dL) 100 Random Glucose 52 L Lactic Acid Calcium 7.8 L Total Bilirubin AST ALT Alkaline Phosphatase Troponin I Total Protein Albumin Globulin Albumin/Globulin Ratio Prolactin Venous Blood Potassium 06/15/18 06/15/18 06/15/18 05:42 06:40 10:58 WBC RBC Hgb Hct MCV MCH MCHC RDW Plt Count MPV Neut % (Auto) Lymph % (Auto) [place] % (Auto) Eos % (Auto) Baso % (Auto) Neut # (Auto) Lymph # (Auto) [place] # (Auto) Eos # (Auto) Baso # (Auto) PT INR pO2 VBG pH VBG pCO2 VBG HCO3 VBG Total CO2 VBG O2 Sat (Calc) VBG Base Excess VBG Potassium Glucose Lactate FiO2 Sodium Potassium Chloride Carbon Dioxide Anion Gap BUN Creatinine Est GFR ( Amer) Est GFR (Non-Af Amer) POC Glucose (mg/dL) 56 L 87 125 H Random Glucose Lactic Acid Calcium Total Bilirubin AST ALT Alkaline Phosphatase Troponin I Total Protein Albumin Globulin Albumin/Globulin Ratio Prolactin Venous Blood Potassium Microbiology 06/09/18 15:05 Blood Blood Culture - Final NO GROWTH AFTER 5 DAYS 06/09/18 15:05 Blood Gram Stain - Final TEST NOT PERFORMED 06/09/18 15:20 Blood Blood Culture - Final NO GROWTH AFTER 5 DAYS 06/09/18 15:20 Blood Gram Stain - Final TEST NOT PERFORMED 06/10/18 05:00 Naris MRSA Culture (Admit) - Final MRSA DETECTED 06/09/18 18:34 Urine,Catheterized Urine Culture - Final No Growth (<1,000 CFU/ML) Accession No. : [id number] Patient Name / ID : ZAN Austin / [id number] Exam Date : 06/14/2018 02:22:19 ( Addendum_Approved ) Study Comment : Sex / Age : F / 62Y Creator : fabiola dotson Dictator : Toña Cosby V. Utility Supervisor Boat [employer] Plant : Pipe Smoking Machine Operator : Toña Cosby V. Approver2 : Report Date : 06/14/2018 03:38:50 My Comment : ADDENDUM: Concordant results (preliminary interpretation) provided by [employer]. [ Addendum Report Added by Toña Cosby V. at 06/14/2018 08:03:14 ] Date of service: 06/14/2018 PROCEDURE: CT HEAD WITHOUT CONTRAST. HISTORY: ams COMPARISON: 06/09/2018 TECHNIQUE: Axial computed tomography images were obtained through the head/brain without intravenous contrast. Radiation dose: Total exam DLP = 890 mGy-cm. This CT exam was performed using one or more of the following dose reduction techniques: Automated exposure control, adjustment of the mA and/or kV according to patient size, and/or use of iterative reconstruction technique. FINDINGS: HEMORRHAGE: No intracranial hemorrhage. BRAIN: No mass effect or edema. Mild diffuse atrophy. Moderate patchy and confluent periventricular and deep/subcortical white matter lucency consistent with microvascular ischemic change. Old bilateral basal ganglia lacunar infarcts. Old bilateral thalamic lacunar infarcts. Old left cerebellar hemispheric infarct. No interval change here noted VENTRICLES: Unremarkable. No hydrocephalus. CALVARIUM: Unremarkable. PARANASAL SINUSES: Unremarkable as visualized. No significant inflammatory changes. MASTOID AIR CELLS: Unremarkable as visualized. No inflammatory changes. OTHER FINDINGS: None. IMPRESSION: No interval mass effect or hemorrhage. Prior findings listed below are all similar: Mild diffuse atrophy. Moderate patchy and confluent periventricular and deep/subcortical white matter lucency consistent with microvascular ischemic change. Old bilateral basal ganglia lacunar infarcts. Old bilateral thalamic lacunar infarcts. Old left cerebellar hemispheric infarct. No interval pathology noted Assessment and Plan (1) Non-healing wound of left heel Status: Acute (2) Status post below knee amputation of right lower extremity Status: Acute (3) Diabetes Status: Acute (4) Intertrigo Status: Acute (5) Intertrigo Status: Acute - Assessment and Plan (Free Text) Assessment: A/P- 62 year old female with multiple medical conditions including DM II, CAd, HTN, h/o OM of right leg s/p right leg BKA, left heel nonhealing diabetic wound s/p debridement at [facility] a month ago has been on IV abx for pseudomoal infection of the left heel wound for past month as per Id doc at the other hospital who is now admitted for ? syncopal epsiode . she remains afebrile minimal leukocytosis has resolved. extensive intertrigo b/l groin/axailla, gluteal and Under b/l breast improving. MRSA on nasal screening blood cx- neg x 2 urien cx- neg high ESR Plan- advise to continue with IV cefepime as pt. has responded well to this for the treatment of the left heel pseudomonas infection. ? OM has been on this for the past 4 weeks already at [facility] and also since admission here day #11. advise 7 more days of IV cefepime to complete total of 6 weeks. may need another MRI to see if the ? om has improved. f/u ESR as well. advise to continue to apply nystatin powder along with clotrimazole ointment to affected areas . All labs and imaging and notes reviewed.
[2018-06-15] MEDS: Lactobacillus Acidophilus 500 MU Cap PO SCH (13:12)
--- NOTE | 2018-06-15 14:03 | CP.PCM.PN ---
Subjective - Date & Time of Evaluation Date of Evaluation: 06/15/18 Time of Evaluation: 13:58 - Subjective Subjective: Mrs. Mcnair was seen and examined today at bedside. She was conversant and had no complaints. She did not recall the episode last night when she was found confused and lethargic. An CHIEF LOCK TENDER OPERATOR was called and she was given Narcan. She then improved gradually. CT head was unchanged. Objective - Vital Signs/Intake and Output Vital Signs (last 24 hours): Temp Pulse Resp BP Pulse Ox 98.1 F 64 20 174/84 H 100 06/15/18 13:00 06/15/18 13:00 06/15/18 13:00 06/15/18 13:00 06/15/18 13:00 - Medications Medications: Current Medications Apixaban (Eliquis) 5 mg PO Q12 [facility]; Protocol Last Admin: 06/15/18 09:49 Dose: 5 mg Aspirin (Aspirin Chewable) 81 mg PO DAILY [facility] Last Admin: 06/15/18 09:44 Dose: 81 mg Atorvastatin Calcium (Lipitor) 10 mg PO HS [facility] Last Admin: 06/14/18 21:17 Dose: 10 mg Bacitracin (Bacitracin) 1 ea TOP TID [facility] Last Admin: 06/15/18 13:13 Dose: 1 ea Donepezil HCl (Aricept) 10 mg PO DAILY [facility] Last Admin: 06/15/18 09:44 Dose: 10 mg Famotidine (Pepcid) 20 mg PO DAILY [facility] Last Admin: 06/15/18 10:00 Dose: 20 mg Gabapentin (Neurontin) 400 mg PO Q8H [facility] Last Admin: 06/15/18 10:00 Dose: 400 mg Home Med (Cyclosporine [Restasis]) 1 drop EACHEYE Q12 [facility] Last Admin: 06/15/18 09:46 Dose: 1 drop Cefepime HCl 1 gm/ Sodium (Chloride) 100 mls @ 100 mls/hr IVPB Q12 [facility]; Pro tocol Last Admin: 06/15/18 09:58 Dose: 100 mls/hr Insulin Detemir (Levemir) 15 units SC HS [facility] Insulin Detemir (Levemir) 10 units SC QAM [facility] Insulin Human Lispro (Humalog) 0 units SC ACHS [facility]; Protocol Last Admin: 06/15/18 13:14 Dose: Not Given Lactobacillus Acidophilus (Bacid Acidophilus) 1 cap PO DAILY [facility] Last Admin: 06/15/18 13:12 Dose: 1 cap Losartan Potassium (Cozaar) 100 mg PO DAILY [facility] Last Admin: 06/15/18 09:45 Dose: 100 mg Mupirocin (Bactroban Ointment) 1 applic TOP BID [facility] Last Admin: 06/15/18 09:45 Dose: 1 applic Nystatin (Nystop Topical Powder) 1 applic TOP TID [facility] Last Admin: 06/15/18 13:15 Dose: 1 applic Potassium Chloride (Klor-Con 10) 10 meq PO DAILY [facility] Last Admin: 06/15/18 09:57 Dose: 10 meq Potassium Chloride (K-Dur 20 Meq Er Tab) 20 meq PO BID [facility] Last Admin: 06/15/18 09:56 Dose: 20 meq - Labs Labs: 06/15/18 05:19 06/15/18 05:19 PT 17.8 Seconds (9.8-13.1) H 06/14/18 01:50 INR 1.6 06/14/18 01:50 APTT 36.4 Seconds (25.6-37.1) 06/09/18 15:35 - Constitutional Appears: Well - Eye Exam Eye Exam: EOMI, Normal appearance, PERRL - ENT Exam ENT Exam: Mucous Membranes Moist, Normal Exam - Neck Exam Neck Exam: Full ROM, Normal Inspection. absent: Lymphadenopathy - Respiratory Exam Respiratory Exam: Clear to Ausculation Bilateral, NORMAL BREATHING PATTERN - Cardiovascular Exam Cardiovascular Exam: REGULAR RHYTHM, +S1, +S2. absent: Murmur - GI/Abdominal Exam GI & Abdominal Exam: Soft, Normal Bowel Sounds. absent: Tenderness - Rectal Exam Rectal Exam: Deferred - Neurological Exam Neurological Exam: Abnormal Gait, Alert, Awake, CN II-XII Intact, Normal Gait, Oriented x3 Neuro motor strength exam: Left Upper Extremity: 4, Right Upper Extremity: 4, Left Lower Extremity: 4, Right Lower Extremity: 4 - Skin Skin Exam: Dry, Intact, Normal Color, Warm Assessment and Plan (1) Syncope Assessment & Plan: No recent reported syncopal episodes or witnessed syncope Status: Acute (2) Altered mental status Assessment & Plan: This is intermittent and could be due to cardiac reasons, or may be seizure. Will evaluate the EEG that was done and follow up. Status: Acute
--- NOTE | 2018-06-15 17:07 | PN ---
DATE: 06/15/2018 SUBJECTIVE: The patient denies any chest pain or shortness of breath. PHYSICAL EXAMINATION: VITAL SIGNS: Blood pressure 155/80, heart rate 67, temperature 98.2, respirations 20. HEENT: Normocephalic. CHEST: Clear. HEART: S1 and S2 regular. EXTREMITIES: Right below-knee amputation and left heel ulcer. LABORATORY DATA: Hemoglobin and hematocrit 10.2 and 31. White count and platelet count within normal limit. Today's SMA-7; sodium 145, potassium 3.1, chloride 120, CO2 of 20, glucose 62, BUN 11, and creatinine 0.8. Calcium is 7.8. ASSESSMENT: 1. Status post syncopal episode. 2. Symptomatic bradycardia, most likely iatrogenic. 3. Peripheral vascular disease status post right below-knee amputation with chronic left heel ulcer. 4. Hypokalemia. 5. Diabetes mellitus with periods of hypoglycemia. 6. Hypocalcemia. RECOMMENDATIONS: Continue aspirin 81 mg once a day, IV cefepime at 1 g every 12 hours, Cozaar 100 mg once a day, Eliquis at 5 mg twice a day. The patient did receive 40 mEq of K-Dur today as a replacement. Continue Lipitor 10 mg once a day. The patient will be evaluated by Dr. Israel for her peripheral vascular disease. Obtain a BMP in the a.m. Tommy Willett MD
--- NOTE | 2018-06-15 23:06 | PN ---
DATE: 06/15/2018 SUBJECTIVE: The patient is seen today, 06/15/2018. She is awake, but mildly lethargic. PHYSICAL EXAMINATION: VITAL SIGNS: Blood pressure is 174/80, temperature 98.1, respiratory rate 16, and pulse 66. HEENT: Pupils equal, and reactive to light. The patient is blind on the left eye. NECK: Supple. No JVD. No carotid bruit. No lymph node. No thyromegaly. CHEST AND LUNGS: Bilateral symmetrical expansion. Good air exchange. No rales, no rhonchi. CARDIOVASCULAR SYSTEM: PMI not localized. S1, S2. No additional sounds. ABDOMEN: Normoactive bowel sounds. No organomegaly. No masses. EXTREMITIES: The patient has right BKA and left foot is surgically dressed by Podiatry. DIRECTOR OF GIFT PLANNING: The patient is awake, oriented x1. ASSESSMENT: Metabolic encephalopathy, possible change of mental status secondary to pain medications, severe intertrigo of the lower abdomen and under breasts and both axilla, type 2 diabetes mellitus, diabetic neuropathy, status post right below-knee amputation. PLAN: Continue current medications and follow ID recommendations. Physical therapy. Cyndie Orellana MD
[2018-06-16 05:51] LABS: HEMOGLOBIN 10.9 g/dL (12.0-16.0); MEAN CELL VOLUME 87.1 fl (81.0-99.0); MEAN CORPUSCULAR HEMOGLOBIN 28.7 pg (27.0-31.0); RBC 3.8 Mil/uL (3.80-5.20); RED CELL DISTRIBUTION WIDTH 17.4 % (11.5-14.5); WHITE BLOOD COUNT 8.3 K/uL (4.8-10.8)
--- NOTE | 2018-06-16 05:57 | CP.PCM.PN ---
Subjective - Date & Time of Evaluation Date of Evaluation: 06/16/18 Time of Evaluation: 07:05 - Subjective Subjective: Podiatry progress note for Dr. Houston 62 y/o F patient seen and evaluated at the bedside for left heel ulcer. Patient still confused but her level of consciousness s getting better. Patient was sleeping in her bed at the visit time. Patient is currently on 6 weeks of IV ABx for her left foot acute OM and has a PICC line. As per the patient chart there was no overnight N/V/F/C or SOB. Objective - Vital Signs/Intake and Output Vital Signs (last 24 hours): Temp Pulse Resp BP Pulse Ox 98.0 F 60 16 172/74 H 100 06/16/18 05:17 06/16/18 05:17 06/16/18 05:17 06/16/18 05:17 06/16/18 05:17 Intake and Output: 06/15/18 06/16/18 18:59 06:59 Intake Total 1300 Output Total 600 Balance 700 - Medications Medications: Current Medications Apixaban (Eliquis) 5 mg PO Q12 [facility]; Protocol Last Admin: 06/15/18 22:00 Dose: 5 mg Aspirin (Aspirin Chewable) 81 mg PO DAILY [facility] Last Admin: 06/15/18 09:44 Dose: 81 mg Atorvastatin Calcium (Lipitor) 10 mg PO HS [facility] Last Admin: 06/15/18 21:51 Dose: 10 mg Bacitracin (Bacitracin) 1 ea TOP TID [facility] Last Admin: 06/15/18 16:51 Dose: 1 ea Donepezil HCl (Aricept) 10 mg PO DAILY [facility] Last Admin: 06/15/18 09:44 Dose: 10 mg Famotidine (Pepcid) 20 mg PO DAILY [facility] Last Admin: 06/15/18 10:00 Dose: 20 mg Gabapentin (Neurontin) 400 mg PO Q8H [facility] Last Admin: 06/16/18 00:13 Dose: 400 mg Home Med (Cyclosporine [Restasis]) 1 drop EACHEYE Q12 [facility] Last Admin: 06/15/18 21:51 Dose: 1 drop Cefepime HCl 1 gm/ Sodium (Chloride) 100 mls @ 100 mls/hr IVPB Q12 [facility]; Protocol Last Admin: 06/15/18 21:47 Dose: 100 mls/hr Insulin Detemir (Levemir) 15 units SC HS [facility] Last Admin: 06/15/18 21:48 Dose: 15 units Insulin Detemir (Levemir) 10 units SC QAM [facility] Insulin Human Lispro (Humalog) 0 units SC ACHS [facility]; Protocol Last Admin: 06/15/18 21:50 Dose: Not Given Lactobacillus Acidophilus (Bacid Acidophilus) 1 cap PO DAILY [facility] Last Admin: 06/15/18 13:12 Dose: 1 cap Losartan Potassium (Cozaar) 100 mg PO DAILY [facility] Last Admin: 06/15/18 09:45 Dose: 100 mg Mupirocin (Bactroban Ointment) 1 applic TOP BID [facility] Last Admin: 06/15/18 16:51 Dose: Not Given Nystatin (Nystop Topical Powder) 1 applic TOP TID [facility] Last Admin: 06/15/18 16:55 Dose: 1 applic Potassium Chloride (Klor-Con 10) 10 meq PO DAILY [facility] Last Admin: 06/15/18 09:57 Dose: 10 meq - Labs Labs: 06/15/18 05:19 06/15/18 05:19 PT 17.8 Seconds (9.8-13.1) H 06/14/18 01:50 INR 1.6 06/14/18 01:50 APTT 36.4 Seconds (25.6-37.1) 06/09/18 15:35 - Constitutional Appears: Well, Non-toxic, No Acute Distress - Head Exam Head Exam: ATRAUMATIC, NORMOCEPHALIC - Extremities Exam Additional comments: Left LE focused exam, R LE BKA Vasc: DP/PT pulses faintly palpable 1/4. Temp gradient warm to cool from proximal to distal. Cap refill < 3 seconds to all digits. No edema or erythema noted. Neuro: Protective sensation grossly diminished. Derm: Approximatly 2.6 cm x 1.7 cm X0.2 cm Oval ulceration noted to plantar/posterior left heel. Wound have fibrous and granular base 70:30. No probe to bone. no malodor. No drainage. No tracking, tunneling or undermining a ppreciated. No erythema MSK: Rigid contractures of all digits 1-5. Limited ROM at all major joints and diffuse arthritic changes. Muscle power 5/5 in all groups. No pain on palpating the abby-ulcerative area. - Neurological Exam Neurological Exam: Awake Assessment and Plan - Assessment and Plan (Free Text) Assessment: 62 y/o F patient seen and evaluated for an ulcer of the L heel Plan: Patient seen and evaluated at the bedside. Plan discussed with Dr. Houston. Charts, Labs and vitals reviewed: Afebrile, WBC 8.3 LE MRI (05/02): possible early acute and or developing acute osteomyelitis with possible underlying cellulitis Multipodus boot to be worn at all times while in bed Wound dressed with bactroban, DSD No plan for surgical intervention at this time. Vascular are onboard, Recommendations appreciated. CTA abdomen and LE: atent abd aorta. Iliacs patient with mild to moderate atherosclerotic changes. Moderta arterial disease proximal and midsegment in SFA, SeveModerated to sever distal segment. Mild to moderated distal poplital A disease. 2 vessel L LE runoff with perineal occluded at the midsegment Patient to follow up with Dr. Houston in his office upon discharge. Podiatry will continue to follow while patient in house.
[2018-06-16 06:27] LABS: BLOOD UREA NITROGEN 14 mg/dl (7-17); CALCIUM 8.8 mg/dL (8.4-10.2); GFR NON-AFRICAN AMERICAN 56
[2018-06-16] MEDS: Insulin Lispro (humaLOG) 100 Units/ml Inj SC SCH ×4 (07:30→22:23)
[2018-06-16] MEDS: Bacitracin 500 Units/gm Oint Foilpak UD TOP SCH ×3 (09:13→16:50)
[2018-06-16] MEDS: Patient's Own Med (Cyclosporine [Restasis] 1 DROP) EACHEYE SCH ×2 (09:14→22:23)
[2018-06-16] MEDS: Cefepime 1 GM in Sodium Chloride 0.9% 100 ML IVPB SCH ×2 (09:15→22:22)
[2018-06-16] MEDS: Insulin Detemir 100 Units/ml Inj SC SCH ×2 (09:15→22:24)
[2018-06-16] MEDS: Potassium Chloride 10 mEq ER Tab PO SCH (09:15)
[2018-06-16] MEDS: Lactobacillus Acidophilus 500 MU Cap PO SCH (09:20)
--- NOTE | 2018-06-16 11:04 | PCM.EEG ---
Electroencephalogram Report - Electroencephalogram Report Procedure Date: 06/15/18 Condition of Recording: Awake, Drowsy Medication: Donepezil Gabapentin ASA Interpretation: Technical Information: This was a 16-channel EEG, 1-channel EKG , performed using an [employer] machine., electrodes were applied according to the 10/20 international placement system, impedances were less than 5 K Ohm. EEG Detail: During resting wakefulness there was a symmetric posterior dominant rhythm at 7 Hz, 30-50 uV, which was poorly reactive to eye opening and closing. Drowsiness was associated with fragmentation of the posterior dominant rhythm and with slow roving eye movements. Sleep was not seen. There were occasional bursts of bi frontal paroxysmal activity at 7 to 8 Hz, lasting less than 1 second, this was seen during wakefulness and sleep. Rare sharp waves with triphasic morphology Hyperventilation was not performed. Photic stimulation was performed and there were no changes in the record. ECG was associated with a normal sinus rhythm. Impression: Impression: This is an abnormal EEG record that demonstrate the presence of a mild to mode rate non specific diffuse disturbance of cortical activity, this is in keeping with a diffuse tovar matter dysfunction. These findings do not support a specific etiology. No seizures seen
--- NOTE | 2018-06-16 17:40 | CP.PCM.CON ---
History of Present Illness - History of Present Illness History of Present Illness: Consultation for evaluation of PVD HPI: 62 year old female admitted for non-healing ulcer being consulted for evaluation of PVOD. At baseline has limited activity. Had revascularization done 2 months ago which was done at . Review of Systems - Review of Systems Systems not reviewed;Unavailable: Acuity of Condition - Constitutional Constitutional: As Per HPI - EENT Eyes: As Per HPI Ears: As Per HPI Nose/Mouth/Throat: As Per HPI - Breasts Breasts: As Per HPI - Cardiovascular Cardiovascular: As Per HPI - Respiratory Respiratory: As Per HPI - Gastrointestinal Gastrointestinal: As Per HPI - Genitourinary Genitourinary: As Per HPI - Reproductive: Female Reproductive:Female: As Per HPI - Menstruation Menstruation: As Per HPI - Musculoskeletal Musculoskeletal: As Per HPI - Integumentary Integumentary: As Per HPI - Neurological Neurological: As Per HPI - Psychiatric Psychiatric: As Per HPI - Endocrine Endocrine: As Per HPI - Hematologic/Lymphatic Hematologic: As Per HPI Past Patient History - Past Social History Smoking Status: Former Smoker Alcohol: None Drugs: Denies Home Situation {Lives}: Alone - CARDIAC Hx Cardiac Disorders: Yes (HTN, high cholesterol) Hx Hypercholesterolemia: Yes Hx Hypertension: Yes - PULMONARY Hx Respiratory Disorders: No - NEUROLOGICAL Hx Neurological Disorder: Yes (CVA) HX Cerebrovascular Accident: Yes Hx Dementia: Yes - RENAL Hx Chronic Kidney Disease: Yes - ENDOCRINE/METABOLIC Hx Endocrine Disorders: Yes (DM) Hx Diabetes Mellitus Type 2: Yes - HEMATOLOGICAL/ONCOLOGICAL Hx Blood Disorders: No - INTEGUMENTARY Hx Dermatological Problems: No - MUSCULOSKELETAL/RHEUMATOLOGICAL Hx Musculoskeletal Disorders: Yes (arthritis, RT BKA, osetomylitis left heel) Hx Arthritis: Yes Hx Falls: Yes Hx Osteomyelitis: Yes - GASTROINTESTINAL Hx Gastrointestinal Disorders: Yes Hx Gastroesophageal Reflux: Yes Hx Nausea: Yes Hx Ulcer: Yes - GENITOURINARY/GYNECOLOGICAL Hx Genitourinary Disorders: Yes (incontinence) Hx Incontinence: Yes - PSYCHIATRIC Hx Psychophysiologic Disorder: Yes (anxiety) Hx Anxiety: Yes Hx Substance Use: No - SURGICAL HISTORY Hx Surgeries: Yes (RBKA) Hx Amputation: Yes - ANESTHESIA Hx Anesthesia: Yes Hx Anesthesia Reactions: No Hx Malignant Hyperthermia: No Has any member of the family had a problem w/ anesthesia?: No Meds Allergies/Adverse Reactions: Allergies Allergy/AdvReac Type Severity Reaction Status Date / Time acetaminophen [From Percocet] Allergy SWELLING Verified 06/09/18 16:17 oxycodone [From Percocet] Allergy SWELLING Verified 06/09/18 16:17 hydromorphone [From Dilaudid] AdvReac SHORTNESS Verified 06/09/18 16:17 OF BREATH - Medications Medications: Current Medications Apixaban (Eliquis) 5 mg PO Q12 [facility]; Protocol Last Admin: 06/16/18 09:14 Dose: 5 mg Aspirin (Aspirin Chewable) 81 mg PO DAILY [facility] Last Admin: 06/16/18 09:11 Dose: 81 mg Atorvastatin Calcium (Lipitor) 10 mg PO HS [facility] Last Admin: 06/15/18 21:51 Dose: 10 mg Bacitracin (Bacitracin) 1 ea TOP TID [facility] Last Admin: 06/16/18 16:50 Dose: 1 ea Donepezil HCl (Aricept) 10 mg PO DAILY [facility] Last Admin: 06/16/18 09:11 Dose: 10 mg Famotidine (Pepcid) 20 mg PO DAILY [facility] Last Admin: 06/16/18 09:18 Dose: 20 mg Gabapentin (Neurontin) 400 mg PO Q8H [facility] Last Admin: 06/16/18 16:53 Dose: 400 mg Home Med (Cyclosporine [Restasis]) 1 drop EACHEYE Q12 [facility] Last Admin: 06/16/18 09:14 Dose: 1 drop Cefepime HCl 1 gm/ Sodium (Chloride) 100 mls @ 100 mls/hr IVPB Q12 [facility]; Protocol Last Admin: 06/16/18 09:15 Dose: 100 mls/hr Insulin Detemir (Levemir) 15 units SC HS [facility] Last Admin: 06/15/18 21:48 Dose: 15 units Insulin Detemir (Levemir) 10 units SC QAM [facility] Last Admin: 06/16/18 09:15 Dose: Not Given Insulin Human Lispro (Humalog) 0 units SC ACHS [facility]; Protocol Last Admin: 06/16/18 16:51 Dose: 2 units Lactobacillus Acidophilus (Bacid Acidophilus) 1 cap PO DAILY [facility] Last Admin: 06/16/18 09:20 Dose: 1 cap Losartan Potassium (Cozaar) 100 mg PO DAILY [facility] Last Admin: 06/16/18 09:13 Dose: 100 mg Mupirocin (Bactroban Ointment) 1 applic TOP BID [facility] Last Admin: 06/16/18 16:50 Dose: 1 applic Nystatin (Nystop Topical Powder) 1 applic TOP TID [facility] Last Admin: 06/16/18 16:53 Dose: 1 applic Potassium Chloride (Klor-Con 10) 10 meq PO DAILY [facility] Last Admin: 06/16/18 09:15 Dose: 10 meq Physical Exam - Constitutional Appears: Well - Head Exam Head Exam: ATRAUMATIC, NORMAL INSPECTION, NORMOCEPHALIC - Eye Exam Eye Exam: EOMI, Normal appearance, PERRL Pupil Exam: NORMAL ACCOMODATION, PERRL - ENT Exam ENT Exam: Mucous Membranes Moist, Normal Exam - Neck Exam Neck exam: Positive for: Normal Inspection - Respiratory Exam Respiratory Exam: Clear to Auscultation Bilateral, NORMAL BREATHING PATTERN - Cardiovascular Exam Cardiovascular Exam: REGULAR RHYTHM, +S1, +S2, Systolic Murmur - GI/Abdominal Exam GI & Abdominal Exam: Normal Bowel Sounds, Soft. absent: Tenderness - Extremities Exam Additional comments: left foot gangrene - Back Exam Back exam: NORMAL INSPECTION - Neurological Exam Neurological exam: Alert, CN II-XII Intact, Normal Gait, Oriented x3, Reflexes Normal - Psychiatric Exam Psychiatric exam: Normal Affect, Normal Mood - Skin Skin Exam: Dry, Intact, Normal Color, Warm Results - Vital Signs Recent Vital Signs: Last Vital Signs Temp 98 F 06/16/18 16:21 Pulse 68 06/16/18 16:21 Resp 20 06/16/18 16:21 BP 165/76 H 06/16/18 16:21 Pulse Ox 100 06/16/18 16:21 - Labs Result Diagrams: 06/16/18 04:20 06/16/18 04:20 Labs: Laboratory Results - last 24 hr 06/15/18 06/16/18 06/16/18 21:06 04:20 04:20 WBC 8.3 RBC 3.80 Hgb 10.9 L Hct 33.1 L MCV 87.1 MCH 28.7 MCHC 33.0 RDW 17.4 H Plt Count 219 Sodium 140 Potassium 4.1 Chloride 112 H Carbon Dioxide 26 Anion Gap 6 L BUN 14 Creatinine 1.0 Est GFR ( Amer) > 60 Est GFR (Non-Af Amer) 56 POC Glucose (mg/dL) 207 H Random Glucose 141 H Calcium 8.8 06/16/18 06/16/18 06/16/18 05:36 11:33 15:52 WBC RBC Hgb Hct MCV MCH MCHC RDW Plt Count Sodium Potassium Chloride Carbon Dioxide Anion Gap BUN Creatinine Est GFR ( Amer) Est GFR (Non-Af Amer) POC Glucose (mg/dL) 125 H 177 H 236 H Random Glucose Calcium Assessment & Plan (1) PVD (peripheral vascular disease) Assessment and Plan: CTA of LE Status: Acute (2) Gangrene of lower extremity Status: Acute (3) Non-healing wound of left heel Status: Acute (4) Status post below knee amputation of right lower extremity Status: Acute
--- NOTE | 2018-06-16 17:44 | CP.PCM.PN ---
Subjective - Date & Time of Evaluation Date of Evaluation: 06/14/18 Time of Evaluation: 11:00 - Subjective Subjective: awake and resposive [facility] overnight as stated below 62-year-old woman with a past medical history of CAD, Dementia, Diabetes, Deep Vein Thrombosis, GERD, HTN, Chronic Kidney Disease, neuropathy, legally blind, recently treated osteomyelitis diabetic foot, and right lower extremity BKA was admitted on 06/09 (5 days prior to [facility]) for AMS/syncopal episode at home. She is currently receiving IV cefepime via PICC for treatment of a left heel pseudomonas infection (4 weeks completed). Earlier this evening she was alert and oriented x2 (as per RN) prior to the 2mg morphine she received at 12:13am. Nurse noticed shortly after that patient was lethargic and unresponsive and called [facility] at 1:20am. Upon arrival patient was responsive only to sternal rub until 1:32 when she became slightly more awake but still unable to answer questions. Narcan 0.4 mg given at 1:44am which made her more alert but still unable to answer any questions. Patient then complained of chest pain and an EKG was ordered STAT; showed no change from previous (1d AVB, sinus rhythm). Second dose of Narcan 0.4mg was given at 1:56am. Patient did not deteriorate any further and although was alert still remained oriented x0 and not at mental baseline. Able to answer minimal questions, continuously repeated that she wants to go home. No focal deficits noted. Patient strength and movement remained intact, at baseline. [facility] intervention: -Narcan 0.4mg 1:44 am -EKG 1:55 am -Narcan 0.4mg 1:56 am -CBC, CMP, CoAg, PT/INR, Troponin I, VBG, Prolactin -CT head with contrast pending -Transfer to telemetry for continuous monitoring -Aspiration precautions -EEG in am [facility] Outcome: Patient remained vitally stable throughout [facility]. She is improved since [facility] arrival but not yet back to baseline (as per RN). Alert, but not oriented. Not clear that morphine was cause of AMS as patient did not return to baseline after Narcan (2x 0.4 mg[address] CT head pending. EEG to be completed in am. Patient being transferred to telemetry for constant monitoring. Aspiration precautions. Follow up labs (CBC, CMP, CoAg, PT/INR, Troponin I, VBG, Prolactin) Objective - Vital Signs/Intake and Output Vital Signs (last 24 hours): Temp Pulse Resp BP Pulse Ox 98 F 68 20 165/76 H 100 06/16/18 16:21 06/16/18 16:21 18 16:21 06/16/18 16:21 06/16/18 16:21 - Medications Medications: Current Medications Apixaban (Eliquis) 5 mg PO Q12 [facility]; Protocol Last Admin: 06/16/18 09:14 Dose: 5 mg Aspirin (Aspirin Chewable) 81 mg PO DAILY [facility] Last Admin: 06/16/18 09:11 Dose: 81 mg Atorvastatin Calcium (Lipitor) 10 mg PO HS [facility] Last Admin: 06/15/18 21:51 Dose: 10 mg Bacitracin (Bacitracin) 1 ea TOP TID [facility] Last Admin: 06/16/18 16:50 Dose: 1 ea Donepezil HCl (Aricept) 10 mg PO DAILY [facility] Last Admin: 06/16/18 09:11 Dose: 10 mg Famotidine (Pepcid) 20 mg PO DAILY [facility] Last Admin: 06/16/18 09:18 Dose: 20 mg Gabapentin (Neurontin) 400 mg PO Q8H [facility] Last Admin: 06/16/18 16:53 Dose: 400 mg Home Med (Cyclosporine [Restasis]) 1 drop EACHEYE Q12 [facility] Last Admin: 06/16/18 09:14 Dose: 1 drop Cefepime HCl 1 gm/ Sodium (Chloride) 100 mls @ 100 mls/hr IVPB Q12 [facility]; Protocol Last Admin: 06/16/18 09:15 Dose: 100 mls/hr Insulin Detemir (Levemir) 15 units SC HS [facility] Last Admin: 06/15/18 21:48 Dose: 15 units Insulin Detemir (Levemir) 10 units SC QAM [facility] Last Admin: 06/16/18 09:15 Dose: Not Given Insulin Human Lispro (Humalog) 0 units SC ACHS [facility]; Protocol Last Admin: 06/16/18 16:51 Dose: 2 units Lactobacillus Acidophilus (Bacid Acidophilus) 1 cap PO DAILY [facility] Last Admin: 06/16/18 09:20 Dose: 1 cap Losartan Potassium (Cozaar) 100 mg PO DAILY [facility] Last Admin: 06/16/18 09:13 Dose: 100 mg Mupirocin (Bactroban Ointment) 1 applic TOP BID [facility] Last Admin: 06/16/18 16:50 Dose: 1 applic Nystatin (Nystop Topical Powder) 1 applic TOP TID [facility] Last Admin: 06/16/18 16:53 Dose: 1 applic Potassium Chloride (Klor-Con 10) 10 meq PO DAILY [facility] Last Admin: 06/16/18 09:15 Dose: 10 meq - Labs Labs: 06/16/18 04:20 06/16/18 04:20 PT 17.8 Seconds (9.8-13.1) H 06/14/18 01:50 INR 1.6 06/14/18 01:50 APTT 36.4 Seconds (25.6-37.1) 06/09/18 15:35 - Constitutional Appears: Well - Head Exam Head Exam: ATRAUMATIC, NORMAL INSPECTION, NORMOCEPHALIC - Eye Exam Eye Exam: EOMI, Normal appearance, PERRL Pupil Exam: NORMAL ACCOMODATION, PERRL - ENT Exam ENT Exam: Mucous Membranes Moist, Normal Exam - Neck Exam Neck Exam: Full ROM, Normal Inspection. absent: Lymphadenopathy - Respiratory Exam Respiratory Exam: Clear to Ausculation Bilateral, NORMAL BREATHING PATTERN - Cardiovascular Exam Cardiovascular Exam: REGULAR RHYTHM, +S1, +S2. absent: Murmur - GI/Abdominal Exam GI & Abdominal Exam: Soft, Normal Bowel Sounds. absent: Tenderness - Extremities Exam Extremities Exam: Full ROM, Normal Capillary Refill, Normal Inspection. absent: Joint Swelling, Pedal Edema - Back Exam Back Exam: NORMAL INSPECTION - Neurological Exam Neurological Exam: Alert, Awake, CN II-XII Intact, Normal Gait, Oriented x3 - Psychiatric Exam Psychiatric exam: Normal Affect, Normal Mood - Skin Skin Exam: Dry, Intact, Normal Color, Warm Assessment and Plan (1) PVD (peripheral vascular disease) Assessment & Plan: CTA shows high grade popliteal disease will need redo-angiogram and possible atherectomy/angioplasty asa, plavix , statins, bb Status: Acute (2) Gangrene of lower extremity Status: Acute (3) Non-healing wound of left heel Status: Acute (4) Status post below knee amputation of right lower extremity Status: Acute
--- NOTE | 2018-06-16 17:46 | CP.PCM.PN ---
Subjective - Date & Time of Evaluation Date of Evaluation: 06/15/18 Time of Evaluation: 17:45 - Subjective Subjective: MS back to baseline CTA shows high grade stenosis etiology of MS changes ? 2' to morphine dose Objective - Vital Signs/Intake and Output Vital Signs (last 24 hours): Temp Pulse Resp BP Pulse Ox 98 F 68 20 165/76 H 100 06/16/18 16:21 06/16/18 16:21 06/16/18 16:21 06/16/18 16:21 06/16/18 16:21 - Medications Medications: Current Medications Apixaban (Eliquis) 5 mg PO Q12 [facility]; Protocol Last Admin: 06/16/18 09:14 Dose: 5 mg Aspirin (Aspirin Chewable) 81 mg PO DAILY [facility] Last Admin: 06/16/18 09:11 Dose: 81 mg Atorvastatin Calcium (Lipitor) 10 mg PO HS [facility] Last Admin: 06/15/18 21:51 Dose: 10 mg Bacitracin (Bacitracin) 1 ea TOP TID [facility] Last Admin: 06/16/18 16:50 Dose: 1 ea Donepezil HCl (Aricept) 10 mg PO DAILY [facility] Last Admin: 06/16/18 09:11 Dose: 10 mg Famotidine (Pepcid) 20 mg PO DAILY [facility] Last Admin: 06/16/18 09:18 Dose: 20 mg Gabapentin (Neurontin) 400 mg PO Q8H [facility] Last Admin: 06/16/18 16:53 Dose: 400 mg Home Med (Cyclosporine [Restasis]) 1 drop EACHEYE Q12 [facility] Last Admin: 06/16/18 09:14 Dose: 1 drop Cefepime HCl 1 gm/ Sodium (Chloride) 100 mls @ 100 mls/hr IVPB Q12 [facility]; Protocol Last Admin: 06/16/18 09:15 Dose: 100 mls/hr Insulin Detemir (Levemir) 15 units SC HS [facility] Last Admin: 06/15/18 21:48 Dose: 15 units Insulin Detemir (Levemir) 10 units SC QAM [facility] Last Admin: 06/16/18 09:15 Dose: Not Given Insulin Human Lispro (Humalog) 0 units SC ACHS [facility]; Protocol Last Admin: 06/16/18 16:51 Dose: 2 units Lactobacillus Acidophilus (Bacid Acidophilus) 1 cap PO DAILY [facility] Last Admin: 06/16/18 09:20 Dose: 1 cap Losartan Potassium (Cozaar) 100 mg PO DAILY [facility] Last Admin: 06/16/18 09:13 Dose: 100 mg Mupirocin (Bactroban Ointment) 1 applic TOP BID [facility] Last Admin: 06/16/18 16:50 Dose: 1 applic Nystatin (Nystop Topical Powder) 1 applic TOP TID [facility] Last Admin: 06/16/18 16:53 Dose: 1 applic Potassium Chloride (Klor-Con 10) 10 meq PO DAILY [facility] Last Admin: 06/16/18 09:15 Dose: 10 meq - Labs Labs: 06/16/18 04:20 06/16/18 04:20 PT 17.8 Seconds (9.8-13.1) H 06/14/18 01:50 INR 1.6 06/14/18 01:50 APTT 36.4 Seconds (25.6-37.1) 06/09/18 15:35 - Constitutional Appears: Well - Head Exam Head Exam: ATRAUMATIC, NORMAL INSPECTION, NORMOCEPHALIC - Eye Exam Eye Exam: EOMI, Normal appearance, PERRL Pupil Exam: NORMAL ACCOMODATION, PERRL - ENT Exam ENT Exam: Mucous Membranes Moist, Normal Exam - Neck Exam Neck Exam: Full ROM, Normal Inspection. absent: Lymphadenopathy - Respiratory Exam Respiratory Exam: Clear to Ausculation Bilateral, NORMAL BREATHING PATTERN - Cardiovascular Exam Cardiovascular Exam: REGULAR RHYTHM, +S1, +S2. absent: Murmur - GI/Abdominal Exam GI & Abdominal Exam: Soft, Normal Bowel Sounds. absent: Tenderness - Extremities Exam Extremities Exam: absent: Joint Swelling, Pedal Edema Additional comments: left foot gangrene - Back Exam Back Exam: NORMAL INSPECTION - Neurological Exam Neurological Exam: Alert, Awake, CN II-XII Intact - Psychiatric Exam Psychiatric exam: Normal Affect, Normal Mood - Skin Skin Exam: Dry, Intact, Normal Color, Warm Assessment and Plan (1) PVD (peripheral vascular disease) Status: Acute (2) Gangrene of lower extremity Status: Acute (3) Non-healing wound of left heel Status: Acute (4) Status post below knee amputation of right lower extremity Status: Acute
--- NOTE | 2018-06-16 17:50 | CP.PCM.PN ---
Subjective - Date & Time of Evaluation Date of Evaluation: 06/16/18 Time of Evaluation: 17:48 - Subjective Subjective: more awake EEG done CTA shows high grade stenosis 06/14 62-year-old woman with a past medical history of CAD, Dementia, Diabetes, Deep Vein Thrombosis, GERD, HTN, Chronic Kidney Disease, neuropathy, legally blind, recently treated osteomyelitis diabetic foot, and right lower extremity BKA was admitted on 06/09 (5 days prior to [employer]) for AMS/syncopal episode at home. She is currently receiving IV cefepime via PICC for treatment of a left heel pseudomonas infection (4 weeks completed). Earlier this evening she was alert and oriented x2 (as per RN) prior to the 2mg morphine she received at 12:13am. Nurse noticed shortly after that patient was lethargic and unresponsive and called [employer] at 1:20am. Upon arrival patient was responsive only to sternal rub until 1:32 when she became slightly more awake but still unable to answer q uestions. Narcan 0.4 mg given at 1:44am which made her more alert but still unable to answer any questions. Patient then complained of chest pain and an EKG was ordered STAT; showed no change from previous (1d AVB, sinus rhythm). Second dose of Narcan 0.4mg was given at 1:56am. Patient did not deteriorate any further and although was alert still remained oriented x0 and not at mental baseline. Able to answer minimal questions, continuously repeated that she wants to go home. No focal deficits noted. Patient strength and movement remained intact, at baseline. [employer] intervention: -Narcan 0.4mg 1:44 am -EKG 1:55 am -Narcan 0.4mg 1:56 am -CBC, CMP, CoAg, PT/INR, Troponin I, VBG, Prolactin -CT head with contrast pending -Transfer to telemetry for continuous monitoring -Aspiration precautions -EEG in am [employer] Outcome: Patient remained vitally stable throughout [employer]. She is improved since [employer] arrival but not yet back to baseline (as per RN). Alert, but not oriented. Not clear that morphine was cause of AMS as patient did not return to baseline after Narcan (2x 0.[address] mg[address] CT head pending. EEG to be completed in am. Patient being transferred to telemetry for constant monitoring. Aspiration prec autions. Follow up labs (CBC, CMP, CoAg, PT/INR, Troponin I, VBG, Prolactin) Objective - Vital Signs/Intake and Output Vital Signs (last 24 hours): Temp Pulse Resp BP Pulse Ox 98 F 68 20 165/76 H 100 06/16/18 16:21 18 16:21 06/16/18 16:21 06/16/18 16:21 06/16/18 16:21 - Medications Medications: Current Medications Apixaban (Eliquis) 5 mg PO Q12 [facility]; Protocol Last Admin: 06/16/18 09:14 Dose: 5 mg Aspirin (Aspirin Chewable) 81 mg PO DAILY [facility] Last Admin: 06/16/18 09:11 Dose: 81 mg Atorvastatin Calcium (Lipitor) 10 mg PO HS [facility] Last Admin: 06/15/18 21:51 Dose: 10 mg Bacitracin (Bacitracin) 1 ea TOP TID [facility] Last Admin: 06/16/18 16:50 Dose: 1 ea Donepezil HCl (Aricept) 10 mg PO DAILY [facility] Last Admin: 06/16/18 09:11 Dose: 10 mg Famotidine (Pepcid) 20 mg PO DAILY [facility] Last Admin: 06/16/18 09:18 Dose: 20 mg Gabapentin (Neurontin) 400 mg PO Q8H [facility] Last Admin: 06/16/18 16:53 Dose: 400 mg Home Med (Cyclosporine [Restasis]) 1 drop EACHEYE Q12 [facility] Last Admin: 06/16/18 09:14 Dose: 1 drop Cefepime HCl 1 gm/ Sodium (Chloride) 100 mls @ 100 mls/hr IVPB Q12 [facility]; Protocol Last Admin: 06/16/18 09:15 Dose: 100 mls/hr Insulin Detemir (Levemir) 15 units SC HS [facility] Last Admin: 06/15/18 21:48 Dose: 15 units Insulin Detemir (Levemir) 10 units SC QAM [facility] Last Admin: 06/16/18 09:15 Dose: Not Given Insulin Human Lispro (Humalog) 0 units SC ACHS [facility]; Protocol Last Admin: 06/16/18 16:51 Dose: 2 units Lactobacillus Acidophilus (Bacid Acidophilus) 1 cap PO DAILY [facility] Last Admin: 06/16/18 09:20 Dose: 1 cap Losartan Potassium (Cozaar) 100 mg PO DAILY [facility] Last Admin: 06/16/18 09:13 Dose: 100 mg Mupirocin (Bactroban Ointment) 1 applic TOP BID [facility] Last Admin: 06/16/18 16:50 Dose: 1 applic Nystatin (Nystop Topical Powder) 1 applic TOP TID [facility] Last Admin: 06/16/18 16:53 Dose: 1 applic Potassium Chloride (Klor-Con 10) 10 meq PO DAILY [facility] Last Admin: 06/16/18 09:15 Dose: 10 meq - Labs Labs: 06/16/18 04:20 06/16/18 04:20 PT 17.8 Seconds (9.8-13.1) H 06/14/18 01:50 INR 1.6 06/14/18 01:50 APTT 36.4 Seconds (25.6-37.1) 06/09/18 15:35 - Constitutional Appears: Well - Head Exam Head Exam: ATRAUMATIC, NORMAL INSPECTION, NORMOCEPHALIC - Eye Exam Eye Exam: EOMI, Normal appearance, PERRL Pupil Exam: NORMAL ACCOMODATION, PERRL - ENT Exam ENT Exam: Mucous Membranes Moist, Normal Exam - Neck Exam Neck Exam: Full ROM, Normal Inspection. absent: Lymphadenopathy - Respiratory Exam Respiratory Exam: Clear to Ausculation Bilateral, NORMAL BREATHING PATTERN - Cardiovascular Exam Cardiovascular Exam: REGULAR RHYTHM, +S1, +S2. absent: Murmur - GI/Abdominal Exam GI & Abdominal Exam: Soft, Normal Bowel Sounds. absent: Tenderness - Extremities Exam Extremities Exam: Full ROM, Normal Capillary Refill, Normal Inspection. absent: Joint Swelling, Pedal Edema - Back Exam Back Exam: NORMAL INSPECTION - Neurological Exam Neurological Exam: Alert, Awake, CN II-XII Intact, Normal Gait, Oriented x3 - Psychiatric Exam Psychiatric exam: Normal Affect, Normal Mood - Skin Skin Exam: Dry, Intact, Normal Color, Warm Assessment and Plan (1) PVD (peripheral vascular disease) Assessment & Plan: plan for peripheral angiogram on Tuesday at [facility] keep pt on asa, plavix bb statins acei Status: Acute (2) Gangrene of lower extremity Status: Acute (3) Non-healing wound of left heel Status: Acute (4) Status post below knee amputation of right lower extremity Status: Acute
--- NOTE | 2018-06-16 18:30 | MRI ---
Date of service: 06/16/2018 PROCEDURE: MRI BRAIN WITHOUT CONTRAST HISTORY: AMS COMPARISON: None available. TECHNIQUE: Multiplanar, multisequence MR images of the brain were obtained without intravenous contrast enhancement. FINDINGS: HEMORRHAGE: None DWI: No evidence of an acute or early subacute infarction. BRAIN PARENCHYMA: Multiple chronic lacunes are identified once again including the inferior right basal ganglia, bilateral thalami left frontal periventricular white matter and likely also left side of the body of the corpus callosum. This 1 sub cm focus at the left side of the body of the corpus callosum exhibits bright FLAIR signal in the periphery with dark FLAIR signal internally. This is somewhat unusual and could reflect proteinaceous abnormality but is not felt to represent blood given lack of hemosiderin related signal dephasing on gradient echo. Nevertheless, consider follow-up brain MRI with contrast for added characterization. A small lobar infarction at the left basal ganglia/frontal lobe is again seen resulting in ex vacuo expansion of the left lateral ventricle focally. Diffuse cerebral atrophy chronic microangiopathy are reiterated, including involving the warren with chronic infarct identified at the left cerebellum once again. VENTRICLES: No hydrocephalus. CRANIUM: Unremarkable. ORBITS: Grossly unremarkable. PARANASAL SINUSES/MASTOIDS: Left mastoid effusions appear [id number] in severity. VASCULAR SYSTEM: Skull base flow voids intact. OTHER FINDINGS: None. IMPRESSION: 1. No MR evidence of an acute or subacute brain infarction. 2. Sub cm area of somewhat irregular signal change at the left side of body of the corpus callosum history reflecting chronic lacune. Precautionary follow-up MRI with gadolinium is advised for added characterization as this exhibits somewhat unusual FLAIR signal characteristics. 3. Multifocal chronic lacunes as well as small lobar infarctions left frontal lobe/basal ganglia and left cerebellum. 4. Reiterated age related neuro degenerative findings.
--- NOTE | 2018-06-16 20:47 | PN ---
DATE: 06/16/2018 SUBJECTIVE: The patient is seen today, 06/16/2018. She is not in any cardiopulmonary distress. The patient is still lethargic. PHYSICAL EXAMINATION: VITAL SIGNS: Blood pressure 165/76, temperature 98, respiratory rate 20, and pulse 68. HEENT: The patient has blindness in the left eye. Normal-appearing mucosa of the conjunctivae, oropharynx, and nasal membrane mucosa. NECK: Supple. No JVD. No carotid bruit. No lymph node. No thyromegaly. CHEST AND LUNGS: Bilateral symmetrical expansion. Good air exchange. No rales. No rhonchi. CARDIOVASCULAR SYSTEM: PMI not localized. S1, S2. No additional sounds. ABDOMEN: Normoactive bowel sounds. No tenderness. No organomegaly. No masses. EXTREMITIES: The patient has right BKA and left foot ulcer. BOX PERSON: Alert. The patient is awake and oriented to person and place, but not to time. ASSESSMENT: Metabolic encephalopathy; diabetic foot, on IV antibiotics; diabetic neuropathy; hypertension; intertrigo on the lower abdominal as well as under breasts and both axilla, currently on nystatin. PLAN: Continue current medications and follow social service recommendations regarding the discharge planning as the patient lives by herself at home. Continue current medications. Cyndie Orellana MD
--- NOTE | 2018-06-16 21:01 | PN ---
DATE: 06/16/2018 SUBJECTIVE: The patient denies any chest pain or dizziness. No reported arrhythmia. She was evaluated by the renewals specialist and she does have significant sacral skin fungal infection besides her fungal infection in the inguinal area and below the breasts. She denies chest pain or dizziness. PHYSICAL EXAMINATION: VITAL SIGNS: Blood pressure 163/83, heart rate 63, temperature 97.8, and respirations 18. HEENT: Normocephalic. CHEST: Clear. HEART: S1 and S2 regular. EXTREMITIES: Right below-knee amputation and dressings applied to the left heel. LABORATORY DATA: Hemoglobin and hematocrit 10.9 and 33.1, white count 8.3, and platelet count 219,000. Today's SMA-7: Sodium 140, potassium 4.1, chloride 112, CO2 26. glucose 141, BUN 14, and creatinine 1. EEG: Abnormal EEG report that demonstrate presence of [id number] nonspecific of cortical activity. This is in keeping with diffuse tovar matter dysfunction. These findings do not support specific etiology. ASSESSMENT: 1. Status post syncopal episode. 2. Complete atrioventricular block on admission, most likely echogenic. 3. Peripheral vascular disease, status post below-knee amputation and chronic left heel ulcer. The blood culture is negative after 5 days. RECOMMENDATIONS: Continue Aricept mg daily, aspirin 81 mg once a day, IV cefepime 1 g every 12 hours, Cozaar 100 mg once a day, Eliquis at 5 mg twice a day, Lipitor 10 mg once a day, Pepcid 20 mg orally once a day. Tommy Willett MD
[2018-06-17] MEDS: Insulin Lispro (humaLOG) 100 Units/ml Inj SC SCH ×4 (07:30→22:01)
[2018-06-17] MEDS: Bacitracin 500 Units/gm Oint Foilpak UD TOP SCH ×3 (08:47→17:00)
[2018-06-17] MEDS: Patient's Own Med (Cyclosporine [Restasis] 1 DROP) EACHEYE SCH ×2 (08:50→21:05)
[2018-06-17] MEDS: Potassium Chloride 10 mEq ER Tab PO SCH (08:53)
[2018-06-17] MEDS: Cefepime 1 GM in Sodium Chloride 0.9% 100 ML IVPB SCH ×2 (08:54→21:05)
[2018-06-17] MEDS: Insulin Detemir 100 Units/ml Inj SC SCH ×2 (08:54→22:03)
[2018-06-17] MEDS: Lactobacillus Acidophilus 500 MU Cap PO SCH (08:59)
--- NOTE | 2018-06-17 11:04 | CP.PCM.PN ---
<Angel Houston - Last Filed: 06/17/18 11:03> Subjective - Date & Time of Evaluation Date of Evaluation: 06/17/18 Time of Evaluation: 11:03 - Subjective Subjective: Patient seen at bedside fo ulcer left heel follow up . No complaints this AM Objective - Vital Signs/Intake and Output Vital Signs (last 24 hours): Temp Pulse Resp BP Pulse Ox 97.9 F 62 16 171/77 H 97 06/17/18 05:00 06/17/18 08:49 06/17/18 05:00 06/17/18 08:49 06/17/18 05:00 - Medications Medications: Current Medications Apixaban (Eliquis) 5 mg PO Q12 [facility]; Protocol Last Admin: 06/17/18 08:50 Dose: 5 mg Aspirin (Aspirin Chewable) 81 mg PO DAILY [facility] Last Admin: 06/17/18 08:47 Dose: 81 mg Atorvastatin Calcium (Lipitor) 10 mg PO HS [facility] Last Admin: 06/16/18 22:23 Dose: 10 mg Bacitracin (Bacitracin) 1 ea TOP TID [facility] Last Admin: 06/17/18 08:47 Dose: 1 ea Donepezil HCl (Aricept) 10 mg PO DAILY [facility] Last Admin: 06/17/18 08:47 Dose: 10 mg Famotidine (Pepcid) 20 mg PO DAILY [facility] Last Admin: 06/17/18 08:58 Dose: 20 mg Gabapentin (Neurontin) 400 mg PO Q8H [facility] Last Admin: 06/17/18 08:56 Dose: 400 mg Home Med (Cyclosporine [Restasis]) 1 drop EACHEYE Q12 [facility] Last Admin: 06/17/18 08:50 Dose: 1 drop Cefepime HCl 1 gm/ Sodium (Chloride) 100 mls @ 100 mls/hr IVPB Q12 [facility]; Protocol Last Admin: 06/17/18 08:54 Dose: 100 mls/hr Insulin Detemir (Levemir) 15 units SC HS [facility] Last Admin: 06/16/18 22:24 Dose: 15 units Insulin Detemir (Levemir) 10 units SC QAM [facility] Last Admin: 06/17/18 08:54 Dose: Not Given Insulin Human Lispro (Humalog) 0 units SC ACHS [facility]; Protocol Last Admin: 06/17/18 07:30 Dose: Not Given Lactobacillus Acidophilus (Bacid Acidophilus) 1 cap PO DAILY [facility] Last Admin: 06/17/18 08:59 Dose: 1 cap Losartan Potassium (Cozaar) 100 mg PO DAILY [facility] Last Admin: 06/17/18 08:49 Dose: 100 mg Mupirocin (Bactroban Ointment) 1 applic TOP BID [facility] Last Admin: 06/17/18 08:48 Dose: 1 applic Nystatin (Nystop Topical Powder) 1 applic TOP TID [facility] Last Admin: 06/17/18 08:58 Dose: 1 applic Potassium Chloride (Klor-Con 10) 10 meq PO DAILY [facility] Last Admin: 06/17/18 08:53 Dose: 10 meq - Labs Labs: 06/16/18 04:20 06/16/18 04:20 PT 17.8 Seconds (9.8-13.1) H 06/14/18 01:50 INR 1.6 06/14/18 01:50 APTT 36.4 Seconds (25.6-37.1) 06/09/18 15:35 <Bao Jacobson - Last Filed: 06/17/18 15:13> Subjective - Subjective Subjective: Podiatry progress note for Dr. Houston 62 y/o F patient seen and evaluated at the bedside for left heel ulcer. Patient NAD today and denies any acute complaints. Patient is currently on 6 weeks of IV ABx for her left foot acute OM and has a PICC line. Denies N/V/F/C/SOB Objective - Vital Signs/Intake and Output Vital Signs (last 24 hours): Temp Pulse Resp BP Pulse Ox 97.9 F 62 16 171/77 H 97 06/17/18 05:00 06/17/18 08:49 06/17/18 05:00 06/17/18 08:49 06/17/18 05:00 - Medications Medications: Current Medications Apixaban (Eliquis) 5 mg PO Q12 [facility]; Protocol Last Admin: 06/17/18 08:50 Dose: 5 mg Aspirin (Aspirin Chewable) 81 mg PO DAILY [facility] Last Admin: 06/17/18 08:47 Dose: 81 mg Atorvastatin Calcium (Lipitor) 10 mg PO HS [facility] Last Admin: 06/16/18 22:23 Dose: 10 mg Bacitracin (Bacitracin) 1 ea TOP TID [facility] Last Admin: 06/17/18 13:22 Dose: 1 ea Donepezil HCl (Aricept) 10 mg PO DAILY [facility] Last Admin: 06/17/18 08:47 Dose: 10 mg Famotidine (Pepcid) 20 mg PO DAILY [facility] Last Admin: 06/17/18 08:58 Dose: 20 mg Gabapentin (Neurontin) 400 mg PO Q8H [facility] Last Admin: 06/17/18 08:56 Dose: 400 mg Home Med (Cyclosporine [Restasis]) 1 drop EACHEYE Q12 [facility] Last Admin: 06/17/18 08:50 Dose: 1 drop Cefepime HCl 1 gm/ Sodium (Chloride) 100 mls @ 100 mls/hr IVPB Q12 [facility]; Protocol Last Admin: 06/17/18 08:54 Dose: 100 mls/hr Insulin Detemir (Levemir) 15 units SC HS [facility] Last Admin: 06/16/18 22:24 Dose: 15 units Insulin Detemir (Levemir) 10 units SC QAM [facility] Last Admin: 06/17/18 08:54 Dose: Not Given Insulin Human Lispro (Humalog) 0 units SC ACHS [facility]; Protocol Last Admin: 06/17/18 13:00 Dose: 3 units Lactobacillus Acidophilus (Bacid Acidophilus) 1 cap PO DAILY [facility] Last Admin: 06/17/18 08:59 Dose: 1 cap Losartan Potassium (Cozaar) 100 mg PO DAILY [facility] Last Admin: 06/17/18 08:49 Dose: 100 mg Mupirocin (Bactroban Ointment) 1 applic TOP BID [facility] Last Admin: 06/17/18 08:48 Dose: 1 applic Nystatin (Nystop Topical Powder) 1 applic TOP TID [facility] Last Admin: 06/17/18 13:37 Dose: 1 applic Potassium Chloride (Klor-Con 10) 10 meq PO DAILY [facility] Last Admin: 06/17/18 08:53 Dose: 10 meq - Labs Labs: 06/16/18 04:20 06/16/18 04:20 PT 17.8 Seconds (9.8-13.1) H 06/14/18 01:50 INR 1.6 06/14/18 01:50 APTT 36.4 Seconds (25.6-37.1) 06/09/18 15:35 - Constitutional Appears: Well, Non-toxic, No Acute Distress - Extremities Exam Additional comments: Left LE focused exam, R LE BKA Vasc: DP/PT pulses faintly palpable 1/4. Temp gradient warm to cool from proximal to distal. Cap refill < 3 seconds to all digits. No edema or erythema noted. Neuro: Protective sensation grossly diminished. Derm: Approximatly 2.6 cm x 1.7 cm X0.2 cm Oval ulceration noted to plantar/posterior left heel. Wound have fibrous and granular base 70:30. No probe to bone. no malodor. No drainage. No tracking, tunneling or undermining appreciated. No erythema MSK: Rigid contractures of all digits 1-5. Limited ROM at all major joints and diffuse arthritic changes. Muscle power 5/5 in all groups. No pain on palpating the abby-ulcerative area. - Neurological Exam Neurological Exam: Alert, Awake - Psychiatric Exam Psychiatric exam: Normal Affect, Normal Mood Assessment and Plan - Assessment and Plan (Free Text) Assessment: 62 y/o F patient seen and evaluated for an ulcer of the L heel Plan: Patient seen and evaluated at the bedside. Plan discussed with Dr. Houston. Charts, Labs and vitals reviewed: Afebrile, WBC 8.3 LE MRI (05/02): possible early acute and or developing acute osteomyelitis with possible underlying cellulitis Multipodus boot to be worn at all times while in bed Wound dressed with bactroban, DSD No plan for surgical intervention at this time. Vascular are onboard - plan for peripheral angiogram at [facility] on Tuesday, keep patient on DAPT CTA abdomen and LE: atent abd aorta. Iliacs patient with mild to moderate atherosclerotic changes. Moderta arterial disease proximal and midsegment in SFA, SeveModerated to sever distal segment. Mild to moderated distal poplital A disease. 2 vessel L LE runoff with perineal occluded at the midsegment Patient to follow up with Dr. Houston in his office upon discharge. Podiatry will continue to follow while patient in house.
--- NOTE | 2018-06-17 15:18 | CP.PCM.PN ---
Subjective - Date & Time of Evaluation Date of Evaluation: 06/17/18 Time of Evaluation: 15:14 - Subjective Subjective: Podiatry progress notes for attending Dr. Ghotra: 80 year old female seen and evaluated in the bedside for left foot pain, redness and ulcerations. Patient is AAO X 3. Patient states that she is still having pain in her left leg. Patient denies any other pedal complaint at this time. Patient denies any overnight F/N/V/C or SOB. Objective - Vital Signs/Intake and Output Vital Signs (last 24 hours): Temp Pulse Resp BP Pulse Ox 97.9 F 62 16 171/77 H 97 06/17/18 05:00 06/17/18 08:49 06/17/18 05:00 06/17/18 08:49 06/17/18 05:00 - Medications Medications: Current Medications Apixaban (Eliquis) 5 mg PO Q12 [facility]; Protocol Last Admin: 06/17/18 08:50 Dose: 5 mg Aspirin (Aspirin Chewable) 81 mg PO DAILY [facility] Last Admin: 06/17/18 08:47 Dose: 81 mg Atorvastatin Calcium (Lipitor) 10 mg PO HS [facility] Last Admin: 06/16/18 22:23 Dose: 10 mg Bacitracin (Bacitracin) 1 ea TOP TID [facility] Last Admin: 06/17/18 13:22 Dose: 1 ea Donepezil HCl (Aricept) 10 mg PO DAILY [facility] Last Admin: 06/17/18 08:47 Dose: 10 mg Famotidine (Pepcid) 20 mg PO DAILY [facility] Last Admin: 06/17/18 08:58 Dose: 20 mg Gabapentin (Neurontin) 400 mg PO Q8H [facility] Last Admin: 06/17/18 08:56 Dose: 400 mg Home Med (Cyclosporine [Restasis]) 1 drop EACHEYE Q12 [facility] Last Admin: 06/17/18 08:50 Dose: 1 drop Cefepime HCl 1 gm/ Sodium (Chloride) 100 mls @ 100 mls/hr IVPB Q12 [facility]; Protocol Last Admin: 06/17/18 08:54 Dose: 100 mls/hr Insulin Detemir (Levemir) 15 units SC HS [facility] Last Admin: 06/16/18 22:24 Dose: 15 units Insulin Detemir (Levemir) 10 units SC QAM [facility] Last Admin: 06/17/18 08:54 Dose: Not Given Insulin Human Lispro (Humalog) 0 units SC ACHS [facility]; Protocol Last Admin: 06/17/18 13:00 Dose: 3 units Lactobacillus Acidophilus (Bacid Acidophilus) 1 cap PO DAILY [facility] Last Admin: 06/17/18 08:59 Dose: 1 cap Losartan Potassium (Cozaar) 100 mg PO DAILY [facility] Last Admin: 06/17/18 08:49 Dose: 100 mg Mupirocin (Bactroban Ointment) 1 applic TOP BID [facility] Last Admin: 06/17/18 08:48 Dose: 1 applic Nystatin (Nystop Topical Powder) 1 applic TOP TID [facility] Last Admin: 06/17/18 13:37 Dose: 1 applic Potassium Chloride (Klor-Con 10) 10 meq PO DAILY [facility] Last Admin: 06/17/18 08:53 Dose: 10 meq - Labs Labs: 06/16/18 04:20 06/16/18 04:20 PT 17.8 Seconds (9.8-13.1) H 06/14/18 01:50 INR 1.6 06/14/18 01:50 APTT 36.4 Seconds (25.6-37.1) 06/09/18 15:35 - Constitutional Appears: Well, Non-toxic, No Acute Distress - Head Exam Head Exam: ATRAUMATIC, NORMOCEPHALIC - Extremities Exam Additional comments: LE focused exam: Vasc: DP/PT faintly palpable 1/4 b/l, Cap refill delayed = 4 sec to all digits, Temp gradient warm to warm from proximal to distal in the left side. And warm to cool from proximal to distal to the right side. +2 pitting edema on the right side and mild non pitting edema on the left side. Erythema extending from the left foot to the mid-calf on the left side. erythema noted to be less than yesterday. Neuro: Gross and protective sensations deminished b/l. Derm: Erythema extending from the left foot to the midcalf on the left side. 2 ulcerations noted on the left side. 1st one is medial malleolar ulcer which is 9.5 X 4.0 X 0.2. Base is fibrogranular 60:40, Minimal serous drainage. No malodor, no probe to bone. No tunneling, undermining or tracking. 2nd one is posterior heel ulcer which is 4.5 X 2.0 X 0.3. Base is fibrogranular 70:30, Minimal serous drainage. No malodor, no probe to bone. No tunneling, undermining or tracking. both ulcers surrounded by erythema (less than yesterday) and mild non pitting edema. Positive clinical signs of active infection. Left inter-spaces 1-4 shows interdigital macerations. Toe nails elongated, thickened and dystrophic in all digits. MSK: Pain on palpating left LE. Pain on palpating the abby-wound areas. - Neurological Exam Neurological Exam: Alert, Awake, Oriented x3 - Psychiatric Exam Psychiatric exam: Normal Affect, Normal Mood Assessment and Plan - Assessment and Plan (Free Text) Assessment: 80 y/o F patient seen and evaluated in the ED for Left LE ulcerations, cellulitis and PVD. Plan: Patient seen and evaluated in the bedside. Plan discussed in details with attending Dr. Ghotra. Chart, labs and vitals reviewed; Afebrile, WBCs 12.5(06/15) X-ray left foot reviewed: Diffuse osteoporosis, No evidence of Osteomyelitis. X-ray left ankle reviewed: Diffuse osteoporosis, Some erosions noted at the medial malleolous. LE venous duplex reviewed; No evidence of DVT. LE arterial duplex done; Stenotic lesions distal SFA 50-69% narrowing with occluded PT artery. Stenotic disease in the DP artery 50-69% Wound culture Pseudomonas aerogenosa, beta hemolytic strept.. CTA LE: Diffuse calcifications but no occlusion. Possible moderate stenosis in the R distal PT artery. MRI done 06/15: no pattern to suggest OM throughout the forefoot and midfoot; osteoarthritis at midfoot>forefoot; no abscess or fluid collection; no fracture or dislocations ID onboard. recommendations appreciated Continue IV Abx as per ID - cefepime, vanco Vascular surgery Onboard. recommendations appreciated Ulcer dressed using bactroban and DSD. Podiatry will continue to follow up the patient while in house
--- NOTE | 2018-06-17 19:08 | PN ---
DATE: 06/17/2018 SUBJECTIVE: The patient denies any chest pain, dizziness, or shortness of breath. No reported bradyarrhythmia. PHYSICAL EXAMINATION: VITAL SIGNS: Blood pressure 171/77, heart rate 62, temperature 97.9, respirations 16. HEENT: Normocephalic. CHEST: Clear. HEART: S1 and S2, regular. EXTREMITIES: Right below-knee amputation and dressing is applied to the left heel ulcer. LABORATORY DATA: Today's hemoglobin and hematocrit 10.9 and 33.1, white count and platelet count are within normal limits. SMA-7: Sodium 140, potassium 4.1, chloride 112, CO2 of 26. glucose 141, BUN 14, and creatinine 1. Foot and ankle MRIs were performed, but the reports are still pending. ASSESSMENT: 1. Status post syncopal episode with high-grade atrioventricular block on admission. 2. Peripheral vascular disease, status post right below-knee amputation and non-healing left heel ulcer. 3. Uncontrolled diabetes mellitus. 4. Dementia. RECOMMENDATIONS: Continue aspirin 81 mg once a day, IV cefepime at 1 g every 12 hours, Cozaar 500 mg once a day, Eliquis at 5 mg twice a day, Klor-Con 10 mEq daily, and Lipitor 10 mg once a day. Tommy Willett MD
--- NOTE | 2018-06-17 21:17 | MRI ---
Date of service: 06/17/2018 PROCEDURE: MRI of the left ankle without contrast HISTORY: f/u OM COMPARISON: No prior similar study available for comparison TECHNIQUE: Axial coronal and sagittal MRI images of the left ankle were obtained without IV contrast administration using multiple sequences FINDINGS: There is no evidence of bone marrow edema or cortical erosion in the left ankle. Mild diffuse soft tissue edema is noted. There is mild posterior tibialis tendinopathy noted. Otherwise the tendons and ligaments demonstrate no acute pathology. Mild arthritic degenerative changes are noted. IMPRESSION: No evidence of acute osteomyelitis. Mild posterior tibialis tendinopathy. Mild soft tissue edema.
--- NOTE | 2018-06-17 21:40 | MRI ---
Date of service: 06/17/2018 PROCEDURE: MRI of the left foot without contrast HISTORY: f/u on OM COMPARISON: No prior similar study available for comparison. The patient had x-ray of left foot on 06/10/2018 TECHNIQUE: Axial coronal and sagittal MRI images of the left foot were obtained without contrast administration. FINDINGS: There is bone marrow edema and possible small cortical erosion at the distal head of the 4th metatarsal bone more prominent at the dorsal portion of the metatarsal head. Findings suspicious for acute osteomyelitis. The assessment of the soft tissue is suboptimal without IV contrast administration. There is no evidence of discrete fluid collection. Mild soft tissue edema noted around the distal portion of the 4th metatarsal bone. IMPRESSION: Abnormal bone marrow signal and possible cortical erosion at the distal head of the 4th metatarsal bone suspicious for osteomyelitis.
--- NOTE | 2018-06-18 03:46 | PN ---
DATE: 06/17/2018 SUBJECTIVE: The patient is seen today, 06/17/2018. She is more awake and alert. PHYSICAL EXAMINATION: VITAL SIGNS: Blood pressure is 136/65, temperature 98.9, respiratory rate 16, and pulse 69. HEENT: Pupils equal, reactive to light. Normal-appearing mucosa of the conjunctivae, oropharyngeal and nasal membrane mucosa. NECK: Supple. No JVD. No carotid bruit. No lymph node. No thyromegaly. CARDIOPULMONARY: PMI not localized. S1, S2. No additional sounds. CHEST: Lungs, bilateral symmetrical expansion. Good air exchange. No rales, no rhonchi. ABDOMEN: Normoactive bowel sounds. No tenderness. No organomegaly. No masses. EXTREMITIES: Right BKA and left foot ulcer. VENEER DRIER TAILER: Alert, awake, oriented x2. The patient moves all extremities equally. ASSESSMENT: Toxic metabolic encephalopathy, diabetic foot, status post symptomatic bradycardia secondary to beta-alexa, type 2 diabetes mellitus, diabetic neuropathy. PLAN: Continue current antibiotics and follow ID recommendations. Social service and case management for discharge planning. Continue current medications. Cyndie Orellana MD
[2018-06-18] MEDS: Insulin Lispro (humaLOG) 100 Units/ml Inj SC SCH ×4 (08:42→21:47)
[2018-06-18] MEDS: Bacitracin 500 Units/gm Oint Foilpak UD TOP SCH ×3 (10:25→17:03)
[2018-06-18] MEDS: Lactobacillus Acidophilus 500 MU Cap PO SCH (10:44)
[2018-06-18] MEDS: Potassium Chloride 10 mEq ER Tab PO SCH (10:44)
[2018-06-18] MEDS: Cefepime 1 GM in Sodium Chloride 0.9% 100 ML IVPB SCH ×2 (10:44→21:43)
[2018-06-18] MEDS: Patient's Own Med (Cyclosporine [Restasis] 1 DROP) EACHEYE SCH ×2 (14:45→22:00)
[2018-06-18] MEDS: Insulin Detemir 100 Units/ml Inj SC SCH ×2 (17:06→21:47)
--- NOTE | 2018-06-19 02:30 | PN ---
DATE: 06/18/2018 DAILY PROGRESS NOTE SUBJECTIVE: The patient is seen today, 06/18/2018. The patient is more awake and alert, and she was eating breakfast at that time. PHYSICAL EXAMINATION: VITAL SIGNS: Blood pressure 149/83, temperature 98.9, respiratory rate 16, and pulse 71. HEENT: Pupils equal and reactive to light. Normal appearing mucosa of the conjunctivae, oropharynx, and nasal membrane mucosa. NECK: Supple. No JVD. No carotid bruit. No lymph node. No thyromegaly. CHEST AND LUNGS: Decreased air entry in both lower lung guthrie. CARDIOVASCULAR SYSTEM: PMI not localized. S1 and S2. No additional sounds. ABDOMEN: Normoactive bowel sounds. No tenderness. No organomegaly. No masses. EXTREMITIES: Right BKA and left foot ulcer. CENTRAL NERVOUS SYSTEM: Alert, awake, oriented x2. Moves all extremities equally. ASSESSMENT: 1. Diabetic foot with infected ulcer, on intravenous antibiotics. 2. Intertrigo on the lower abdomen as well as on the lower back. 3. Type 2 diabetes mellitus. 4. Diabetic neuropathy. 5. Peripheral vascular disease. 6. Status post right below-knee amputation. PLAN: Current continue medications and physical therapy and plan to discharge to subacute rehab. Cyndie Orellana MD
--- NOTE | 2018-06-19 05:57 | CARD ---
APPROVED REPORT Date of service: 06/18/2018 EKG Measurement Heart [id number] <Conclusion> Normal sinus rhythm Possible inferior infarct, age undetermined Abnormal ECG
--- NOTE | 2018-06-19 06:59 | CP.PCM.PN ---
Addendum entered and electronically signed by Dima Nieto DPM 06/19/18 11:19: Patient is going tomorrow to [facility] for angio instead of today. Addendum entered and electronically signed by Dima Nieto DPM 06/19/18 11:08: Physical exam: There is no signs of active bacterial nfection at the level of the 4th left toe and the 4th left MPJ (No swelling, erythema, hotness or tenderness). Addendum entered and electronically signed by Dima Nieto DPM 06/19/18 08:45: MRI L foot (06/16): Abnormal bone marrow signal and possible cortical erosion at the distal head of the 4th met. suspicious for osteomyelitis. Left Ankle MRI (06/16): No evidence of osteomyelitis. Mild posterior tendinopathy. Mild soft tissue edema. Original Note: Subjective - Date & Time of Evaluation Date of Evaluation: 06/19/18 Time of Evaluation: 08:34 - Subjective Subjective: Podiatry progress note for Dr. Houston 62 y/o F patient seen and evaluated at the bedside for left heel ulcer. Patient still confused. Patient was sleeping in her bed at the visit time. Patient is currently on 6 weeks of IV ABx for her left foot acute OM and has a PICC line. As per the patient chart there was no overnight N/V/F/C or SOB. Patient is going today to [facility] for left LE angio. Objective - Vital Signs/Intake and Output Vital Signs (last 24 hours): Temp Pulse Resp BP Pulse Ox 97.5 F L 58 L 18 163/84 H 100 06/19/18 05:00 06/19/18 05:00 06/19/18 05:00 06/19/18 05:00 06/19/18 05:00 Intake and Output: 06/18/18 06/19/18 18:59 06:59 Intake Total 510 Output Total 800 Balance -290 - Medications Medications: Current Medications Apixaban (Eliquis) 5 mg PO Q12 [facility]; Protocol Last Admin: 06/18/18 21:46 Dose: 5 mg Aspirin (Aspirin Chewable) 81 mg PO DAILY [facility] Last Admin: 06/18/18 10:25 Dose: 81 mg Atorvastatin Calcium (Lipitor) 10 mg PO HS [facility] Last Admin: 06/18/18 21:46 Dose: 10 mg Bacitracin (Bacitracin) 1 ea TOP TID [facility] Last Admin: 06/18/18 17:03 Dose: 1 ea Donepezil HCl (Aricept) 10 mg PO DAILY [facility] Last Admin: 06/18/18 10:25 Dose: 10 mg Famotidine (Pepcid) 20 mg PO DAILY [facility] Last Admin: 06/18/18 10:31 Dose: 20 mg Gabapentin (Neurontin) 400 mg PO Q8H [facility] Last Admin: 06/19/18 00:08 Dose: 400 mg Home Med (Cyclosporine [Restasis]) 1 drop EACHEYE Q12 [facility] Last Admin: 06/18/18 22:00 Dose: 1 drop Cefepime HCl 1 gm/ Sodium (Chloride) 100 mls @ 100 mls/hr IVPB Q12 [facility]; Protocol Last Admin: 06/18/18 21:43 Dose: 100 mls/hr Insulin Detemir (Levemir) 15 units SC HS [facility] Last Admin: 06/18/18 21:47 Dose: 15 units Insulin Detemir (Levemir) 10 units SC QAM [facility] Last Admin: 06/18/18 17:06 Dose: Not Given Insulin Human Lispro (Humalog) 0 units SC ACHS [facility]; Protocol Last Admin: 06/18/18 21:47 Dose: Not Given Ketorolac Tromethamine (Toradol) 15 mg IVP Q6 PRN PRN Reason: Pain, moderate (4-7) Last Admin: 06/18/18 18:20 Dose: 15 mg Lactobacillus Acidophilus (Bacid Acidophilus) 1 cap PO DAILY [facility] Last Admin: 06/18/18 10:44 Dose: 1 cap Losartan Potassium (Cozaar) 100 mg PO DAILY [facility] Last Admin: 06/18/18 10:28 Dose: 100 mg Mupirocin (Bactroban Ointment) 1 applic TOP BID [facility] Last Admin: 06/18/18 17:03 Dose: 1 applic Nystatin (Nystop Topical Powder) 1 applic TOP TID [facility] Last Admin: 06/18/18 17:07 Dose: 1 applic Potassium Chloride (Klor-Con 10) 10 meq PO DAILY [facility] Last Admin: 06/18/18 10:44 Dose: 10 meq - Labs Labs: 06/16/18 04:20 06/16/18 04:20 PT 17.8 Seconds (9.8-13.1) H 06/14/18 01:50 INR 1.6 06/14/18 01:50 APTT 36.4 Seconds (25.6-37.1) 06/09/18 15:35 - Constitutional Appears: Well, Non-toxic, No Acute Distress - Head Exam Head Exam: ATRAUMATIC, NORMOCEPHALIC - Extremities Exam Additional comments: Left LE focused exam, R LE BKA Vasc: DP/PT pulses faintly palpable /4. Temp gradient warm to cool from proximal to distal. Cap refill < 3 seconds to all digits. No edema or erythema noted. Neuro: Protective sensation grossly diminished. Derm: Approximatly 2.6 cm x 1.7 cm X0.2 cm Oval ulceration noted to plantar/posterior left heel. Wound have fibrous and granular base 50:50. No probe to bone. no malodor. No drainage. No tracking, tunneling or undermining appreciated. No erythema MSK: Rigid contractures of all digits 1-5. Limited ROM at all major joints and diffuse arthritic changes. Muscle power 5/5 in all groups. No pain on palpating the abby-ulcerative area. - Neurological Exam Neurological Exam: Alert, Awake Neuro motor strength exam: Left Upper Extremity: 0, Right Upper Extremity: 0, Le ft Lower Extremity: 0, Right Lower Extremity: 0 - Psychiatric Exam Psychiatric exam: Normal Affect, Normal Mood Assessment and Plan - Assessment and Plan (Free Text) Assessment: 62 y/o F patient seen and evaluated for an ulcer of the L heel Plan: Patient seen and evaluated at the bedside. Plan discussed with Dr. Houston. Charts, Labs and vitals reviewed: Afebrile, WBC 8.3 LE MRI (05/02): possible early acute and or developing acute osteomyelitis with possible underlying cellulitis Multipodus boot to be worn at all times while in bed Wound dressed with bactroban, DSD No plan for surgical intervention at this time. Vascular are onboard, Recommendations appreciated. CTA abdomen and LE: atent abd aorta. Iliacs patient with mild to moderate atherosclerotic changes. Moderta arterial disease proximal and midsegment in SFA, SeveModerated to sever distal segment. Mild to moderated distal poplital A disease. 2 vessel L LE runoff with perineal occluded at the midsegment Patient is going today to [facility] for left LE angio. Patient to follow up with Dr. Houston in his office upon discharge. Podiatry will continue to follow while patient in house.
--- NOTE | 2018-06-19 08:46 | PN ---
DATE: 06/18/2018 SUBJECTIVE: The patient was noted to have T-wave inversion on the delivery person. The patient denies any chest pain or shortness of breath at this time. corporate responsibility officer heart rate was 61, currently 71. PHYSICAL EXAMINATION: VITAL SIGNS: Blood pressure 149/83, heart rate 71, temperature 97.6, respirations 18. HEENT: Normocephalic. CHEST: Clear. HEART: S1 and S2 regular. EXTREMITIES: Right below knee amputation and dressings applied to the left heel ulcer. ASSESSMENT: 1. Status post syncopal episode on admission with high grade atrioventricular block at that time. The patient has periods of sinus bradycardia, but are asymptomatic at this time. 2. Peripheral vascular disease status post right below knee amputation with chronic left heel ulcer. 3. Uncontrolled diabetes mellitus. Today's blood sugars are 156 and 377 respectively. RECOMMENDATION: Continue aspirin 81 mg once a day, IV cefepime 1 g every 12 hours, Eliquis 5 mg twice a day, Klor-Con 10 mEq daily, Lipitor 10 mg once a day, Neurontin 400 mg every 8 hours, Toradol 15 mg intravenously every 6 hours p.r.n. I did request 12-lead EKG and I will review it. Tommy Willett MD
[2018-06-19] MEDS: Bacitracin 500 Units/gm Oint Foilpak UD TOP SCH ×3 (10:10→16:11)
[2018-06-19] MEDS: Patient's Own Med (Cyclosporine [Restasis] 1 DROP) EACHEYE SCH ×2 (10:11→21:04)
[2018-06-19] MEDS: Insulin Lispro (humaLOG) 100 Units/ml Inj SC SCH ×4 (10:11→22:29)
[2018-06-19] MEDS: Lactobacillus Acidophilus 500 MU Cap PO SCH (10:13)
[2018-06-19] MEDS: Insulin Detemir 100 Units/ml Inj SC SCH ×2 (10:14→22:28)
[2018-06-19] MEDS: Cefepime 1 GM in Sodium Chloride 0.9% 100 ML IVPB SCH ×2 (10:15→21:28)
[2018-06-19] MEDS: Potassium Chloride 10 mEq ER Tab PO SCH (10:17)
--- NOTE | 2018-06-19 13:43 | CP.PCM.PN ---
Subjective - Date & Time of Evaluation Date of Evaluation: 06/19/18 Time of Evaluation: 13:42 - Subjective Subjective: ID note- Pt. seen and examined today. no fever . spoke with posiatry team today and as per them no evidence of OM at the 4th toe region and MRI reading not c/w clinical findings. as per podiatry pt going for angio tomm at [facility] for possible LE revascularization but no podiatric surgical intervention planned at this time. Objective - Vital Signs/Intake and Output Vital Signs (last 24 hours): Temp Pulse Resp BP Pulse Ox 97.5 F L 67 18 178/81 H 100 06/19/18 12:15 06/19/18 12:15 06/19/18 12:15 06/19/18 12:15 06/19/18 12:15 Intake and Output: 06/19/18 06/19/18 06:59 18:59 Intake Total 510 Output Total 800 Balance -290 - Medications Medications: Current Medications Apixaban (Eliquis) 5 mg PO Q12 [facility]; Protocol Last Admin: 06/19/18 10:09 Dose: 5 mg Aspirin (Aspirin Chewable) 81 mg PO DAILY [facility] Last Admin: 06/19/18 10:11 Dose: 81 mg Atorvastatin Calcium (Lipitor) 10 mg PO HS [facility] Last Admin: 06/18/18 21:46 Dose: 10 mg Bacitracin (Bacitracin) 1 ea TOP TID [facility] Last Admin: 06/19/18 10:10 Dose: 1 ea Donepezil HCl (Aricept) 10 mg PO DAILY [facility] Last Admin: 06/19/18 10:11 Dose: 10 mg Famotidine (Pepcid) 20 mg PO DAILY [facility] Last Admin: 06/19/18 10:11 Dose: 20 mg Gabapentin (Neurontin) 400 mg PO Q8H [facility] Last Admin: 06/19/18 10:10 Dose: 400 mg Home Med (Cyclosporine [Restasis]) 1 drop EACHEYE Q12 [facility] Last Admin: 06/19/18 10:11 Dose: 1 drop Cefepime HCl 1 gm/ Sodium (Chloride) 100 mls @ 100 mls/hr IVPB Q12 [facility]; Protocol Last Admin: 06/19/18 10:15 Dose: 100 mls/hr Insulin Detemir (Levemir) 15 units SC HS [facility] Last Admin: 06/18/18 21:47 Dose: 15 units Insulin Detemir (Levemir) 10 units SC QAM [facility] Last Admin: 06/19/18 10:14 Dose: 10 units Insulin Human Lispro (Humalog) 0 units SC ACHS [facility]; Protocol Last Admin: 06/19/18 13:07 Dose: 2 units Ketorolac Tromethamine (Toradol) 15 mg IVP Q6 PRN PRN Reason: Pain, moderate (4-7) Last Admin: 06/18/18 18:20 Dose: 15 mg Lactobacillus Acidophilus (Bacid Acidophilus) 1 cap PO DAILY [facility] Last Admin: 06/19/18 10:13 Dose: 1 cap Losartan Potassium (Cozaar) 100 mg PO DAILY [facility] Last Admin: 06/19/18 10:10 Dose: 100 mg Mupirocin (Bactroban Ointment) 1 applic TOP BID [facility] Last Admin: 06/19/18 10:13 Dose: 1 applic Nystatin (Nystop Topical Powder) 1 applic TOP TID [facility] Last Admin: 06/19/18 13:09 Dose: 1 applic Potassium Chloride (Klor-Con 10) 10 meq PO DAILY [facility] Last Admin: 06/19/18 10:17 Dose: 10 meq - Labs Labs: - Additional Findings Additional findings: - Constitutional Appears: No Acute Distress - Head Exam Head Exam: ATRAUMATIC - ENT Exam ENT Exam: Normal Oropharynx - Neck Exam Neck exam: Positive for: Full Rom - Respiratory Exam Respiratory Exam: Clear to Auscultation Bilateral, NORMAL BREATHING PATTERN - Cardiovascular Exam Cardiovascular Exam: RRR, +S1, +S2 - GI/Abdominal Exam GI & Abdominal Exam: Normal Bowel Sounds, Soft Additional comments: NT, ND - Extremities Exam Additional comments: Right BKA site clean/dry/Intact left heel about 4 x 6 cm wound without any malodor,no discharge no surrounding erythema - Neurological Exam Neurological exam: Alert, Oriented x3 - Skin Additional comments: fungal rash under b/l breast and b/l groin region and b/l gluteus region and b/l axilla extensive but much improved Laboratory Results - last 72 hr 06/16/18 06/17/18 06/17/18 21:29 05:43 11:39 POC Glucose (mg/dL) 180 H 143 H 274 H 06/17/18 06/18/18 06/18/18 16:03 05:56 12:22 POC Glucose (mg/dL) 325 H 156 H 377 H 06/18/18 06/18/18 06/19/18 16:16 21:39 05:28 POC Glucose (mg/dL) 204 H 180 H 134 H 06/19/18 06/19/18 11:21 16:08 POC Glucose (mg/dL) 238 H 213 H Microbiology 06/09/18 15:05 Blood Blood Culture - Final NO GROWTH AFTER 5 DAYS 06/09/18 15:05 Blood Gram Stain - Final TEST NOT PERFORMED 06/09/18 15:20 Blood Blood Culture - Final NO GROWTH AFTER 5 DAYS 06/09/18 15:20 Blood Gram Stain - Final TEST NOT PERFORMED 06/10/18 05:00 Naris MRSA Culture (Admit) - Final MRSA DETECTED 06/09/18 18:34 Urine,Catheterized Urine Culture - Final No Growth (<1,000 CFU/ML) Accession No. : [id number] Patient Name / ID : ZAN SANCHEZ / [id number] Exam Date : 06/17/2018 10:26:47 ( Approved ) Study Comment : Sex / Age : F / 62Y Creator : Yunior Barahona MD Dictator : Yunior Barahona MD Mlt : Pocket Closer : Yunior Barahona MD Approver2 : Report Date : 06/17/2018 21:34:34 My Comment : Date of service: 06/17/2018 PROCEDURE: MRI of the left foot without contrast HISTORY: f/u on OM COMPARISON: No prior similar study available for comparison. The patient had x-ray of left foot on 06/10/2018 TECHNIQUE: Axial coronal and sagittal MRI images of the left foot were obtained without contrast administration. FINDINGS: There is bone marrow edema and possible small cortical erosion at the distal head of the 4th metatarsal bone more prominent at the dorsal portion of the metatarsal head. Findings suspicious for acute osteomyelitis. The assessment of the soft tissue is suboptimal without IV contrast administration. There is no evidence of discrete fluid collection. Mild soft tissue edema noted around the distal portion of the 4th metatarsal bone. IMPRESSION: Abnormal bone marrow signal and possible cortical erosion at the distal head of the 4th metatarsal bone suspicious for osteomyelitis. Study Comment : Sex / Age : F / 62Y Creator : Yunior Barahona MD Dictator : Yunior Barahona MD Mlt : Pocket Closer : Yunior Barahona MD Approver2 : Report Date : 06/17/2018 21:11:49 My Comment : Date of service: 06/17/2018 PROCEDURE: MRI of the left ankle without contrast HISTORY: f/u OM COMPARISON: No prior similar study available for comparison TECHNIQUE: Axial coronal and sagittal MRI images of the left ankle were obtained without IV contrast administration using multiple sequences FINDINGS: There is no evidence of bone marrow edema or cortical erosion in the left ankle. Mild diffuse soft tissue edema is noted. There is mild posterior tibialis tendinopathy noted. Otherwise the tendons and ligaments demonstrate no acute pathology. Mild arthritic degenerative changes are noted. IMPRESSION: No evidence of acute osteomyelitis. Mild posterior tibialis tendinopathy. Mild soft tissue edema. Assessment and Plan (1) Non-healing wound of left heel Status: Acute (2) Status post below knee amputation of right lower extremity Status: Acute (3) Diabetes Status: Acute (4) Intertrigo Status: Acute (5) Intertrigo Status: Acute - Assessment and Plan (Free Text) Assessment: A/P- 62 year old female with multiple medical conditions including DM II, CAd, HTN, h/o OM of right leg s/p right leg BKA, left heel nonhealing diabetic wound s/p debridement at [facility] a month ago has been on IV abx for pseudomoal infection of the left heel wound for past month as per Id doc at the other hospital who is now admitted for ? syncopal epsiode . she remains afebrile minimal leukocytosis has resolved. MRSA on nasal screening blood cx- neg x 2 urien cx- neg high ESR MRI report both noted- no OM of heel reported, ? om of left fourth digit, however as per Podiatry no clinical evidence of OM at fourth digit and no podiatry surgical intervention planned at this time. pt. going for LE angiogram at [facility] Plan- advise to continue with IV cefepime as pt. has responded well to this for the treatment of the left heel pseudomonas infection. ? OM has been on this for the past 4 weeks already at [facility] and also since admission here day #15. advise 4 more days of IV cefepime to complete total of 6 weeks. local wound care and close f/u with podiatry. All labs and imaging and notes reviewed.
--- NOTE | 2018-06-19 17:44 | RAD ---
Date of service: 06/19/2018 HISTORY: confirming picc line placement COMPARISON: 06/09/2018 FINDINGS: LUNGS: No active pulmonary disease. PLEURA: No significant pleural effusion identified, no pneumothorax apparent. CARDIOVASCULAR: No radiographic findings to suggest acute or significant cardiovascular disease. OSSEOUS STRUCTURES: No significant abnormalities. VISUALIZED UPPER ABDOMEN: Normal. OTHER FINDINGS: The tip of the PICC line is in the right axilla, at least 12 cm from the thorax. IMPRESSION: Improperly positioned PICC line implying a right upper extremity approach. The finding is marked on the study for review.
--- NOTE | 2018-06-19 19:41 | PN ---
DATE: 06/19/2018 SUBJECTIVE: The patient is in a better mood today. She is laughing. She denies any chest pain. PHYSICAL EXAMINATION: VITAL SIGNS: Blood pressure 159/84, heart rate 72, temperature 97.8, respirations 20. HEENT: Normocephalic. CHEST: Clear. HEART: S1 and S2 regular. EXTREMITIES: Right below knee amputation and dressings were applied to the left foot ulcer. LABORATORY DATA: Today's blood sugars are 134, 238 and 250 respectively. Blood culture is negative as per 5 days. ASSESSMENT: 1. Status post syncopal episode and high grade atrioventricular block on admission. 2. Reported T-wave inversion on the telemetry monitoring yesterday. EKG was done yesterday and revealed sinus rhythm at 61 with possible old infarct; however, the EKG is no different from the admitting EKG. 3. Peripheral vascular disease status post right below knee amputation with chronic left heel ulcer. RECOMMENDATION: Continue aspirin 81 mg once a day, IV cefepime 1 gm every 12 hours, Cozaar 100 mg once a day, Eliquis 5 mg twice a day, Klor-Con 10 mEq once a day, Lipitor 10 mg once a day. Tommy Willett MD
--- NOTE | 2018-06-20 01:24 | PN ---
DATE: 06/19/2018 DAILY PROGRESS NOTE SUBJECTIVE: The patient is seen today, 06/19/2018. She is more awake and alert. PHYSICAL EXAMINATION: VITAL SIGNS: Blood pressure is 164/77, temperature 97.2, respiratory rate 18, and pulse 69. HEENT: Pupils equal and reactive to light. Positive blindness of the left eye. NECK: Supple. No JVD. No carotid bruit. No lymph node. No thyromegaly. CHEST AND LUNGS: Bilateral symmetrical expansion. Good air exchange. No rales. No rhonchi. CARDIOVASCULAR SYSTEM: PMI not localized. S1 and S2. No additional sounds. ABDOMEN: Decreased bowel sounds. No tenderness. No organomegaly. No masses. EXTREMITIES: Right BKA. Left foot ulcer. CENTRAL NERVOUS SYSTEM: Awake and oriented x2. Moves all extremities equally. ASSESSMENT AND PLAN: 1. Severe peripheral vascular disease, for angiogram by Dr. Israel in [facility] [place] in the morning. 2. Osteomyelitis of the left foot, has been on intravenous antibiotics for more than four weeks. 3. Type 2 diabetes mellitus. 4. Hypertension. [facility] MD Esteban
[2018-06-20] MEDS: Bacitracin 500 Units/gm Oint Foilpak UD TOP SCH ×2 (16:24→17:18)
[2018-06-20] MEDS: Patient's Own Med (Cyclosporine [Restasis] 1 DROP) EACHEYE SCH ×2 (16:25→21:32)
[2018-06-20] MEDS: Insulin Detemir 100 Units/ml Inj SC SCH ×2 (16:26→21:34)
[2018-06-20] MEDS: Insulin Lispro (humaLOG) 100 Units/ml Inj SC SCH ×3 (16:26→21:34)
[2018-06-20] MEDS: Cefepime 1 GM in Sodium Chloride 0.9% 100 ML IVPB SCH ×2 (16:27→21:36)
[2018-06-20] MEDS: Potassium Chloride 10 mEq ER Tab PO SCH (17:14)
[2018-06-20] MEDS: Lactobacillus Acidophilus 500 MU Cap PO SCH (17:16)
--- NOTE | 2018-06-21 01:00 | PN ---
DATE: 06/20/2018 SUBJECTIVE: The patient is seen today 06/20/2018. She had an interventional peripheral vascular procedure done in [facility] by Dr. Israel today. PHYSICAL EXAMINATION: VITAL SIGNS: Blood pressure 178/80, temperature 97.8, respiratory rate 20 and pulse 76. HEENT: Pupils equal, reactive to light. Blindness of the left eye. NECK: Supple. No JVD. No carotid bruit. No lymph node. No thyromegaly. CHEST AND LUNGS: Bilateral symmetrical expansion. Good air exchange. No rales, no rhonchi. CARDIOVASCULAR SYSTEM: PMI not localized. S1, S2. No additional sounds. ABDOMEN: Normoactive bowel sounds. No tenderness. No organomegaly. No masses. EXTREMITIES: Right BKA and left foot is surgically dressed. CENTRAL NERVOUS SYSTEM: Alert, awake, oriented x2. Moves all extremities equally. ASSESSMENT: Osteomyelitis of the left foot on intravenous antibiotics, peripheral vascular disease, status post revascularization of the left lower extremity, status post right below-knee amputation, type 2 diabetes mellitus, diabetic neuropathy, hypertension. PLAN: Continue current medications as per Cardiology as well as Infectious Disease. Cyndie Orellana MD
--- NOTE | 2018-06-21 07:16 | CP.PCM.PN ---
Subjective - Date & Time of Evaluation Date of Evaluation: 06/21/18 Time of Evaluation: 12:49 - Subjective Subjective: Podiatry progress note for Dr. Houston 62 y/o F patient seen and evaluated at the bedside for left heel ulcer. Patient was sleeping in her bed at the visit time. Patient is currently on 6 weeks of IV ABx for her left foot acute OM and has a PICC line. As per the patient chart there was no overnight N/V/F/C or SOB. Patient underwent left LE angio yesterday at [facility]. Objective - Vital Signs/Intake and Output Vital Signs (last 24 hours): Temp Pulse Resp BP Pulse Ox 99.1 F 67 20 126/75 100 06/21/18 05:00 06/21/18 05:00 06/21/18 05:00 06/21/18 05:00 06/21/18 05:00 - Medications Medications: Current Medications Apixaban (Eliquis) 5 mg PO Q12 [facility]; Protocol Last Admin: 06/20/18 16:26 Dose: Not Given Aspirin (Aspirin Chewable) 81 mg PO DAILY [facility] Last Admin: 06/20/18 17:09 Dose: Not Given Atorvastatin Calcium (Lipitor) 10 mg PO HS [facility] Last Admin: 06/20/18 21:35 Dose: 10 mg Bacitracin (Bacitracin) 1 ea TOP TID [facility] Last Admin: 06/20/18 17:18 Dose: 1 ea Clopidogrel Bisulfate (Plavix) 300 mg PO DAILY [facility] Donepezil HCl (Aricept) 10 mg PO DAILY [facility] Last Admin: 06/20/18 17:15 Dose: 10 mg Famotidine (Pepcid) 20 mg PO DAILY [facility] Last Admin: 06/20/18 17:18 Dose: 20 mg Gabapentin (Neurontin) 400 mg PO Q8H [facility] Last Admin: 06/21/18 01:14 Dose: 400 mg Home Med (Cyclosporine [Restasis]) 1 drop EACHEYE Q12 [facility] Last Admin: 06/20/18 21:32 Dose: 1 drop Cefepime HCl 1 gm/ Sodium (Chloride) 100 mls @ 100 mls/hr IVPB Q12 [facility]; Protocol Last Admin: 06/20/18 21:36 Dose: 100 mls/hr Insulin Detemir (Levemir) 15 units SC HS [facility] Last Admin: 06/20/18 21:34 Dose: 15 units Insulin Detemir (Levemir) 10 units SC QAM [facility] Last Admin: 06/20/18 16:26 Dose: Not Given Insulin Human Lispro (Humalog) 0 units SC ACHS [facility]; Protocol Last Admin: 06/20/18 21:34 Dose: Not Given Ketorolac Tromethamine (Toradol) 15 mg IVP Q6 PRN PRN Reason: Pain, moderate (4-7) Last Admin: 06/18/18 18:20 Dose: 15 mg Lactobacillus Acidophilus (Bacid Acidophilus) 1 cap PO DAILY [facility] Last Admin: 06/20/18 17:16 Dose: 1 cap Losartan Potassium (Cozaar) 100 mg PO DAILY [facility] Last Admin: 06/20/18 17:15 Dose: 100 mg Mupirocin (Bactroban Ointment) 1 applic TOP BID [facility] Last Admin: 06/20/18 17:18 Dose: 1 applic Nystatin (Nystop Topical Powder) 1 applic TOP TID [facility] Last Admin: 06/20/18 17:19 Dose: 1 applic Potassium Chloride (Klor-Con 10) 10 meq PO DAILY [facility] Last Admin: 06/20/18 17:14 Dose: 10 meq - Labs Labs: 06/16/18 04:20 06/16/18 04:20 PT 17.8 Seconds (9.8-13.1) H 06/14/18 01:50 INR 1.6 06/14/18 01:50 APTT 36.4 Seconds (25.6-37.1) 06/09/18 15:35 - Constitutional Appears: Well, Non-toxic, No Acute Distress - Head Exam Head Exam: ATRAUMATIC, NORMOCEPHALIC - Extremities Exam Additional comments: Left LE focused exam, R LE BKA Vasc: DP pulse 2/4. PT pulse faintly palpable 1/4. Temp gradient warm to warm from proximal to distal. Cap refill < 3 seconds to all digits. No edema or hamlet thema noted. Neuro: Protective sensation grossly diminished. Derm: Approximatly 2.3 cm x 1.5 cm X0.2 cm Oval ulceration noted to plantar/posterior left heel. Wound have fibrous and granular base 50:50. No probe to bone. no malodor. No drainage. No tracking, tunneling or undermining appreciated. No erythema. There is no signs of active bacterial infection at the level of the 4th left toe and the 4th left MPJ (No swelling, erythema, hotness or tenderness). MSK: Rigid contracture of all digits 1-5. Limited ROM at all major joints and diffuse arthritic changes. Muscle power 5/5 in all groups. No pain on palpating the abby-ulcerative area. - Neurological Exam Neurological Exam: Alert, Awake Assessment and Plan - Assessment and Plan (Free Text) Assessment: 62 y/o F patient seen and evaluated for a decubitus ulcer of the L heel Plan: Patient seen and evaluated at the bedside. Plan discussed with Dr. Houston. Charts, Labs and vitals reviewed: Afebrile, WBC 8.3 (06/16) LE MRI (05/02): possible early acute and or developing acute osteomyelitis with possible underlying cellulitis Multipodus boot to be worn at all times while in bed Wound dressed with bactroban, DSD MRI L foot (06/16): Abnormal bone marrow signal and possible cortical erosion at the distal head of the 4th met. suspicious for osteomyelitis. Left Ankle MRI (06/16): No evidence of osteomyelitis. Mild posterior tendinopathy. Mild soft tissue edema. No plan for surgical intervention at this time. Vascular are onboard, Recommendations appreciated. CTA abdomen and LE: atent abd aorta. Iliacs patient with mild to moderate atherosclerotic changes. Moderta arterial disease proximal and midsegment in SFA, Sever Moderated to sever distal segment. Mild to moderated distal poplital A disease. 2 vessel L LE runoff with perineal occluded at the midsegment Patient underwent left LE angio yesterday at [facility] (Successful atherotomy of the left SFA). ID plan: - Advise to continue with IV cefepime as pt. has responded well to this for the treatment of the left heel pseudomonas infection. - Advise 4 more days of IV cefepime to complete total of 6 weeks. - Local wound care and close f/u with podiatry. ID recommendations appreciated Patient to follow up with Dr. Houston in his office upon discharge. Podiatry will continue to follow while patient in house.
--- NOTE | 2018-06-21 07:46 | VAS ---
DATE: 06/20/2018 INDICATIONS: The patient is a 62-year-old female, who was admitted to [facility] with gangrene of the toe and I was consulted for evaluation of peripheral vascular disease. She had recently undergone angioplasty of the SFA. CTA of the lower extremities was ordered, which showed high-grade SFA popliteal artery stenosis, and therefore, she was brought back to the dentures lab technician for planned atherectomy of the SFA. PROCEDURE PERFORMED: Left lower extremity arterial angiogram with runoff, distal abdominal aortogram with bilateral iliac runoff, atherectomy and [employer] with drug-coated balloon of left SFA and popliteal with use of HawkOne LS device, regeneration from 80% down to 0% and additional balloon angioplasty with 4 x 120 and 5 x 150 drug-coated balloon with reduction in transfemoral gradient from 70 mm down to less than 10 mm, 7-Yakut right femoral access, manual pressure for hemostasis. ANGIOGRAPHIC FINDINGS: Left lower extremity, left common iliac, external iliac patent. SFA diffuse 60% proximal, 70% distal, 80% stenosis, popliteal focal 70% stenosis, pullback gradients were calculated from the popliteal to the proximal SFA, which was about 70 mmHg . Subsequently, a _HawkOne LS device was used for atherectomy and balloon angioplasty with drug-coated balloons were done. Subsequent angiograms were done, which showed lesion reductions with improvement in the gradient down to less than 10 mmHg. IMPRESSION: Successful atherectomy angioplasty of the left superficial femoral artery with the use of HawkOne LS device and additional balloon angioplasty with a drug-coated balloon, lesion reduction down to less than 10%, and improvement in gradient from 70 mm down to 10 mm. RECOMMENDATIONS: The patient can be transferred back to [facility] in three hours. Continue the patient on dual-antiplatelet therapy. The patient will be followed clinically with arterial duplex yearly or every [address] Orellana and Dr. Houston for letting me participate in the care of this patient. Murali Israel MD cc: MD Dr. Jude Garcia. [facility]
[2018-06-21] MEDS: Cefepime 1 GM in Sodium Chloride 0.9% 100 ML IVPB SCH ×2 (09:40→20:05)
[2018-06-21] MEDS: Patient's Own Med (Cyclosporine [Restasis] 1 DROP) EACHEYE SCH ×2 (09:41→21:47)
[2018-06-21] MEDS: Lactobacillus Acidophilus 500 MU Cap PO SCH (09:41)
[2018-06-21] MEDS: Potassium Chloride 10 mEq ER Tab PO SCH (09:42)
[2018-06-21] MEDS: Bacitracin 500 Units/gm Oint Foilpak UD TOP SCH ×3 (09:42→16:26)
[2018-06-21] MEDS: Insulin Lispro (humaLOG) 100 Units/ml Inj SC SCH ×4 (09:46→22:10)
[2018-06-21] MEDS: Insulin Detemir 100 Units/ml Inj SC SCH ×2 (09:47→22:13)
--- NOTE | 2018-06-21 14:51 | PN ---
DATE: 06/21/2018 SUBJECTIVE: The patient denies any chest pain. No reported groin bleeding. PHYSICAL EXAMINATION: VITAL SIGNS: Blood pressure 158/78, heart rate 68, temperature 98.2, respirations 20. HEENT: Normocephalic. CHEST: Clear. HEART: S1, S2 regular. EXTREMITIES: Right below-knee amputation, dressing is applied to the left heel ulcer. ASSESSMENT: 1. Status post stenting to the left lower extremity with drug-eluting stent. 2. Chronic left heel ulcer. 3. History of deep vein thrombosis. 4. Uncontrolled diabetes mellitus. 5. Symptomatic bradycardia on admission. RECOMMENDATIONS: Continue aspirin 81 mg once a day, Plavix 75 mg once a day, Eliquis is on hold until old record is obtained, continue Cozaar 100 mg daily, IV cefepime at 1 g every 12 hours, Lipitor 10 mg once a day. I will obtain 12-lead EKG today. Tommy Willett MD
--- NOTE | 2018-06-21 16:33 | CP.PCM.PN ---
Subjective - Date & Time of Evaluation Date of Evaluation: 06/21/18 Time of Evaluation: 16:31 - Subjective Subjective: clinically denies any pain in LE s/p atherectomy/POBA of LLE with DCB Objective - Vital Signs/Intake and Output Vital Signs (last 24 hours): Temp Pulse Resp BP Pulse Ox 98 F 76 18 163/82 H 100 06/21/18 16:27 06/21/18 16:27 06/21/18 16:27 06/21/18 16:27 06/21/18 16:27 - Medications Medications: Current Medications Apixaban (Eliquis) 5 mg PO Q12 [facility]; Protocol Last Admin: 06/20/18 16:26 Dose: Not Given Aspirin (Aspirin Chewable) 81 mg PO DAILY [facility] Last Admin: 06/21/18 09:46 Dose: 81 mg Atorvastatin Calcium (Lipitor) 10 mg PO HS [facility] Last Admin: 06/20/18 21:35 Dose: 10 mg Bacitracin (Bacitracin) 1 ea TOP TID [facility] Last Admin: 06/21/18 16:26 Dose: 1 ea Clopidogrel Bisulfate (Plavix) 75 mg PO DAILY [facility] Last Admin: 06/21/18 16:26 Dose: 75 mg Donepezil HCl (Aricept) 10 mg PO DAILY [facility] Last Admin: 06/21/18 09:42 Dose: 10 mg Famotidine (Pepcid) 20 mg PO DAILY [facility] Last Admin: 06/21/18 09:42 Dose: 20 mg Gabapentin (Neurontin) 400 mg PO Q8H [facility] Last Admin: 06/21/18 16:24 Dose: 400 mg Home Med (Cyclosporine [Restasis]) 1 drop EACHEYE Q12 [facility] Last Admin: 06/21/18 09:41 Dose: 1 drop Cefepime HCl 1 gm/ Sodium (Chloride) 100 mls @ 100 mls/hr IVPB Q12 [facility]; Protocol Last Admin: 06/21/18 09:40 Dose: 100 mls/hr Insulin Detemir (Levemir) 15 units SC HS [facility] Last Admin: 06/20/18 21:34 Dose: 15 units Insulin Detemir (Levemir) 10 units SC QAM [facility] Last Admin: 06/21/18 09:47 Dose: 10 units Insulin Human Lispro (Humalog) 0 units SC ACHS [facility]; Protocol Last Admin: 06/21/18 16:24 Dose: 2 units Ketorolac Tromethamine (Toradol) 15 mg IVP Q6 PRN PRN Reason: Pain, moderate (4-7) Last Admin: 06/18/18 18:20 Dose: 15 mg Lactobacillus Acidophilus (Bacid Acidophilus) 1 cap PO DAILY [facility] Last Admin: 06/21/18 09:41 Dose: 1 cap Losartan Potassium (Cozaar) 100 mg PO DAILY [facility] Last Admin: 06/21/18 09:42 Dose: 100 mg Mupirocin (Bactroban Ointment) 1 applic TOP BID [facility] Last Admin: 06/21/18 09:41 Dose: 1 applic Nystatin (Nystop Topical Powder) 1 applic TOP TID [facility] Last Admin: 06/21/18 16:23 Dose: 1 applic Potassium Chloride (Klor-Con 10) 10 meq PO DAILY [facility] Last Admin: 06/21/18 09:42 Dose: 10 meq - Labs Labs: 06/16/18 04:20 06/16/18 04:20 PT 17.8 Seconds (9.8-13.1) H 06/14/18 01:50 INR 1.6 06/14/18 01:50 APTT 36.4 Seconds (25.6-37.1) 06/09/18 15:35 - Constitutional Appears: Well - Head Exam Head Exam: ATRAUMATIC, NORMAL INSPECTION, NORMOCEPHALIC - Eye Exam Eye Exam: EOMI, Normal appearance, PERRL Pupil Exam: NORMAL ACCOMODATION, PERRL - ENT Exam ENT Exam: Mucous Membranes Moist, Normal Exam - Neck Exam Neck Exam: Full ROM, Normal Inspection. absent: Lymphadenopathy - Respiratory Exam Respiratory Exam: Clear to Ausculation Bilateral, NORMAL BREATHING PATTERN - Cardiovascular Exam Cardiovascular Exam: REGULAR RHYTHM, +S1, +S2. absent: Murmur - GI/Abdominal Exam GI & Abdominal Exam: Soft, Normal Bowel Sounds. absent: Tenderness - Extremities Exam Extremities Exam: Full ROM, Normal Capillary Refill, Normal Inspection. absent: Joint Swelling, Pedal Edema - Back Exam Back Exam: NORMAL INSPECTION - Neurological Exam Neurological Exam: Alert, Awake, CN II-XII Intact, Oriented x3 - Psychiatric Exam Psychiatric exam: Normal Affect, Normal Mood - Skin Skin Exam: Dry, Intact, Normal Color, Warm Assessment and Plan (1) PVD (peripheral vascular disease) Assessment & Plan: s/p atherectomy / POBA of DCB of LLE SFA cont DAPT ? eliquis Status: Acute (2) Gangrene of lower extremity Status: Acute (3) Non-healing wound of left heel Status: Acute (4) Status post below knee amputation of right lower extremity Status: Acute
--- NOTE | 2018-06-22 01:25 | PN ---
DATE: 06/21/2018 DAILY PROGRESS NOTE SUBJECTIVE: The patient is seen today, 06/21/2018. She is not in any cardiopulmonary distress. PHYSICAL EXAMINATION: VITAL SIGNS: Blood pressure 163/82, temperature 98, respiratory rate 18, and pulse 76. HEENT: Blindness of the left eye. NECK: Supple. No JVD. No carotid bruit. No lymph node. No thyromegaly. CHEST AND LUNGS: Bilateral symmetrical expansion. Good air exchange. No rales. No rhonchi. CARDIOVASCULAR SYSTEM: PMI not localized. S1 and S2. No additional sounds. ABDOMEN: Normoactive bowel sounds. No tenderness. No organomegaly. No masses. EXTREMITIES: The patient has right BKA and left foot ulcer. CENTRAL NERVOUS SYSTEM: Alert, awake, oriented x2. Moves all extremities equally. ASSESSMENT: 1. Peripheral vascular disease with status post superficial femoral artery atherectomy with medicated balloon dilatation. 2. Complicated type 2 diabetes mellitus. 3. Diabetic foot. 4. Hypertension. PLAN: Continue current medications. Once the patient completes the course of IV antibiotics, we remove the PICC line and discharge the patient home as per patient's request and also her family. Cyndie Orellana MD
[2018-06-22 05:43] LABS: HEMOGLOBIN 9.9 g/dL (12.0-16.0); MEAN CORPUSCULAR HEMOGLOBIN 28.3 pg (27.0-31.0); MEAN CORPUSCULAR HGB CONC 32.2 g/dL (33.0-37.0); RBC 3.49 Mil/uL (3.80-5.20); RED CELL DISTRIBUTION WIDTH 17.1 % (11.5-14.5); WHITE BLOOD COUNT 8.2 K/uL (4.8-10.8)
[2018-06-22] MEDS: Insulin Lispro (humaLOG) 100 Units/ml Inj SC SCH ×2 (06:35→12:15)
[2018-06-22] MEDS: Cefepime 1 GM in Sodium Chloride 0.9% 100 ML IVPB SCH (09:54)
[2018-06-22] MEDS: Lactobacillus Acidophilus 500 MU Cap PO SCH (09:55)
[2018-06-22] MEDS: Patient's Own Med (Cyclosporine [Restasis] 1 DROP) EACHEYE SCH (09:56)
[2018-06-22] MEDS: Bacitracin 500 Units/gm Oint Foilpak UD TOP SCH ×2 (09:56→13:45)
[2018-06-22] MEDS: Insulin Detemir 100 Units/ml Inj SC SCH (09:57)
[2018-06-22] MEDS: Potassium Chloride 10 mEq ER Tab PO SCH (10:14)
--- NOTE | 2018-06-22 10:14 | CP.PCM.PN ---
Subjective - Date & Time of Evaluation Date of Evaluation: 06/22/18 Time of Evaluation: 10:07 - Subjective Subjective: Podiatry progress note for Dr. Houston 62 yo female seen and evaluated bedside for L heel decubitus ulcer. Patient is resting comfortably in bed and in NAD. Patient currently recieving 6 weeks of IV abx for L foot OM. Patient Patient is currently on 6 weeks of IV ABx for her left foot acute OM and has a PICC line. As per the patient chart there was no overnight N/V/F/C or SOB. Objective - Vital Signs/Intake and Output Vital Signs (last 24 hours): Temp Pulse Resp BP Pulse Ox 98.3 F 65 20 157/65 H 100 06/22/18 08:15 06/22/18 09:55 06/22/18 08:15 06/22/18 09:55 06/22/18 08:15 - Medications Medications: Current Medications Apixaban (Eliquis) 5 mg PO Q12 [facility]; Protocol Last Admin: 06/20/18 16:26 Dose: Not Given Aspirin (Aspirin Chewable) 81 mg PO DAILY [facility] Last Admin: 06/22/18 09:55 Dose: 81 mg Atorvastatin Calcium (Lipitor) 10 mg PO HS [facility] Last Admin: 06/21/18 21:46 Dose: 10 mg Bacitracin (Bacitracin) 1 ea TOP TID [facility] Last Admin: 06/22/18 09:56 Dose: 1 ea Clopidogrel Bisulfate (Plavix) 75 mg PO DAILY [facility] Last Admin: 06/22/18 09:57 Dose: 75 mg Donepezil HCl (Aricept) 10 mg PO DAILY [facility] Last Admin: 06/22/18 09:55 Dose: 10 mg Famotidine (Pepcid) 20 mg PO DAILY [facility] Last Admin: 06/22/18 09:55 Dose: 20 mg Gabapentin (Neurontin) 400 mg PO Q8H [facility] Last Admin: 06/22/18 09:55 Dose: 400 mg Home Med (Cyclosporine [Restasis]) 1 drop EACHEYE Q12 [facility] Last Admin: 06/22/18 09:56 Dose: 1 drop Cefepime HCl 1 gm/ Sodium (Chloride) 100 mls @ 100 mls/hr IVPB Q12 [facility]; [facility] Last Admin: 06/22/18 09:54 Dose: 100 mls/hr Insulin Detemir (Levemir) 15 units SC HS [facility] Last Admin: 06/21/18 22:13 Dose: 15 units Insulin Detemir (Levemir) 10 units SC QAM [facility] Last Admin: 06/22/18 09:57 Dose: 10 units Insulin Human Lispro (Humalog) 0 units SC ACHS [facility]; Protocol Last Admin: 06/22/18 06:35 Dose: Not Given Ketorolac Tromethamine (Toradol) 15 mg IVP Q6 PRN PRN Reason: Pain, moderate (4-7) Last Admin: 06/18/18 18:20 Dose: 15 mg Lactobacillus Acidophilus (Bacid Acidophilus) 1 cap PO DAILY [facility] Last Admin: 06/22/18 09:55 Dose: 1 cap Losartan Potassium (Cozaar) 100 mg PO DAILY [facility] Last Admin: 06/22/18 09:55 Dose: 100 mg Mupirocin (Bactroban Ointment) 1 applic TOP BID [facility] Last Admin: 06/22/18 09:54 Dose: 1 applic Nystatin (Nystop Topical Powder) 1 applic TOP TID [facility] Last Admin: 06/22/18 09:58 Dose: 1 applic Potassium Chloride (Klor-Con 10) 10 meq PO DAILY [facility] Last Admin: 06/21/18 09:42 Dose: 10 meq - Labs Labs: 06/22/18 05:32 06/22/18 05:32 PT 17.8 Seconds (9.8-13.1) H 06/14/18 01:50 INR 1.6 06/14/18 01:50 APTT 36.4 Seconds (25.6-37.1) 06/09/18 15:35 - Constitutional Appears: Well, No Acute Distress - Extremities Exam Additional comments: LLE focused exam: Vasc: DP pulse 2/4, PT pulse 1/4. TG warm to warm from proximal to distal. Cap refill < 3 seconds to all digits. No edema appreciated . Ortho: Rigid contracture of all digits 1-5. Limited ROM at all major joints and diffuse arthritic changes. R BKA appreciated Neuro: Gross sensation intact, protective sensation diminished. Derm: Approximately 2.3 cm x 1.5 cm X 0.2 cm ulceration noted to plantar/posterior left heel. Mixed fibrous and granular base 50:50. No probe to bone, no malodor, no drainage, no tracking, tunneling or undermining appreciated. No clinical signs of infection - Neurological Exam Neurological Exam: Alert, Awake Assessment and Plan - Assessment and Plan (Free Text) Assessment: 62 yo female seen and evaluated bedside for L heel decubitus ulcer. Plan: Patient seen and evaluated, discussed patient in detail with Dr. Houston Afebrile, WBC 8.2 Local wound care: Wound dressed with bactroban, DSD MRI L foot (06/16): Abnormal bone marrow signal and possible cortical erosion at the distal head of the 4th met. suspicious for osteomyelitis. Left Ankle MRI (06/16): No evidence of osteomyelitis. Mild posterior tendinopathy. Mild soft tissue edema. Patient underwent LLE angio at [facility] (06/20); Successful atherotomy of the left SFA IV abx per ID reccs; continue with IV cefepime as pt. has responded well to this for the treatment of the left heel pseudomonas infection Multipodus boot to be worn at all times while in bed No plan for surgical intervention at this time. Podiatry will continue to follow while patient in house, upon d/c patient to follow up with Dr. Houston in office
--- NOTE | 2018-06-22 10:18 | CP.PCM.PN ---
Subjective - Date & Time of Evaluation Date of Evaluation: 06/22/18 Time of Evaluation: :18 - Subjective Subjective: ID Note- Pt. seen and examined today . remains afebrile and normal wbc count. Patient underwent LLE angio at [facility] (06/20); Successful atherotomy of the left SFA Objective - Vital Signs/Intake and Output Vital Signs (last 24 hours): Temp Pulse Resp BP Pulse Ox 98.3 F 65 20 157/65 H 100 06/22/18 08:15 06/22/18 09:55 06/22/18 08:15 06/22/18 09:55 06/22/18 08:15 - Medications Medications: Current Medications Apixaban (Eliquis) 5 mg PO Q12 [facility]; Protocol Last Admin: 06/20/18 16:26 Dose: Not Given Aspirin (Aspirin Chewable) 81 mg PO DAILY [facility] Last Admin: 06/22/18 09:55 Dose: 81 mg Atorvastatin Calcium (Lipitor) 10 mg PO HS [facility] Last Admin: 06/21/18 21:46 Dose: 10 mg Bacitracin (Bacitracin) 1 ea TOP TID [facility] Last Admin: 06/22/18 09:56 Dose: 1 ea Clopidogrel Bisulfate (Plavix) 75 mg PO DAILY [facility] Last Admin: 06/22/18 09:57 Dose: 75 mg Donepezil HCl (Aricept) 10 mg PO DAILY [facility] Last Admin: 06/22/18 09:55 Dose: 10 mg Famotidine (Pepcid) 20 mg PO DAILY [facility] Last Admin: 06/22/18 09:55 Dose: 20 mg Gabapentin (Neurontin) 400 mg PO Q8H [facility] Last Admin: 06/22/18 09:55 Dose: 400 mg Home Med (Cyclosporine [Restasis]) 1 drop EACHEYE Q12 [facility] Last Admin: 06/22/18 09:56 Dose: 1 drop Cefepime HCl 1 gm/ Sodium (Chloride) 100 mls @ 100 mls/hr IVPB Q12 [facility]; Protocol Last Admin: 06/22/18 09:54 Dose: 100 mls/hr Insulin Detemir (Levemir) 15 units SC HS [facility] Last Admin: 06/21/18 22:13 Dose: 15 units Insulin Detemir (Levemir) 10 units SC QAM [facility] Last Admin: 06/22/18 09:57 Dose: 10 units Insulin Human Lispro (Humalog) 0 units SC ACHS [facility]; Protocol Last Admin: 06/22/18 06:35 Dose: Not Given Ketorolac Tromethamine (Toradol) 15 mg IVP Q6 PRN PRN Reason: Pain, moderate (4-7) Last Admin: 06/18/18 18:20 Dose: 15 mg Lactobacillus Acidophilus (Bacid Acidophilus) 1 cap PO DAILY [facility] Last Admin: 06/22/18 09:55 Dose: 1 cap Losartan Potassium (Cozaar) 100 mg PO DAILY [facility] Last Admin: 06/22/18 09:55 Dose: 100 mg Mupirocin (Bactroban Ointment) 1 applic TOP BID [facility] Last Admin: 06/22/18 09:54 Dose: 1 applic Nystatin (Nystop Topical Powder) 1 applic TOP TID [facility] Last Admin: 06/22/18 09:58 Dose: 1 applic Potassium Chloride (Klor-Con 10) 10 meq PO DAILY [facility] Last Admin: 06/22/18 10:14 Dose: 10 meq - Labs Labs: - Additional Findings Additional findings: - Constitutional Appears: No Acute Distress - Head Exam Head Exam: ATRAUMATIC - ENT Exam ENT Exam: Normal Oropharynx - Neck Exam Neck exam: Positive for: Full Rom - Respiratory Exam Respiratory Exam: Clear to Auscultation Bilateral, NORMAL BREATHING PATTERN - Cardiovascular Exam Cardiovascular Exam: RRR, +S1, +S2 - GI/Abdominal Exam GI & Abdominal Exam: Normal Bowel Sounds, Soft Additional comments: NT, ND - Extremities Exam Additional comments: Right BKA site clean/dry/Intact left heel wound much smaller in size, no discharge no erythema much improved - Neurological Exam Neurological exam: Alert, Oriented x 3 Laboratory Results - last 72 hr 06/19/18 06/19/18 06/19/18 11:21 16:08 22:37 WBC RBC Hgb Hct MCV MCH MCHC RDW Plt Count Sodium Potassium Chloride Carbon Dioxide Anion Gap BUN Creatinine Est GFR ( Amer) Est GFR (Non-Af Amer) POC Glucose (mg/dL) 238 H 213 H 195 H Random Glucose Calcium 06/20/18 06/20/18 06/21/18 04:49 21:12 05:12 WBC RBC Hgb Hct MCV MCH MCHC RDW Plt Count Sodium Potassium Chloride Carbon Dioxide Anion Gap BUN Creatinine Est GFR ( Amer) Est GFR (Non-Af Amer) POC Glucose (mg/dL) 175 H 195 H 142 H Random Glucose Calcium 06/21/18 06/21/18 06/21/18 11:34 16:17 22:04 WBC RBC Hgb Hct MCV MCH MCHC RDW Plt Count Sodium Potassium Chloride Carbon Dioxide Anion Gap BUN Creatinine Est GFR ( Amer) Est GFR (Non-Af Amer) POC Glucose (mg/dL) 255 H 235 H 237 H Random Glucose Calcium 06/22/18 06/22/18 06/22/18 05:22 05:32 05:32 WBC 8.2 RBC 3.49 L Hgb 9.9 L Hct 30.7 L MCV 88.0 MCH 28.3 MCHC 32.2 L RDW 17.1 H Plt Count 220 Sodium 141 Potassium 4.2 Chloride 110 H Carbon Dioxide 28 Anion Gap 7 L BUN 23 H Creatinine 1.2 Est GFR ( Amer) 55 Est GFR (Non-Af Amer) 46 POC Glucose (mg/dL) 112 H Random Glucose 116 H Calcium 9.0 06/22/18 11:14 WBC RBC Hgb Hct MCV MCH MCHC RDW Plt Count Sodium Potassium Chloride Carbon Dioxide Anion Gap BUN Creatinine Est GFR ( Amer) Est GFR (Non-Af Amer) POC Glucose (mg/dL) 202 H Random Glucose Calcium Microbiology 06/09/18 15:05 Blood Blood Culture - Final NO GROWTH AFTER 5 DAYS 06/09/18 15:05 Blood Gram Stain - Final TEST NOT PERFORMED 06/09/18 15:20 Blood Blood Culture - Final NO GROWTH AFTER 5 DAYS 06/09/18 15:20 Blood Gram Stain - Final TEST NOT PERFORMED 06/10/18 05:00 Naris MRSA Culture (Admit) - Final MRSA DETECTED 06/09/18 18:34 Urine,Catheterized Urine Culture - Final No Growth (<1,000 CFU/ML) Assessment and Plan (1) Non-healing wound of left heel Status: Acute (2) Status post below knee amputation of right lower extremity Status: Acute (3) Diabetes Status: Acute (4) Intertrigo Status: Acute (5) Intertrigo Status: Acute - Assessment and Plan (Free Text) Assessment: A/P- 62 year old female with multiple medical conditions including DM II, CAd, HTN, h/o OM of right leg s/p right leg BKA, left heel nonhealing diabetic wound s/p debridement at [facility] a month ago has been on IV abx for pseudomoal infection of the left heel wound for past month as per Id doc at the other hospital who is now admitted for ? syncopal epsiode . she remains afebrile minimal leukocytosis has resolved. MRSA on nasal screening blood cx- neg x 2 urien cx- neg high ESR MRI report both noted- no OM of heel reported, ? om of left fourth digit, however as per Podiatry no clinical evidence of OM at fourth digit and no podiatry surgical intervention planned at this time .Patient underwent LLE angio at [facility] (06/20); Successful atherotomy of the left SFA Plan- advise to continue with IV cefepime as pt. has responded well to this for the treatment of the left heel pseudomonas infection. ? OM has been on this for the past 4 weeks already at [facility] and also since admission here day #18 advise 1 more days of IV cefepime to complete total of 6 weeks. the pseudomonas cx from her left heel done in april at [facility] is also sens to cipro and once pt. is discharged she can be d/c on cipro 250 mg BID for another 7-10 days. pt. to f/u closely with her rn document improvement specialist as outpatient. All above d/w patient and with SUNDAY sanchez and podiatry team.
--- NOTE | 2018-06-22 11:10 | CARD ---
APPROVED REPORT Date of service: 06/21/2018 EKG Measurement Heart [id number] <Conclusion> Normal sinus rhythm Possible Inferior infarct, age undetermined T wave abnormality, consider lateral ischemia Abnormal ECG
[2018-06-22 12:14] VITALS: O2SAT 99
[2018-06-22 16:05] VITALS: BP 158/76; PULSE 68; RESP 17; TEMP 98.2
--- NOTE | 2018-06-22 20:11 | DS ---
REASON FOR ADMISSION: This is a 62 years old female with history of multiple medical problems including type 2 diabetes mellitus, status post right BKA and osteomyelitis of the left foot. The patient was admitted after a fall and thought to be due to syncope. COURSE OF HOSPITALIZATION: The patient was initially admitted to Intensive Care Unit and she was found to have symptomatic bradycardia for which the patient was taken off beta blockers gradually. Vascular Surgery was called due to the persistent wound in the left foot and the patient underwent vascular interventional procedure revascularization of the left lower extremity. The patient was continued on IV antibiotics until it was discontinued by Infectious Disease travel sales consultant. The patient's PICC line was removed and the patient went home to continue current medications and to follow up with Podiatry. FINAL DIAGNOSES: Symptomatic bradycardia, severe peripheral vascular disease of the left lower extremity, status post below knee amputation, type 2 diabetes mellitus, diabetic neuropathy, hypertension, intertrigo. Cyndie Orellana MD
--- NOTE | 2018-06-23 12:23 | US ---
Date of service: 06/21/2018 PROCEDURE: Duplex ultrasound of the bilateral lower extremity arteries. HISTORY: Peripheral vascular disease COMPARISON: None available. TECHNIQUE: Grayscale and duplex Doppler evaluation of the bilateral common femoral, superficial femoral, popliteal, posterior tibial and dorsalis pedis arteries was performed. FINDINGS: RIGHT LOWER EXTREMITY: RIGHT COMMON FEMORAL ARTERY: Widely patent. Maximal flow velocity of 86.5 cm/s. RIGHT SUPERFICIAL FEMORAL ARTERY: Widely patent. Maximal flow velocity of 104.5 cm/s. RIGHT POPLITEAL ARTERY:Widely patent. Maximal flow velocity of 59.3 cm/s. Status post right BKA. LEFT LOWER EXTREMITY: LEFT COMMON FEMORAL ARTERY: Widely patent. Maximal flow velocity of 140.1 cm/s. LEFT SUPERFICIAL FEMORAL ARTERY: Widely patent. Maximal flow velocity of 125.5 cm/s. LEFT POPLITEAL ARTERY:Widely patent. Maximal flow velocity of 135.3 cm/s. LEFT POSTERIOR TIBIAL ARTERY: Widely patent. Maximal flow velocity of 85.0 cm/s. LEFT DORSALIS PEDIS ARTERY: Nondiagnostic assessment, overlying bandages. OTHER FINDINGS: Morphologically, unremarkable lymph node(s) right inguinal region IMPRESSION: Normal Duplex Doppler of the bilateral lower extremity arteries.
== END 2018-06-22 17:26 | disposition home or self-care (01) | DRG 253 ==
LOC: H.ER 15:05 → SUPCPDRO 15:05 → EDBD 15:05 → H.ERHOLD 19:12 → H.ICU/CCU 22:58 → OBSVTOIN 06-11 12:44 → H.MEDSURG1 06-13 14:25 → H.TEL 06-14 03:02
PROVIDERS: ADMIT Internal Medicine; ATTEND Internal Medicine
PROC: 047N341 Dilation of Left Popliteal Artery with Drug-eluting Intraluminal Device, using Drug-Coated Balloon, Percutaneous Approach (ICD-10-PCS; principal; 2018-06-20)
PROC: B40GYZZ Plain Radiography of Left Lower Extremity Arteries using Other Contrast (ICD-10-PCS; 2018-06-20)
DX: E11.52 Type 2 diabetes mellitus with diabetic peripheral angiopathy with gangrene (principal); I70.263 Atherosclerosis of native arteries of extremities with gangrene, bilateral legs; L97.828 Non-pressure chronic ulcer of other part of left lower leg with other specified severity; L97.818 Non-pressure chronic ulcer of other part of right lower leg with other specified severity; L03.116 Cellulitis of left lower limb; I44.2 Atrioventricular block, complete; M86.172 Other acute osteomyelitis, left ankle and foot; E11.621 Type 2 diabetes mellitus with foot ulcer; E11.40 Type 2 diabetes mellitus with diabetic neuropathy, unspecified; L89.629 Pressure ulcer of left heel, unspecified stage; N18.9 Chronic kidney disease, unspecified; I12.9 Hypertensive chronic kidney disease with stage 1 through stage 4 chronic kidney disease, or unspecified chronic kidney disease; E87.6 Hypokalemia; B96.5 Pseudomonas (aeruginosa) (mallei) (pseudomallei) as the cause of diseases classified elsewhere; E11.65 Type 2 diabetes mellitus with hyperglycemia; I25.10 Atherosclerotic heart disease of native coronary artery without angina pectoris; K21.9 Gastro-esophageal reflux disease without esophagitis; F03.90 Unspecified dementia, unspecified severity, without behavioral disturbance, psychotic disturbance, mood disturbance, and anxiety; E83.51 Hypocalcemia; E11.649 Type 2 diabetes mellitus with hypoglycemia without coma; E11.22 Type 2 diabetes mellitus with diabetic chronic kidney disease; E11.319 Type 2 diabetes mellitus with unspecified diabetic retinopathy without macular edema; L30.4 Erythema intertrigo; E78.00 Pure hypercholesterolemia, unspecified; H54.8 Legal blindness, as defined in USA; F41.9 Anxiety disorder, unspecified; Z89.511 Acquired absence of right leg below knee; Z91.81 History of falling; F17.210 Nicotine dependence, cigarettes, uncomplicated; Z86.73 Personal history of transient ischemic attack (TIA), and cerebral infarction without residual deficits; Z86.718 Personal history of other venous thrombosis and embolism; Z79.4 Long term (current) use of insulin; Z79.01 Long term (current) use of anticoagulants; Z88.6 Allergy status to analgesic agent

== ENCOUNTER 2018-08-20 12:23 | Inpatient (IN) | payer OTHER ==
[2018-08-20 12:23] VITALS: BMI 24.1
--- NOTE | 2018-08-20 13:23 | ED PDOC ---
HPI: Abdomen Time Seen by Provider: 08/20/18 12:45 Chief Complaint (Nursing): Abdominal Pain Chief Complaint (Provider): Abdominal pain History Per: Patient History/Exam Limitations: no limitations Additional Complaint(s): Pt reports generalized abdominal pain X 4 days, constant, not relieved with Tramadol at home. Denies fever, nausea, vomiting, constipation, diarrhea, symptoms. As per son, there was diarrhea all around bathroom. PMD: Dr. Abdi Past Medical History Reviewed: Nursing Documentation, Vital Signs Vital Signs: Last Vital Signs Temp 97.8 F 08/20/18 12:25 Pulse 78 08/20/18 12:25 Resp 16 08/20/18 12:25 BP 153/75 H 08/20/18 12:25 Pulse Ox 95 08/20/18 12:25 - Medical History PMH: Anxiety, Arthritis, CAD, Dementia, Diabetes, Deep Vein Thrombosis, GERD, HTN, Hypercholesterolemia, Chronic Kidney Disease - Surgical History Surgical History: Cholecystectomy, Coronary Stent, - Family History Family History: States: Unknown Family Hx - Immunization History Hx Tetanus Toxoid Vaccination: No Hx Influenza Vaccination: No Hx Pneumococcal Vaccination: No - Home Medications Home Medications: Ambulatory Orders Medication Instructions Recorded Aspirin [Ecotrin] 81 mg PO DAILY 08/20/18 Atorvastatin [Lipitor] 10 mg PO DIN 08/20/18 Atorvastatin [Lipitor] 10 mg PO HS 08/20/18 Bacitracin OINT 1 applic TP TID 08/20/18 Clopidogrel [Plavix] 75 mg PO DAILY 08/20/18 Donepezil [Aricept] 10 mg PO DAILY 08/20/18 Donepezil [Aricept] 10 mg PO DAILY 08/20/18 Famotidine [Pepcid] 20 mg PO DAILY 08/20/18 Famotidine [Pepcid] 20 mg PO DAILY 08/20/18 Gabapentin [Neurontin] 400 mg PO Q8 08/20/18 Insulin Detemir [Levemir] 10 unit SQ DAILY 08/20/18 Insulin Detemir [Levemir] 15 unit SQ HS 08/20/18 Insulin Lispro [Humalog (Insulin 0 unit SQ ASDIR 08/20/18 Lispro)] Lactobacillus Acidophilus [Bacid 1 cap PO DAILY 08/20/18 Acidophilus] Losartan [Cozaar] 100 mg PO DAILY 08/20/18 Mupirocin 2% Oint UD [Bactroban 1 applic EXT BID 08/20/18 Ointment] Nystatin/Triamcinolone [Mycolog 1 oin TP TID 08/20/18 Ointment] Pantoprazole Sodium [Protonix] 40 mg PO DAILY 08/20/18 cycloSPORINE [Restasis] 1 ea OP Q12 08/20/18 traMADol [Ultram] 50 mg PO Q6 PRN 08/20/18 - Allergies Allergies/Adverse Reactions: Allergies Allergy/AdvReac Type Severity Reaction Status Date / Time acetaminophen [From Percocet] Allergy SWELLING Verified 06/29/18 14:21 hydromorphone HCl Allergy ANAPHYLAXIS Verified 06/29/18 14:21 [From Dilaudid] oxycodone [From Percocet] Allergy SWELLING Verified 06/29/18 14:21 shrimp Allergy VOMITING Verified 06/29/18 14:21 hydromorphone [From Dilaudid] AdvReac SHORTNESS Verified 06/29/18 14:21 OF BREATH Review of Systems Constitutional: Negative for: Fever, Chills Cardiovascular: Negative for: Chest Pain Respiratory: Negative for: Cough, Shortness of Breath Gastrointestinal: Positive for: Abdominal Pain. Negative for: Nausea, Vomiting, Diarrhea Genitourinary Female: Negative for: Dysuria, Hematuria Skin: Negative for: Rash, Lesions Physical Exam - Reviewed Nursing Documentation Reviewed: Yes Vital Signs Reviewed: Yes - Physical Exam Appears: Positive for: No Acute Distress Skin: Positive for: Normal Color, Warm, Dry Eye Exam: Positive for: Normal appearance, EOMI, PERRL Cardiovascular/Chest: Positive for: Regular Rate, Rhythm Respiratory: Positive for: Normal Breath Sounds Gastrointestinal/Abdominal: Positive for: Bowel Sounds, Soft, Tenderness (Generalized). Negative for: Guarding, Rebound Extremity: Positive for: Other (R AKA) Neurologic/Psych: Positive for: Alert, Oriented - Laboratory Results Result Diagrams: 08/20/18 13:49 08/20/18 14:50 - ECG Interpretation Of ECG: NSR @ 68, no ST-T changes. O2 Sat by Pulse Oximetry: 95 Medical Decision Making Medical Decision Makin yo female with generalized abdominal pain. - labs - EKG - CT abd/pelvis - IVF Accession No. : [id number] Patient Name / ID : ZAN Austin / [id number] Exam Date : 08/20/2018 15:21:59 ( Approved ) Study Comment : Sex / Age : F / 62Y Creator : Yossi Cast MD Dictator : Yossi Cast MD Force Dispatcher : Customs Brokerage Manager : Yossi Cast MD Approver2 : Report Date : 08/20/2018 15:42:36 My Comment : Date of service: 08/20/2018 PROCEDURE: CT Abdomen and Pelvis without intravenous contrast HISTORY: Gen abd pain, diarrhea COMPARISON: Noncontrast abdomen pelvis CT 12/06/2016. TECHNIQUE: Helical CT of the abdomen and pelvis was performed without oral or intravenous contrast as per referring physician request. Coronal and sagittal reformats were generated. Contrast dose: None Radiation dose: Total exam DLP = 818.34 mGy-cm. This CT exam was performed using one or more of the following dose reduction techniques: Automated exposure control, adjustment of the mA and/or kV according to patient size, and/or use of iterative reconstruction technique. FINDINGS: LOWER THORAX: Cardiomegaly, hiatal hernia. LIVER: Unremarkable. No gross lesion or ductal dilatation. GALLBLADDER AND BILE DUCTS: Prior cholecystectomy suggested. Clinically correlate. Prominent CBD up to 13 mm caliber likely related to prior cholecystectomy. No significant interval change no radiodense choledocholithiasis identified. PANCREAS: Unremarkable. No gross lesion or ductal dilatation. SPLEEN: Unremarkable. ADRENALS: Unremarkable. No mass. KIDNEYS AND URETERS: Unremarkable. No hydronephrosis. No solid mass. VASCULATURE: Interval inferior vena cava filter deployment at infrarenal IVC. nonaneurysmal abdominal aortic calcific atherosclerotic changes are identified. BOWEL: No bowel obstruction or limited left colonic diverticular changes, not inflamed. APPENDIX: Unremarkable. Normal appendix. PERITONEUM: Unremarkable. No free fluid. No free air. LYMPH NODES: Unremarkable. No enlarged lymph nodes. BLADDER: Unremarkable. REPRODUCTIVE: Questionable urachal remnant with urinary bladder otherwise unremarkable. BONES: No acute fracture. OTHER FINDINGS: None. IMPRESSION: 1. No definite acute abdominal findings. No acute pelvic findings. 2. Limited colonic diverticular change. No diverticulitis. 3. Prior cholecystectomy. Stable extrahepatic biliary dilatation without choledocholithiasis. 4. Interval inferior vena cava filter deployment. 15:[address] Orellana, Joe REINOSO, IVF, admit. Disposition - Clinical Impression Clinical Impression: Acute hyperkalemia, Diarrhea - Patient ED Disposition Is Patient to be Admitted: Yes - Disposition Disposition Time: 17:41 Condition: STABLE Forms: Nourish ([place]) - Pt Status Changed To: Hospital Disposition Of: Inpatient - Admit Certification Admit to Inpatient:: After my assessment, the patient will require hospitalization for at least two midnights. This is because of the severity of symptoms shown, intensity of services needed, and/or the medical risk in this patient being treated as an outpatient. - POA Present On Arrival: Poor Glycemic Control
[2018-08-20] MEDS ORDERED: Sodium Chloride 0.9% 1,000 ML IV STA (13:24)
[2018-08-20] MEDS ORDERED: Sodium Chloride 0.9% 500 ML IV STA (13:24)
[2018-08-20 14:02] LABS: INR 1.1; PROTHROMBIN TIME 12.3 Seconds (9.8-13.1)
[2018-08-20 14:05] LABS: ALB/GLOB RATIO 0.8 (1.0-2.1); ALBUMIN 3.5 g/dL (3.5-5.0); ALT/SGPT 16 U/L (9-52); AST/SGOT 28 U/L (14-36); BLOOD UREA NITROGEN 25 mg/dl (7-17); CALCIUM 9.7 mg/dL (8.4-10.2); GFR NON-AFRICAN AMERICAN 35; PARTIAL THROMBOPLASTIN TIME 29.2 Seconds (25.6-37.1)
[2018-08-20 14:08] LABS: BASO % 0.3 % (0.0-2.0); EOS # 0.1 K/uL (0.0-0.7); EOS % 0.7 % (0.0-4.0); HEMOGLOBIN 13.7 g/dL (12.0-16.0); LYMPH # 1.3 K/uL (1.0-4.3); MEAN CELL VOLUME 88.7 fl (81.0-99.0); MEAN CORPUSCULAR HEMOGLOBIN 27.6 pg (27.0-31.0); MEAN CORPUSCULAR HGB CONC 31.1 g/dL (33.0-37.0); MEAN PLATELET VOLUME 11.3 fl (7.2-11.7); MONO # 0.4 K/uL (0.0-0.8); MONO % 2.6 % (0.0-10.0); NEUT # 14.5 K/uL (1.8-7.0); NEUT % 88.4 % (50.0-75.0); PLATELET COUNT 254 K/uL (130-400); RBC 4.94 Mil/uL (3.80-5.20); RED CELL DISTRIBUTION WIDTH 16.4 % (11.5-14.5)
[2018-08-20 14:11] LABS: WHITE BLOOD COUNT 16.4 K/uL (4.8-10.8)
[2018-08-20 15:21] LABS: EOSINOPHIL 1 % (0-7); LYMPHOCYTE 7 % (20-50); MONOCYTE 2 % (0-10); NEUTROPHIL 90 % (42-75); PLATELET ESTIMATE NORMAL (NORMAL); TOTAL CELLS COUNTED 100
[2018-08-20 15:22] LABS: ANISOCYTOSIS SLIGHT; OVALOCYTES SLIGHT
[2018-08-20] MEDS ORDERED: Dextrose 50% SYRINGE Inj (50 ml) IVP STA (15:31)
[2018-08-20] MEDS ORDERED: Insulin Regular 100 units/ml IV STA (15:31)
[2018-08-20] MEDS ORDERED: Albuterol 0.083% Inhal Sol (2.5 mg/3 mL) UD INH STA (15:32)
[2018-08-20] MEDS ORDERED: Sod Polystyrene Sulf 15 gm/60 ml Susp PO STA (15:32)
--- NOTE | 2018-08-20 15:46 | CT ---
Date of service: 08/20/2018 PROCEDURE: CT Abdomen and Pelvis without intravenous contrast HISTORY: Gen abd pain, diarrhea COMPARISON: Noncontrast abdomen pelvis CT 12/06/2016. TECHNIQUE: Helical CT of the abdomen and pelvis was performed without oral or intravenous contrast as per referring physician request. Coronal and sagittal reformats were generated. Contrast dose: None Radiation dose: Total exam DLP = 818.34 mGy-cm. This CT exam was performed using one or more of the following dose reduction techniques: Automated exposure control, adjustment of the mA and/or kV according to patient size, and/or use of iterative reconstruction technique. FINDINGS: LOWER THORAX: Cardiomegaly, hiatal hernia. LIVER: Unremarkable. No gross lesion or ductal dilatation. GALLBLADDER AND BILE DUCTS: Prior cholecystectomy suggested. Clinically correlate. Prominent CBD up to 13 mm caliber likely related to prior cholecystectomy. No significant interval change no radiodense choledocholithiasis identified. PANCREAS: Unremarkable. No gross lesion or ductal dilatation. SPLEEN: Unremarkable. ADRENALS: Unremarkable. No mass. KIDNEYS AND URETERS: Unremarkable. No hydronephrosis. No solid mass. VASCULATURE: Interval inferior vena cava filter deployment at infrarenal IVC. nonaneurysmal abdominal aortic calcific atherosclerotic changes are identified. BOWEL: No bowel obstruction or limited left colonic diverticular changes, not inflamed. APPENDIX: Unremarkable. Normal appendix. PERITONEUM: Unremarkable. No free fluid. No free air. LYMPH NODES: Unremarkable. No enlarged lymph nodes. BLADDER: Unremarkable. REPRODUCTIVE: Questionable urachal remnant with urinary bladder otherwise unremarkable. BONES: No acute fracture. OTHER FINDINGS: None. IMPRESSION: 1. No definite acute abdominal findings. No acute pelvic findings. 2. Limited colonic diverticular change. No diverticulitis. 3. Prior cholecystectomy. Stable extrahepatic biliary dilatation without choledocholithiasis. 4. Interval inferior vena cava filter deployment.
[2018-08-20] MEDS ORDERED: Albuterol 0.083% Inhal Sol (2.5 mg/3 mL) UD ONE (15:49)
[2018-08-20] MEDS ORDERED: Insulin Regular 100 units/ml ONE (15:49)
[2018-08-20] MEDS ORDERED: Dextrose 50% SYRINGE Inj (50 ml) ONE (15:50)
[2018-08-20] MEDS ORDERED: SODIUM POLYSTYRENE SULFONATE 15 GM POWDER PO ONE (15:50)
[2018-08-20 19:12] LABS: SQUAMOUS EPITHIAL 2 /hpf (0-5); URINE BACTERIA RARE (<OCC); URINE BILIRUBIN NEGATIVE (NEGATIVE); URINE BLOOD NEGATIVE (NEGATIVE); URINE CLARITY CLEAR (Clear); URINE COLOR YELLOW (YELLOW); URINE GLUCOSE (UA) >=500 mg/dL (NEGATIVE); URINE HYALINE CAST 0-2 /hpf (0-2); URINE LEUKOCYTE ESTERASE NEG Leu/uL (Negative); URINE PROTEIN >=500 mg/dL (NEGATIVE); URINE UROBILINOGEN 0.2-1.0 mg/dL (0.2-1.0)
[2018-08-20 19:49] LABS: BARBITURATES, UR NEGATIVE (NEGATIVE); BENZODIAZEPINES, UR NEGATIVE (NEGATIVE); OPIATES, UR POSITIVE (NEGATIVE); PHENCYCLIDINE, UR NEGATIVE (NEGATIVE)
[2018-08-20] MEDS ORDERED: Dextrose 50% SYRINGE Inj (50 ml) IV PRN (21:50)
[2018-08-20] MEDS ORDERED: Glucagon Recombinant 1 mg Inj IM PRN (21:50)
[2018-08-20] MEDS: Insulin Lispro (humaLOG) 100 Units/ml Inj SC SCH (22:00)
[2018-08-20] MEDS: Sodium Chloride 0.9% 1,000 ML IV SCH (23:18)
[2018-08-20] MEDS: Insulin Detemir 100 Units/ml Inj SC SCH (23:19)
[2018-08-21] MEDS ORDERED: metroNIDAZOLE 500mg/100ml NS IVPB SCH (01:00)
[2018-08-21 06:21] LABS: HEMOGLOBIN 11.1 g/dL (12.0-16.0); MEAN CELL VOLUME 87.9 fl (81.0-99.0); MEAN CORPUSCULAR HEMOGLOBIN 28.1 pg (27.0-31.0); RBC 3.95 Mil/uL (3.80-5.20); RED CELL DISTRIBUTION WIDTH 15.8 % (11.5-14.5); WHITE BLOOD COUNT 9.5 K/uL (4.8-10.8)
[2018-08-21 06:48] LABS: CALCIUM 8.6 mg/dL (8.4-10.2)
[2018-08-21] MEDS: Mupirocin 2% Oint 1GM UD EXT SCH ×2 (09:03→17:07)
[2018-08-21] MEDS: Insulin Lispro (humaLOG) 100 Units/ml Inj SC SCH ×4 (09:04→22:14)
[2018-08-21] MEDS: Insulin Detemir 100 Units/ml Inj SC SCH ×2 (09:04→22:17)
[2018-08-21] MEDS: Pantoprazole 40 mg EC Tab PO SCH (09:07)
[2018-08-21] MEDS: Lactobacillus Acidophilus 500 MU Cap PO SCH (10:07)
--- NOTE | 2018-08-21 10:38 | RAD ---
Date of service: 08/20/2018 HISTORY: Abdominal pain COMPARISON: 06/19/2018. FINDINGS: LUNGS: The lungs are well inflated and clear. PLEURA: No pleural effusions or pneumothorax. CARDIOVASCULAR: The heart is normal in size. No aortic atherosclerotic calcification present. OSSEOUS STRUCTURES: Within normal limits for the patient's age. VISUALIZED UPPER ABDOMEN: Normal. OTHER FINDINGS: An IVC filter remains in place. IMPRESSION: No active pulmonary disease.
[2018-08-21] MEDS: Sodium Chloride 0.9% 1,000 ML IV SCH (13:26)
--- NOTE | 2018-08-21 13:40 | CP.PCM.CON ---
History of Present Illness - History of Present Illness History of Present Illness: Podiatry Consult note for Dr. Houston 62 y/o F with PMH diabetes, right BKA, and chronic left foot wounds seen and evaluated at the bedside for chronic left heel ulcer. Patient is AAOX3 and NAD. Patient admitted to the hospital because she has diarrhea with electrolyte disturbance. Patient is following up with Rosemarie Bates got consulted for her left heel ulcer. Patient states that her foot ulcer is not painful. She states that she just saw Dr. Houston a week ago. Patient denies any recent N/V/F/C/CP/SOB. She denies any other pedal complaint at this time. Patient LLE was in multipodus boot at the visit time. PMH diabetes, right BKA, and chronic left foot wounds PSH: R leg BKA, multiple b/l foot wound debridements Allergies: Hydromorphone, shrimp. Social Hx: Tobacco use with 40 pack/ year history, No Hx of ETOH/illicit drug use Review of Systems - Review of Systems Review of Systems: As per HPI Past Patient History - Infectious Disease Hx of Infectious Diseases: None - Past Medical History & Family History Past Medical History?: Yes - Past Social History Smoking Status: Never Smoked - CARDIAC Hx Cardiac Disorders: Yes Hx Hypercholesterolemia: Yes Hx Hypertension: Yes Other/Comment: Coronary stent - PULMONARY Hx Respiratory Disorders: No - NEUROLOGICAL Hx Neurological Disorder: No - HEENT Hx HEENT Problems: Yes - RENAL Hx Chronic Kidney Disease: No - ENDOCRINE/METABOLIC Hx Endocrine Disorders: Yes Hx Diabetes Mellitus Type 1: Yes - HEMATOLOGICAL/ONCOLOGICAL Hx Blood Disorders: No - INTEGUMENTARY Hx Dermatological Problems: No - MUSCULOSKELETAL/RHEUMATOLOGICAL Hx Musculoskeletal Disorders: Yes Hx Arthritis: Yes Hx Falls: No - GASTROINTESTINAL Hx Gastrointestinal Disorders: Yes Hx Gastroesophageal Reflux: Yes Hx Nausea: Yes Hx Ulcer: Yes - GENITOURINARY/GYNECOLOGICAL Hx Genitourinary Disorders: No - PSYCHIATRIC Hx Psychophysiologic Disorder: Yes Hx Anxiety: Yes Hx Substance Use: No - SURGICAL HISTORY Hx Surgeries: Yes Hx Section: Yes Hx Cholecystectomy: Yes Hx Coronary Stent: Yes - ANESTHESIA Hx Anesthesia: Yes Hx Anesthesia Reactions: No Hx Malignant Hyperthermia: No Meds Allergies/Adverse Reactions: Allergies Allergy/AdvReac Type Severity Reaction Status Date / Time acetaminophen [From Percocet] Allergy SWELLING Verified 06/29/18 14:21 hydromorphone HCl Allergy ANAPHYLAXIS Verified 06/29/18 14:21 [From Dilaudid] oxycodone [From Percocet] Allergy SWELLING Verified 06/29/18 14:21 shrimp Allergy VOMITING Verified 06/29/18 14:21 hydromorphone [From Dilaudid] AdvReac SHORTNESS Verified 06/29/18 14:21 OF BREATH - Medications Medications: Current Medications Aspirin (Ecotrin) 81 mg PO DAILY [facility] Last Admin: 08/21/18 09:08 Dose: 81 mg Atorvastatin Calcium (Lipitor) 10 mg PO HS [facility] Last Admin: 08/20/18 22:50 Dose: 10 mg Clopidogrel Bisulfate (Plavix) 75 mg PO DAILY [facility] Last Admin: 08/21/18 09:03 Dose: 75 mg Dextrose (Dextrose 50% Inj) 0 ml IV STAT PRN; Protocol PRN Reason: Hypoglycemia Protocol Dextrose (Glutose 15) 0 gm PO ONCE PRN; Protocol PRN Reason: Hypoglycemia Protocol Donepezil HCl (Aricept) 10 mg PO DAILY [facility] Last Admin: 08/21/18 09:02 Dose: 10 mg Famotidine (Pepcid) 20 mg PO DAILY [facility] Last Admin: 08/21/18 09:04 Dose: 20 mg Gabapentin (Neurontin) 400 mg PO Q8 [facility] Last Admin: 08/21/18 09:02 Dose: 400 mg Glucagon (Glucagen Diagnostic Kit) 0 mg IM STAT PRN; Protocol PRN Reason: Hypoglycemia Protocol Sodium Chloride (Sodium Chloride 0.9%) 1,000 mls @ 100 mls/hr IV .Q10H [facility] Stop: 08/21/18 22:03 Last Admin: 08/21/18 13:26 Dose: Not Given Insulin Detemir (Levemir) 15 units [facility] Last Admin: 08/20/18 23:19 Dose: 15 units Insulin Detemir (Levemir) 10 units SC DAILY [facility] Last Admin: 08/21/18 09:04 Dose: 10 units Insulin Human Lispro (Humalog) 0 units SC [facility]; Protocol Last Admin: 08/21/18 13:28 Dose: 4 units Lactobacillus Acidophilus (Bacid Acidophilus) 1 cap PO DAILY [facility] Last Admin: 08/21/18 10:07 Dose: 1 cap Losartan Potassium (Cozaar) 100 mg PO DAILY [facility] Last Admin: 08/21/18 09:03 Dose: 100 mg Metronidazole (Flagyl) 500 mg PO Q8 [facility]; Protocol Last Admin: 08/21/18 09:03 Dose: 500 mg Mupirocin (Bactroban Ointment) 1 applic EXT BID [facility] Last Admin: 08/21/18 09:03 Dose: 1 applic Pantoprazole Sodium (Protonix Ec Tab) 40 mg PO DAILY [facility] Last Admin: 08/21/18 09:07 Dose: 40 mg Polyethylene Glycol (Miralax) 17 gm PO DAILY [facility] Tramadol HCl (Ultram) 50 mg PO Q6 PRN PRN Reason: Pain, severe (8-10) Last Admin: 08/21/18 06:56 Dose: 50 mg Physical Exam - Constitutional Appears: Well, Non-toxic, No Acute Distress - Head Exam Head Exam: ATRAUMATIC, NORMOCEPHALIC - Extremities Exam Additional comments: Left LE focused exam, R LE BKA Vasc: DP/PT pulses faintly palpable 1/4. Temp gradient warm to cool from proximal to distal. Cap refill < 3 seconds to all digits. No edema or erythema noted. Neuro: Couldn't be assessed due to the patient current mental status. Derm: Approximatly 1 cm x 1 cm X0.3 cm Oval ulceration noted to p lantar/posterior left heel. Wound has granular base 100%. No probe to bone. no malodor. No drainage. No tracking, tunneling or undermining appreciated. No erythema MSK: Rigid contractures of all digits 1-5. Limited ROM at all major joints and diffuse arthritic changes. No pain on palpating the abby-ulcerative area. - Neurological Exam Neurological exam: Alert, Oriented x3 Results - Vital Signs Recent Vital Signs: Last Vital Signs Temp 97.7 F 08/21/18 07:40 Pulse 66 08/21/18 09:03 Resp 18 08/21/18 07:40 BP 169/69 H 08/21/18 09:03 Pulse Ox 100 08/21/18 07:40 - Labs Result Diagrams: 08/21/18 06:00 08/21/18 06:00 Labs: Laboratory Results - last 24 hr 08/20/18 08/20/18 08/20/18 06:26 13:49 13:49 WBC 16.4 H D RBC 4.94 Hgb 13.7 D Hct 43.8 MCV 88.7 MCH 27.6 MCHC 31.1 L RDW 16.4 H Plt Count 254 MPV 11.3 Neut % (Auto) 88.4 H Lymph % (Auto) 8.0 L [place] % (Auto) 2.6 Eos % (Auto) 0.7 Baso % (Auto) 0.3 Neut # (Auto) 14.5 H Lymph # (Auto) 1.3 [place] # (Auto) 0.4 Eos # (Auto) 0.1 Baso # (Auto) 0.0 Neutrophils % (Manual) 90 H Lymphocytes % (Manual) 7 L Monocytes % (Manual) 2 Eosinophils % (Manual) 1 Platelet Estimate Normal Anisocytosis (manual) Slight Ovalocytes Slight PT INR APTT Sodium 142 Potassium 5.7 H Chloride 113 H Carbon Dioxide 19 L Anion Gap 16 BUN 25 H Creatinine 1.5 H Est GFR ( Amer) 43 Est GFR (Non-Af Amer) 35 POC Glucose (mg/dL) Random Glucose 279 H Calcium 9.7 Total Bilirubin 0.3 AST 28 ALT 16 Alkaline Phosphatase 190 H D Total Protein 7.9 Albumin 3.5 D Globulin 4.4 H Albumin/Globulin Ratio 0.8 L Urine Color Urine Clarity Urine pH Ur Specific [place] Urine Protein Urine Glucose (UA) Urine Ketones Urine Blood Urine Nitrate Urine Bilirubin Urine Urobilinogen Ur Leukocyte Esterase Urine RBC (Auto) Urine Microscopic WBC Ur Squamous Epith Cells Urine Bacteria Hyaline Casts Urine Opiates Screen Urine Methadone Screen Ur Barbiturates Screen Ur Phencyclidine Scrn Ur Amphetamines Screen U Benzodiazepines Scrn U Oth Cocaine Metabols U Cannabinoids Screen Alcohol, Quantitative < 10 C. difficile Ag & Toxin Negative 08/20/18 08/20/18 08/20/18 13:49 14:50 19:05 WBC RBC Hgb Hct MCV MCH MCHC RDW Plt Count MPV Neut % (Auto) Lymph % (Auto) [place] % (Auto) Eos % (Auto) Baso % (Auto) Neut # (Auto) Lymph # (Auto) [place] # (Auto) Eos # (Auto) Baso # (Auto) Neutrophils % (Manual) Lymphocytes % (Manual) Monocytes % (Manual) Eosinophils % (Manual) Platelet Estimate Anisocytosis (manual) Ovalocytes PT 12.3 INR 1.1 APTT 29.2 Sodium Potassium 6.0 H Chloride Carbon Dioxide Anion Gap BUN Creatinine Est GFR ( Amer) Est GFR (Non-Af Amer) POC Glucose (mg/dL) Random Glucose Calcium Total Bilirubin AST ALT Alkaline Phosphatase Total Protein Albumin Globulin Albumin/Globulin Ratio Urine Color Urine Clarity Urine pH Ur Specific [place] Urine Protein Urine Glucose (UA) Urine Ketones Urine Blood Urine Nitrate Urine Bilirubin Urine Urobilinogen Ur Leukocyte Esterase Urine RBC (Auto) Urine Microscopic WBC Ur Squamous Epith Cells Urine Bacteria Hyaline Casts Urine Opiates Screen Positive H Urine Methadone Screen Negative Ur Barbiturates Screen Negative Ur Phencyclidine Scrn Negative Ur Amphetamines Screen Negative U Benzodiazepines Scrn Negative U Oth Cocaine Metabols Negative U Cannabinoids Screen Negative Alcohol, Quantitative C. difficile Ag & Toxin 08/20/18 08/20/18 08/21/18 19:05 21:11 04:38 WBC RBC Hgb Hct MCV MCH MCHC RDW Plt Count MPV Neut % (Auto) Lymph % (Auto) [place] % (Auto) Eos % (Auto) Baso % (Auto) Neut # (Auto) Lymph # (Auto) [place] # (Auto) Eos # (Auto) Baso # (Auto) Neutrophils % (Manual) Lymphocytes % (Manual) Monocytes % (Manual) Eosinophils % (Manual) Platelet Estimate Anisocytosis (manual) Ovalocytes PT INR APTT Sodium Potassium Chloride Carbon Dioxide Anion Gap BUN Creatinine Est GFR ( Amer) Est GFR (Non-Af Amer) POC Glucose (mg/dL) 139 H 119 H Random Glucose Calcium Total Bilirubin AST ALT Alkaline Phosphatase Total Protein Albumin Globulin Albumin/Globulin Ratio Urine Color Yellow Urine Clarity Clear Urine pH 6.0 Ur Specific [place] 1.011 Urine Protein >=500 Urine Glucose (UA) >=500 Urine Ketones Negative Urine Blood Negative Urine Nitrate Negative Urine Bilirubin Negative Urine Urobilinogen 0.2-1.0 Ur Leukocyte Esterase Neg Urine RBC (Auto) 1 Urine Microscopic WBC 1 Ur Squamous Epith Cells 2 Urine Bacteria Rare Hyaline Casts 0-2 Urine Opiates Screen Urine Methadone Screen Ur Barbiturates Screen Ur Phencyclidine Scrn Ur Amphetamines Screen U Benzodiazepines Scrn U Oth Cocaine Metabols U Cannabinoids Screen Alcohol, Quantitative C. difficile Ag & Toxin 08/21/18 08/21/18 08/21/18 06:00 06:00 11:29 WBC 9.5 RBC 3.95 Hgb 11.1 L D Hct 34.7 MCV 87.9 MCH 28.1 MCHC 32.0 L RDW 15.8 H Plt Count 259 MPV Neut % (Auto) Lymph % (Auto) [place] % (Auto) Eos % (Auto) Baso % (Auto) Neut # (Auto) Lymph # (Auto) [place] # (Auto) Eos # (Auto) Baso # (Auto) Neutrophils % (Manual) Lymphocytes % (Manual) Monocytes % (Manual) Eosinophils % (Manual) Platelet Estimate Anisocytosis (manual) Ovalocytes PT INR APTT Sodium 142 Potassium 4.3 Chloride 112 H Carbon Dioxide 22 Anion Gap 12 BUN 22 H Creatinine 1.3 H Est GFR ( Amer) 50 Est GFR (Non-Af Amer) 42 POC Glucose (mg/dL) 260 H Random Glucose 126 H Calcium 8.6 Total Bilirubin AST ALT Alkaline Phosphatase Total Protein Albumin Globulin Albumin/Globulin Ratio Urine Color Urine Clarity Urine pH Ur Specific [place] Urine Protein Urine Glucose (UA) Urine Ketones Urine Blood Urine Nitrate Urine Bilirubin Urine Urobilinogen Ur Leukocyte Esterase Urine RBC (Auto) Urine Microscopic WBC Ur Squamous Epith Cells Urine Bacteria Hyaline Casts Urine Opiates Screen Urine Methadone Screen Ur Barbiturates Screen Ur Phencyclidine Scrn Ur Amphetamines Screen U Benzodiazepines Scrn U Oth Cocaine Metabols U Cannabinoids Screen Alcohol, Quantitative C. difficile Ag & Toxin Assessment & Plan - Assessment and Plan (Free Text) Assessment: 62 y/o F patient seen and evaluated for chronic ulcer of the L heel Plan: Patient seen and evaluated at the bedside. Plan discussed with Dr. Houston Charts, Labs and vitals reviewed: Afebrile, WBC 9.5 LE MRI (05/02): possible early acute and or developing acute osteomyelitis with possible underlying cellulitis Multipodus boot to be worn at all times while in bed. Wound dressed with xeroform, DSD and ABD. No plan for surgical intervention at this time. Podiatry will continue to follow up the patient while in house. - Date & Time Date: 08/21/18 Time: 13:33
--- NOTE | 2018-08-21 14:53 | CARD ---
APPROVED REPORT Date of service: 08/20/2018 EKG Measurement Heart [id number] <Conclusion> Normal sinus rhythm Normal ECG
--- NOTE | 2018-08-21 15:46 | RAD ---
Date of service: 08/21/2018 PROCEDURE: Left Foot Radiographs. HISTORY: left heel non healing ulcer, R/O OM COMPARISON: 06/10/2018. FINDINGS: BONES: There is periarticular bone demineralization. No acute displaced fracture or bone destruction. Bone alignment is normal.. JOINTS: Mild degenerative osteoarthrosis in the 1st MTP joint. The remaining joint spaces are preserved. SOFT TISSUES: Large soft tissue defect in the heel. OTHER FINDINGS: None. IMPRESSION: Large ulcer in the heel. No radiographic evidence for osteomyelitis. If there is a persistent clinical concern, correlation with MRI may be performed for definitive evaluation.
[2018-08-21] MEDS: POLYETHYLENE GLYCOL 3350 17 GM/Dose PACKET PO SCH (17:07)
--- NOTE | 2018-08-22 08:17 | HP ---
HISTORY OF PRESENT ILLNESS: This is a 62-year-old female with history of multiple medical problems, presented to emergency room with symptoms of abdominal pain and diarrhea. The patient was evaluated in emergency room, and she was found to have a colitis. Subsequently, the patient was started on IV antibiotics and admitted for further management. The patient also was complaining of generalized weakness and generalized body ache. Other review of systems was negative. ALLERGIES: NO KNOWN ALLERGY. MEDICATIONS: Reviewed as per MAR. SOCIAL HISTORY: No history of smoking, EtOH, or substance abuse. FAMILY HISTORY: Noncontributory. PHYSICAL EXAMINATION: GENERAL: The patient is in bed, not in any cardiopulmonary distress. VITAL SIGNS: Blood pressure 135/70, temperature 98.2, respiratory rate 18, and pulse 70. HEENT: Pupils equal, reactive to light. Normal-appearing mucosa of the conjunctivae, oropharynx, and nasal membrane mucosa. NECK: Supple. No JVD. No carotid bruit. No lymph node. No thyromegaly. CHEST AND LUNGS: Bilateral symmetrical expansion. Good air exchange. No rales. No rhonchi. CARDIOVASCULAR SYSTEM: PMI not localized. S1, S2. No additional sounds. ABDOMEN: Normoactive bowel sounds. No tenderness. No organomegaly. No mass. EXTREMITIES: Left foot ulcer, heel ulcer, and right BKA. CENTRAL NERVOUS SYSTEM: Alert, awake, oriented x2. The patient is legally blind. Moves all extremities equally. ASSESSMENT: 1. Colitis. 2. Type 2 diabetes mellitus with hyperglycemia. 3. Coronary artery disease. 4. Hypertension. 5. Peripheral vascular disease. PLAN: Continue current medications and antibiotics, physical therapy. Follow workup done. Cyndie Orellana MD
[2018-08-22 08:21] VITALS: BP 159/75; PULSE 65; RESP 20; TEMP 97.7; O2SAT 98
--- NOTE | 2018-08-22 08:27 | CP.PCM.PN ---
Subjective - Date & Time of Evaluation Date of Evaluation: 08/22/18 Time of Evaluation: 08:22 - Subjective Subjective: Podiatry Consult note for Dr. Houston 62 y/o F with seen and evaluated at the bedside for chronic left heel ulcer. Patient is AAOX3 and NAD. Patient states that her foot ulcer is not painful. She states that she has nausea since yesterday with episodes of vomiting yesterday. Patient denies any F/C or SOB. She denies any other pedal complaint at this time. Patient LLE was in multipodus boot at the visit time. Objective - Vital Signs/Intake and Output Vital Signs (last 24 hours): Temp Pulse Resp BP Pulse Ox 97.7 F 65 20 159/75 H 98 08/22/18 08:21 08/22/18 08:21 08/22/18 08:21 08/22/18 08:21 08/22/18 08:21 - Medications Medications: Current Medications Aspirin (Ecotrin) 81 mg PO DAILY [facility] Last Admin: 08/21/18 09:08 Dose: 81 mg Atorvastatin Calcium (Lipitor) 10 mg PO HS [facility] Last Admin: 08/21/18 22:16 Dose: 10 mg Clopidogrel Bisulfate (Plavix) 75 mg PO DAILY [facility] Last Admin: 08/21/18 09:03 Dose: 75 mg Dextrose (Dextrose 50% Inj) 0 ml IV STAT PRN; Protocol PRN Reason: Hypoglycemia Protocol Dextrose (Glutose 15) 0 gm PO ONCE PRN; Protocol PRN Reason: Hypoglycemia Protocol Donepezil HCl (Aricept) 10 mg PO DAILY [facility] Last Admin: 08/21/18 09:02 Dose: 10 mg Famotidine (Pepcid) 20 mg PO DAILY [facility] Last Admin: 08/21/18 09:04 Dose: 20 mg Gabapentin (Neurontin) 400 mg PO Q8 [facility] Last Admin: 08/22/18 00:17 Dose: 400 mg Glucagon (Glucagen Diagnostic Kit) 0 mg IM STAT PRN; Protocol PRN Reason: Hypoglycemia Protocol Insulin Detemir (Levemir) 15 units SC [facility] Last Admin: 08/21/18 22:17 Dose: 15 units Insulin Detemir (Levemir) 10 units SC DAILY [facility] Last Admin: 08/21/18 09:04 Dose: 10 units Insulin Human Lispro (Humalog) 0 units SC [facility]; Protocol Last Admin: 08/21/18 22:14 Dose: Not Given Lactobacillus Acidophilus (Bacid Acidophilus) 1 cap PO DAILY [facility] Last Admin: 08/21/18 10:07 Dose: 1 cap Losartan Potassium (Cozaar) 100 mg PO DAILY [facility] Last Admin: 08/21/18 09:03 Dose: 100 mg Metronidazole (Flagyl) 500 mg PO Q8 [facility]; Protocol Last Admin: 08/22/18 00:17 Dose: 500 mg Mupirocin (Bactroban Ointment) 1 applic EXT BID [facility] Last Admin: 08/21/18 17:07 Dose: 1 applic Nystatin (Nystop Topical Powder) 1 applic TOP TID [facility] Pantoprazole Sodium (Protonix Ec Tab) 40 mg PO DAILY [facility] Last Admin: 08/21/18 09:07 Dose: 40 mg Polyethylene Glycol (Miralax) 17 gm PO DAILY [facility] Last Admin: 08/21/18 17:07 Dose: 17 gm Tramadol HCl (Ultram) 50 mg PO Q6 PRN PRN Reason: Pain, severe (8-10) Last Admin: 08/21/18 20:50 Dose: 50 mg - Labs Labs: 08/21/18 06:00 08/21/18 06:00 PT 12.3 Seconds (9.8-13.1) 08/20/18 13:49 INR 1.1 08/20/18 13:49 APTT 29.2 Seconds (25.6-37.1) 08/20/18 13:49 - Constitutional Appears: Well, Non-toxic, No Acute Distress - Head Exam Head Exam: ATRAUMATIC, NORMOCEPHALIC - Extremities Exam Additional comments: Left LE focused exam, R LE BKA Vasc: DP/PT pulses faintly palpable 1/4. Temp gradient warm to cool from proximal to distal. Cap refill < 3 seconds to all digits. No edema or erythema noted. Neuro: Couldn't be assessed due to the patient current mental status. Derm: Approximatly 1 cm x 1 cm X0.3 cm Oval ulceration noted to plantar/posterior left heel. Wound has granular base 100%. No probe to bone. no malodor. No drainage. No tracking, tunneling or undermining appreciated. No erythema MSK: Rigid contractures of all digits 1-5. Limited ROM at all major joints and diffuse arthritic changes. No pain on palpating the abby-ulcerative area. - Neurological Exam Neurological Exam: Alert, Awake, Oriented x3 - Psychiatric Exam Psychiatric exam: Normal Affect, Normal Mood Assessment and Plan - Assessment and Plan (Free Text) Assessment: 62 y/o F patient seen and evaluated for chronic ulcer of the L heel Plan: Patient seen and evaluated at the bedside. Plan discussed with Dr. Houston Charts, Labs and vitals reviewed: Afebrile, WBC 9.5 LE MRI (05/02): possible early acute and or developing acute osteomyelitis with possible underlying cellulitis L foot X-ray: Heel ulcer, No evidence of OM. MRI for further evaluation Multipodus boot to be worn at all times while in bed. Wound dressed with xeroform, DSD and ABD. Ordered bactroban to be added to the next dressing. Ordered L surgical shoe. Patient to ambulate all the times in the surgical shoe. No plan for surgical intervention at this time. Podiatry will continue to follow up the patient while in house.
[2018-08-22] MEDS: Lactobacillus Acidophilus 500 MU Cap PO SCH (08:55)
[2018-08-22] MEDS: POLYETHYLENE GLYCOL 3350 17 GM/Dose PACKET PO SCH (08:56)
[2018-08-22] MEDS: Insulin Lispro (humaLOG) 100 Units/ml Inj SC SCH ×2 (09:00→11:04)
[2018-08-22] MEDS ORDERED: Mupirocin 2% Cream TOP SCH (09:00)
[2018-08-22] MEDS: Insulin Detemir 100 Units/ml Inj SC SCH (09:00)
[2018-08-22] MEDS: Mupirocin 2% Oint 1GM UD EXT SCH (12:32)
[2018-08-22] MEDS: Pantoprazole 40 mg EC Tab PO SCH (12:34)
[2018-08-22] MEDS ORDERED: Sodium Chloride 0.9% 1,000 ML IV SCH (12:45)
[2018-08-22 13:33] LABS: HEMOGLOBIN 11.5 g/dL (12.0-16.0); MEAN CELL VOLUME 89.2 fl (81.0-99.0); MEAN CORPUSCULAR HEMOGLOBIN 28.1 pg (27.0-31.0); MEAN CORPUSCULAR HGB CONC 31.5 g/dL (33.0-37.0); RBC 4.09 Mil/uL (3.80-5.20); RED CELL DISTRIBUTION WIDTH 15.6 % (11.5-14.5); WHITE BLOOD COUNT 10.7 K/uL (4.8-10.8)
[2018-08-22 13:49] LABS: BLOOD UREA NITROGEN 13 mg/dl (7-17); CALCIUM 8.6 mg/dL (8.4-10.2); GFR NON-AFRICAN AMERICAN 50
[2018-08-22] MEDS ORDERED: Potassium Chloride 20 mEq ER Tab PO ONE (14:18)
--- NOTE | 2018-08-22 22:10 | PQF ---
PROVIDER RESPONSE TEXT: Provider was unable to determine a response for this query. REVIEWER QUERY TEXT: Documentation Clarification Your help is requested in clarifying the following clinical documentation, if you can please further specify in the medical record and discharge summary. Please clarify the possible type of colitis if known: --Allergic --Drug induced --Infectious --Ischemic --Non-Infectious --Ulcerative --Other ( Please specify) --Unknown The patient's Clinical Indicators include: Presented with abdominal pain and diarrhea. WBC 16.4 L shift . Stool Leukocytes negative. Stool C. Difficile negative. CT Abdomen: No definitive acute abdominal findings. Rx: Flagyl po Query created by: Charlene Armando on 08/22/2018 10:23 AM Electronically signed by: Cyndie Orellana MD 08/22/2018 10:07 PM
--- NOTE | 2018-08-23 05:52 | DS ---
REASON FOR ADMISSION This is a 62-year-old female with history of multiple medical problems presented and admitted through emergency room. The patient was evaluated in the emergency room and she was found to have hyperkalemia, dehydration, and acute on top of chronic kidney disease. COURSE OF HOSPITALIZATION: The patient was admitted to medical floor and she was continued on IV fluid. The patient was complaining of constipation that responded to stool softener. The patient's symptoms gradually relieved and she was discharged home after arrangement. FINAL DIAGNOSES: Hyperkalemia, [id number] kidney disease, dehydration, type 2 diabetes mellitus, peripheral vascular disease status post right below knee amputation, and diabetic foot ulcer. [facility] MD Esteban
== END 2018-08-22 16:24 | disposition home or self-care (01) | DRG 392 ==
LOC: H.ER 12:23 → H.ERHOLD 17:42 → H.MEDSURG1 21:00
PROVIDERS: ADMIT Internal Medicine; ATTEND Internal Medicine
DX: K52.9 Noninfective gastroenteritis and colitis, unspecified (principal); L97.429 Non-pressure chronic ulcer of left heel and midfoot with unspecified severity; E87.5 Hyperkalemia; E11.22 Type 2 diabetes mellitus with diabetic chronic kidney disease; E11.51 Type 2 diabetes mellitus with diabetic peripheral angiopathy without gangrene; E11.65 Type 2 diabetes mellitus with hyperglycemia; I12.9 Hypertensive chronic kidney disease with stage 1 through stage 4 chronic kidney disease, or unspecified chronic kidney disease; N18.9 Chronic kidney disease, unspecified; E11.621 Type 2 diabetes mellitus with foot ulcer; E78.00 Pure hypercholesterolemia, unspecified; F03.90 Unspecified dementia, unspecified severity, without behavioral disturbance, psychotic disturbance, mood disturbance, and anxiety; I25.10 Atherosclerotic heart disease of native coronary artery without angina pectoris; Z95.5 Presence of coronary angioplasty implant and graft; Z89.511 Acquired absence of right leg below knee; Z79.82 Long term (current) use of aspirin; Z79.4 Long term (current) use of insulin; Z79.02 Long term (current) use of antithrombotics/antiplatelets; Z88.6 Allergy status to analgesic agent; Z88.5 Allergy status to narcotic agent; Z91.013 Allergy to seafood; F41.9 Anxiety disorder, unspecified; M19.90 Unspecified osteoarthritis, unspecified site; K21.9 Gastro-esophageal reflux disease without esophagitis; E86.0 Dehydration; K59.00 Constipation, unspecified; Z72.0 Tobacco use; N28.9 Disorder of kidney and ureter, unspecified; H54.8 Legal blindness, as defined in USA